=== PATIENT | female | born 1995 | race Caucasian/White ===

== ENCOUNTER 2019-01-24 00:23 | Outpatient (CLI) | payer MEDICAID ==
[~2019-01-24] VITALS: Ht 162.6 cm; Wt 109.5 kg
--- NOTE | 2019-01-24 00:30 | NUR ---
MAHNAZ ARAGON presented to unit via wc from ED, accompanied by adoptive parent, with c/o POSS CONTRACTIONS 37 WKS PREG. MAHNAZ ARAGON weighed, gowned, voided, and to bed. EFHM and TOCO applied, VS taken. MAHNAZ ARAGON oriented to bed controls, call light, TV, heat, and A/C controls. assessments to follow per this rn.
--- NOTE | 2019-01-24 00:56 | NUR ---
Physician at nurses station upon pt arrival and currently. Denies wanting u/a.
[2019-01-24 01:00] VITALS: BP 136/86
[2019-01-24] MEDS ORDERED: LACTATED RINGERS 1,000 ML IV ONE (03:00)
[2019-01-24] MEDS: LACTATED RINGERS 1,000 ML IV SCH ×2 (03:00→06:55)
[2019-01-24] MEDS: BUTORPHANOL INJ 2 MG/ML (STADOL) VIAL IV PRN ×2 (03:58→07:41)
[2019-01-24] MEDS ORDERED: LACTATED RINGERS 1,000 ML IV SCH (04:00)
--- NOTE | 2019-01-24 07:00 | NUR ---
Report from Michael ambrose.
--- NOTE | 2019-01-24 07:00 | NUR ---
spesis screen int not completed as no blood work was drawn to evaluate.
[2019-01-24 07:15] VITALS: BP 133/84
--- NOTE | 2019-01-24 07:30 | NUR ---
Initial assessment completed, vss, pt resting in bed with adopted mother at bedside. See interventions for detailed assessments. Plan of care explained, questions answered, pt verbalizes understanding, monitors readjusted. Will monitor closely.
[2019-01-24 08:00] VITALS: BP 132/85
--- NOTE | 2019-01-24 10:10 | NUR ---
DR PAREDES CALLED, UPDATED ABOUT PT, SVE, CONTRACTION PATTERN, NEW ORDERS RECEIVED, PLAN UPDATED WITH PT, PT VERBALIZES UNDERSTANDING.
[2019-01-24] MEDS ORDERED: hydrOXYzine (VISTARIL) 25 MG capsule/tablet PO ONE (10:30)
--- NOTE | 2019-01-24 10:30 | NUR ---
PT RIDING HOME WITH ADOPTING MOTHER, [facility] 25MG GIVEN PO, D/C INSTRUCTIONS EXPLAINED TO PT/ADOPTING MOTHER, INFORMATION SIGNED, QUESTIONS ANSWERED, EXPLAINED LABOR PRECAUTIONS AND WHEN TO RETURN TO WS IF NEEDED. PT VERBALIZES UNDERSTANDING, DENIES C/O OR NEEDS.
--- NOTE | 2019-01-24 10:45 | NUR ---
PT DISCHARGED TO HOME, AMBULATED PER PT REQUEST TO PRIVATE CAR WITH ADOPTING MOTHER OF , NO DISTRESS NOTED, PT TO FOLLOW UP WITH DR PAREDES ON MondayJanuary FOR APPOINTMENT OR RETURN TO IF NEEDED.
--- NOTE | 2019-01-28 12:44 | Physician Query-Final Dx ---
LEXII RON 01/28/19 1244: Clinic Account Progress/Dx Physician Query: Please give diagnosis Please provide diagnosis and weeks of gestation. Date of Service Jan 24, 2019 at 00:23 ANGELA PAREDES MD 02/09/197: Clinic Account Progress/Dx DIAGNOSIS: Diagnosis: (1) Uterine contractions Diagnosis Contractions without cervical change at 37 weeks 2 days. LEXII RON Jan 28, 2019 12:44 ANGELA PAREDES MD Feb 09, 2019 20:27
== END 2019-01-24 10:45 | disposition home or self-care (01) ==
LOC: LDRP 00:23 → WSo 00:23
PROVIDERS: ATTEND Family Medicine
DX: O62.9 Abnormality of forces of labor, unspecified (principal); Z3A.35 35 weeks gestation of pregnancy
CPT/HCPCS: 96361; 96374; 96376; 99213

== ENCOUNTER 2019-01-31 04:50 | Outpatient (CLI) | payer MEDICAID ==
[~2019-01-31] VITALS: Ht 162.6 cm; Wt 111.6 kg
--- NOTE | 2019-01-31 04:57 | NUR ---
MAHNAZ ARAGON presented to unit via ambulation from ED, accompanied by family, with c/o CRAMPING. MAHNAZ ARAGON weighed, gowned, voided, and to bed. EFHM and TOCO applied, VS taken. MAHNAZ ARAGON oriented to bed controls, call light, TV, heat, and A/C controls.
[2019-01-31 05:10] VITALS: BP 124/89
[2019-01-31] MEDS ORDERED: ACYC200C PO (05:18)
[2019-01-31] MEDS ORDERED: HYDR50CA PO (05:19)
[2019-01-31 06:02] LABS: BACTERIA,URINE FEW /HPF; BILIRUBIN,URINE NEGATIVE (NEGATIVE); CLARITY,URINE SLIGHTLY CLOUDY; COLOR,URINE YELLOW; GLUCOSE, URINE (UA) 2+ (NEGATIVE); KETONES,URINE NEGATIVE (NEGATIVE); LEUKOCYTE ESTERASE ,URINE 1+ (NEGATIVE); NITRITE,URINE NEGATIVE (NEGATIVE); PH,URINE 6 (5-9); PROTEIN,URINE NEGATIVE (NEGATIVE); RBC,URINE RARE /HPF; UROBILINOGEN,URINE 1 MG/DL (NORMAL); WBC,URINE RARE /HPF
--- NOTE | 2019-01-31 06:25 | NUR ---
This RN called Dr Mzea to notify of patient arrival and c/o cramping since last night. Notified of contraction pattern and uterine irritability as well as FHR variability. Notified Dr Meza of vs, all sves, and UA results. New orders for tylenol, benadryl and discharge home received.
[2019-01-31] MEDS ORDERED: ACETAMINOPHEN 500 MG TAB (TYLENOL) ONE (06:34)
[2019-01-31] MEDS ORDERED: diphenhydrAMINE 25 MG TAB (BENADRYL) PO ONE ×2 (06:35→06:45)
--- NOTE | 2019-01-31 06:40 | NUR ---
Discharge instructions given to and reviewed with patient. Encouraged patient to call with any questions or concerns at anytime. Patient verbalized understanding.
[2019-01-31] MEDS ORDERED: ACETAMINOPHEN 500 MG TAB (TYLENOL) PO ONE (06:45)
--- NOTE | 2019-01-31 06:45 | NUR ---
Patient and friend ambulating off of unit to private vehicle at this time.
--- NOTE | 2019-01-31 21:26 | Short Stay Summary-Hospitalist ---
Short Stay Diagnosis D/C Date 01/31/19 Third Trimester 38 week gestation Pelvic pressure Contractions AMOR INFANTE MD Jan 31, 2019 21:26
== END 2019-01-31 06:45 | disposition home or self-care (01) ==
LOC: WSo 04:50 → LDRP 04:51 → WSo 06:45
PROVIDERS: ATTEND Family Medicine
DX: O62.9 Abnormality of forces of labor, unspecified (principal); Z3A.38 38 weeks gestation of pregnancy
CPT/HCPCS: 81000; 99213

== ENCOUNTER 2019-02-06 06:40 | Inpatient (IN) | payer MEDICAID ==
[2019-02-06] VITALS (67 sets, daily range): BP systolic 86–165; BP diastolic 39–103
[~2019-02-06] VITALS: Ht 162.6 cm; Wt 111.6 kg
[~2019-02-06 06:40] MED LIST: ACYC200C PO; HYDR50CA PO
--- NOTE | 2019-02-06 06:45 | NUR ---
MAHNAZ ARAGON presented to unit via ambulatory from ED, accompanied by mother, with c/o INDUCTION. MAHNAZ ARAGON weighed, gowned, voided, and to bed. EFHM and TOCO applied, VS taken. MAHNAZ ARAGON oriented to bed controls, call light, TV, heat, and A/C controls.
--- OUTSIDE RECORDS SUMMARY | 2019-02-06 06:48 | XMS REPORT ---
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 Name Role Phone ANGELA PAREDES Unavailable PROBLEMS Type Condition ICD9-CM Code [id number] Code Onset Dates Condition Status SNOMED Code Problem Lumbago with sciatica, unspecified side M54.40 Active 852528905 Problem Other chronic pain G89.29 Active [id number] ALLERGIES No Known Allergies ENCOUNTERS Encounter Location Date Diagnosis [address] [address] Feb, [facility] [address] [facility] [id number] [address] Jan, [address] [address] Jan, Supervision of other high risk pregnancies, third trimester O09.893 ; Morbid obesity E66.01 and 37 weeks gestation of Z3A.[address] [address] Jan, Supervision of other high risk pregnancies, third trimester O09.893 ; Morbid obesity E66.01 and 36 weeks gestation of Z3A.[address] [address] Jan, Supervision of other high risk pregnancies, third trimester O09.893 ; HSV (herpes simplex virus) infection B00.9 and Morbid obesity E66.[address] [address] Jan, Large for dates P08.1 and Supervision of other high risk pregnancies , third trimester O09.[address] [address] Dec, [address] [address] Dec, Supervision of other high risk pregnancies, third trimester O09.893 and Large for dates P08.[address] [address] Dec, [address] [address] Dec, Supervision of other high risk pregnancies, third trimester O09.893 ; 32 weeks gestation of Z3A.32 ; Other chronic pain G89.29 and Lumbago with sciatica, unspecified side M54.[address] [address] Nov, [facility] [address] [address] [place] [address] Nov, Mouth pain K13.79 and Vomiting R11.10 IMMUNIZATIONS No Known Immunizations SOCIAL HISTORY Never Assessed REASON FOR VISIT OB PLAN OF CARE Activity Details Follow Up 1 Week Reason: VITAL SIGNS Height 64 in 2019-01-14 Weight 234 lbs 2019-01-14 BMI 40.166 kg/m2 2019-01-14 Blood pressure systolic 121 mmHg 2019-01-14 Blood pressure diastolic 70 mmHg 2019-01-14 MEDICATIONS Medication Instructions Dosage Frequency Start Date End Date Duration Status Amoxicillin 500 MG Orally every 8 hrs 1 tablet 8h 14 Nov, 2018 10 day(s ) Unknown Tylenol 325 MG Orally every 4 hrs 1 tablet as needed 4h Unknown Cyclobenzaprine HCl 10 MG Orally Three times a day 1 tablet as needed 8h 11 Dec, 2018 30 days Active 28-0.8 MG Orally Once a day 1 tablet 24h 30 day(s) Active Acyclovir 400 MG Orally Twice a day 1 tablet 12h Jan, 30 days Active HydrOXYzine HCl 25 MG Orally every 8 hrs 1 tablet as needed 8h 22 Dec, 2018 30 days Active Zofran Unknown RESULTS No Results PROCEDURES Procedure Date Ordered Result Body Site LAB NOT BILLED BY [facility] January 14, 2019 INSTRUCTIONS MEDICATIONS ADMINISTERED No Known Medications
[2019-02-06] MEDS ORDERED: OXYTOCIN/NORMAL SALINE 500 ML IV SCH (07:48)
[2019-02-06] MEDS ORDERED: AMPICILLIN FOR IV USE 2,000 MG in WATER (STERILE) FOR INJECTION 14.8 ML IV SCH (07:48)
[2019-02-06] MEDS ORDERED: MINERAL OIL CONCENTRATE 99.9% 15 ML UDC TOP PRN (08:00)
[2019-02-06] MEDS: D5 LR IV SOLUTION 1,000 ML IV SCH ×2 (08:25→16:45)
[2019-02-06 08:41] LABS: BASOPHILS % (AUTO) 0 % (0-10); EOSINOPHILS # (AUTO) 0.2 10^3/uL (0.0-0.3); EOSINOPHILS % (AUTO) 2 % (0-10); HEMATOCRIT 34 % (35-52); LYMPHOCYTES # (AUTO) 1.9 X 10^3 (1.0-4.0); LYMPHOCYTES % (AUTO) 17 % (12-44); MEAN CORPUSCULAR HEMOGLOBIN 27 PG (25-34); MEAN CORPUSCULAR HGB CONC 33 G/DL (32-36); MEAN CORPUSCULAR VOLUME 84 FL (80-99); MEAN PLATELET VOLUME 9.9 FL (7.4-10.4); MONOCYTES # (AUTO) 0.7 X 10^3 (0.0-1.0); MONOCYTES % (AUTO) 6 % (0-12); NEUTROPHILS # (AUTO) 8.6 X 10^3 (1.8-7.8); NEUTROPHILS % (AUTO) 75 % (42-75); PLATELET COUNT 239 10^3/uL (130-400); RED CELL DISTRIBUTION WIDTH 13.5 % (10.0-14.5); WHITE BLOOD COUNT 11.5 10^3/uL (4.3-11.0)
[2019-02-06] MEDS ORDERED: FLU QUADRIvalent (5+ YOA) 2018-2019 (AFLURIA) 0.5 ML IM ONE (09:45)
[2019-02-06] MEDS ORDERED: LACTATED RINGERS 1,000 ML IV ONE (10:15)
[2019-02-06] MEDS ORDERED: SUFENTA 0.6MCG/ML BUPIVA 0.125 100 ML ONE (10:15)
--- NOTE | 2019-02-06 10:47 | NUR ---
[address] AND Jose ROYAL CRNA here for epidural placement. Procedure explained, consent reviewed and signed by anesthesia. Questions answered to patient's satisfaction. Time out taken to verify correct patient/procedure. 1056 Patient up to side of bed, assisted into sitting position. 1101 Betadine prep done x3 and sterile drape applied. 1105 Local done, see anesthesia record. 1111 Test dose given, see anesthesia record for drug and dosage. Epidural catheter secured in place. Epidural placement complete. 1118 Assisted back into bed, monitors adjusted. Epidural dosed, see anesthesia record. Epidural of Sufenta/Bupvicaine @12cc/hr stated per pump. Patient tolerated procedure well.
[2019-02-06] MEDS ORDERED: LIDOCAINE PF 2% 5 ML (XYLOCAINE) VIAL ONE (10:53)
[2019-02-06] MEDS ORDERED: BUPIVACAINE 0.25% 30 ML (SENSORCAINE) VIAL ONE (10:53)
[2019-02-06] MEDS ORDERED: fentaNYL INJECTION 100 MCG/2 ML AMP ONE (10:53)
[2019-02-06] MEDS: EPIDURAL (SUFENTA 0.6MCG/ML BUPIVA 0.125%) 100 ML BAG EPI PRN ×2 (11:20→18:31)
[2019-02-06] MEDS ORDERED: LACTATED RINGERS 1,000 ML IV SCH (11:37)
[2019-02-06] MEDS ORDERED: NALOXONE 0.4 MG/ML 1 ML (NARCAN) VIAL IV PRN ×2 (11:45)
[2019-02-06] MEDS ORDERED: diphenhydrAMINE 50 MG/ML INJ (BENADRYL) IV PRN (11:45)
[2019-02-06] MEDS ORDERED: METOCLOPRAMIDE INJ 10 MG/2 ML (REGLAN) IV PRN (11:45)
[2019-02-06] MEDS: ONDANSETRON 4 MG/2 ML (SDV) Z0FRAN IV PRN ×2 (11:55→20:31)
[2019-02-06] MEDS: AMPICILLIN FOR IV USE 1,000 MG in WATER (STERILE) FOR INJECTION 7.4 ML IV SCH ×3 (13:25→21:45)
[2019-02-06] MEDS ORDERED: CATHETER FLUSH 10 ML SYR IV SCH (14:00)
--- NOTE | 2019-02-06 17:49 | NUR ---
ACCORDING TO RECORDS, FLU VACCINE WAS GIVEN ON 12/22/2018.
[2019-02-06] MEDS ORDERED: LIDOCAINE/EPI 2% 1:200,00 (XYLOCAINE) 10 ML VIAL ONE (20:43)
[2019-02-07] VITALS (19 sets, daily range): BP systolic 99–153; BP diastolic 54–87
--- NOTE | 2019-02-07 04:30 | NUR ---
Epidural cath removed, cath tip in tact, site wnl and left o/a. Pt assisted stand by to bathroom, pericare pads changed as pt voids for the first time . Pt to w/c and tx to pp room 309. Oriented to call system and surroundings. No ss distress noted, understanding voiced, needs denied.
[2019-02-07] MEDS ORDERED: OXYTOCIN/NORMAL SALINE 500 ML IV SCH (04:46)
[2019-02-07] MEDS ORDERED: WITCH HAZEL(TUCKS) 40 EA JAR TOP PRN (05:00)
[2019-02-07] MEDS ORDERED: ACETAMINOPHEN 500 MG TAB (TYLENOL) PO PRN (05:00)
[2019-02-07] MEDS ORDERED: TETANUS,DIPTH,PERTUSS P/F (BOOSTRIX) 0.5 ML VIAL IM ONE (05:00)
[2019-02-07] MEDS ORDERED: BENZOCAINE/MENTHOL (DERMOPLAST) 56 ML CAN TP PRN (05:00)
[2019-02-07] MEDS ORDERED: MEASLES,MUMPS,RUBELLA 1 EA INJ SQ ONE (05:00)
--- NOTE | 2019-02-07 05:15 | NUR ---
Pt up and showers independently. will cont to monitor.
[2019-02-07] MEDS ORDERED: CATHETER FLUSH 10 ML SYR IV SCH (06:00)
--- NOTE | 2019-02-07 08:01 | History & Physical-OB ---
OB - Chief Complaint & HPI Date/Time Date of Admission: Date of Admission: Feb 06, 2019 at 06:40 Date seen by a Provider: Feb 06, 2019 Time Seen by a Provider: 20:00 Chief Complaint/History OB-Reason for Admission/Chief: Induction of Labor Hx : 2 Hx Para: 1 Expected Date of Delivery: Feb 13, 2019 Gestational Age in Weeks: 39 Gestational Age in Days: 1 Indication for induction: maternal discomfort Admission Nurse Assessment Rev: Yes Allergies and Home Medications Allergies Coded Allergies: No Known Drug Allergies (Unverified , 02/06/19) Home Medications Acyclovir Unknown Strength Capsule, Unknown Dose PO BID, (Reported) Patient Home Medication List Home Medication List Reviewed: Yes OB - History Hx of Present Care: Yes Ultrasounds: Normal mid trimester US Obstetrical Complications: None Medical Complications: None Delivery History Adverse Rxn to Tranfusion: No Patient Past Medical History normal Social History/Family History Alcohol Use: Denies Use Recreational Drug Use: No Immunizations Hepatitis B: Yes Date of Influenza Vaccine: Aug 16, 2018 OB - Admission Exam Physical Exam Vitals: Vital Signs 02/07/19 02/07/19 02/07/19 01:10 02:30 04:05 Temp 99.1 Pulse 116 Resp 18 B/P (MAP) 102/61 (75) Pulse Ox 100 O2 Delivery Room Air HEENT: NCAT Heart: Rhythm Normal Lungs: Clear Abdomen: Gravid Extremities: Normal Reflexes: Normal Cervical Dilatation: 5cm Effacement: 75% Station: -1 Membranes: Ruptured Amniotic Fluid: Clear Heart Rate: 130's Accelerations: Accelerations Present Decelerations: No Decelerations Short Term Variability: Present Senior Care Variability: Average (6-25) Contractions on Admission: None Intensity: Mild Labs Laboratory Tests Test 02/06/19 08:30 Range/Units White Blood Count 11.5 H 4.3-11.0 10^3/uL Red Blood Count 4.02 L 4.35-5.85 10^6/uL Hemoglobin 11.0 L 11.5-16.0 G/DL Hematocrit 34 L 35-52 % Mean Corpuscular Volume 84 80-99 FL Mean Corpuscular Hemoglobin 27 25-34 PG Mean Corpuscular Hemoglobin Concent 33 32-36 G/DL Red Cell Distribution Width 13.5 10.0-14.5 % Platelet Count 239 130-400 10^3/uL Mean Platelet Volume 9.9 7.4-10.4 FL Neutrophils (%) (Auto) 75 42-75 % Lymphocytes (%) (Auto) 17 12-44 % Monocytes (%) (Auto) 6 0-12 % Eosinophils (%) (Auto) 2 0-10 % Basophils (%) (Auto) 0 0-10 % Neutrophils # (Auto) 8.6 H 1.8-7.8 X 10^3 Lymphocytes # (Auto) 1.9 1.0-4.0 X 10^3 Monocytes # (Auto) 0.7 0.0-1.0 X 10^3 Eosinophils # (Auto) 0.2 0.0-0.3 10^3/uL Basophils # (Auto) 0.0 0.0-0.1 10^3/uL OB - Assessment/Plan/Diagnosis Assessment Assessment: induction of labor Admission Dx Induction of labor. Admission Status: Inpatient Order (span 2 midnights) Reason for Inpatient Admission: Induction of labor- Labor distocia Plan Plan: Induction Induction Method: per Pitocin Protocol Other Plan Will add IUPC to monitor contraction strength and increase pitocin to 30. Copy Copies To 1: ANGELA PAREDES MD, KATRINA M MD Feb 07, 2019 08:01
--- NOTE | 2019-02-07 08:03 | OB Labor & Delivery Record ---
Vag Delivery Note Vag Delivery Note Date of Delivery: 02/07/19 Preoperative Diagnosis: Fiorella Beal is a (23 /Para 2 / 1,Gestational Age (wks)39with [1 day] Postoperative Diagnosis: Same Surgeon: ANGELA PAREDES Hims Coder: [none] Anesthesia: [epidural] Delivery Type: [] Findings: [] Viable [female] infant, apgars [7/8 at 1 and 5 minutes], weight [7 pounds 15 ounces] Lacerations: Intact placenta with 3 vessel cord. No nuchal cord, body cord or shoulder dystocia Estimated Blood Loss: [200] ml Complications: None Condition: Stable Description of Procedure: The patient is a 23 year old female who presented [for induction of labor]. She was admitted and informed consent was obtained. Her labor course was remarkable for [distocia of labor] She progressed to complete dilatation and began to push. She was then set up for delivery. The infant's head was delivered atraumatically in the [OA] position. The shoulders and remainder of the ' s body were then delivered without difficulty. Upon delivery, the head was held below the level of the perineum and the mouth and nares were bulb suctioned. The cord was doubly clamped after 60 seconds and placed on maternal abdomen. An intact placenta with 3-vessel cord delivered via Marlyn and there was found to be minimal bleeding.~ Vigorous fundal massage was performed and the fundus was found to be firm. IV oxytocin was given. Examination of the vagina and perineum revealed no lacerations. Following the repair, sponge, instrument and needle counts were correct. Mom and baby were both in stable condition in the labor suite. Vitals - Labs Vital Signs - I&O Vital Signs Date Time Temp Pulse Resp B/P (MAP) Pulse Ox O2 Delivery O2 Flow Rate FiO2 02/07/19 04:05 116 18 102/61 (75) Room Air 02/07/19 03:50 106 18 99/56 (70) Room Air 02/07/19 03:35 101 18 106/54 (71) Room Air 02/07/19 03:20 114 18 116/55 (75) Room Air 02/07/19 03:00 120 18 115/56 (75) Room Air 02/07/19 02:30 99.1 18 Room Air 02/07/19 02:15 98.9 101 18 127/74 (91) Room Air 02/07/19 02:00 98.5 110 18 122/70 (87) Room Air 02/07/19 01:45 98.3 113 18 135/80 (98) Room Air 02/07/19 01:30 98.1 18 153/76 (101) Room Air 02/07/19 01:10 105 18 117/68 (84) 100 Non Rebreather 02/07/19 01:00 108 18 122/69 (86) 100 Non Rebreather 02/07/19 00:45 97.7 133 18 125/69 (87) 100 Non Rebreather 02/07/19 00:30 103 18 114/61 (78) 98 Non Rebreather 02/07/19 00:15 106 18 109/59 (76) 100 Non Rebreather 02/07/19 00:00 111 18 111/56 (74) 100 Non Rebreather 02/06/19 23:45 111 18 111/56 (74) 100 Non Rebreather 02/06/19 23:30 103 18 111/56 (74) 100 Non Rebreather 02/06/19 23:15 121 18 113/65 (81) 100 Non Rebreather 02/06/19 23:00 113 18 135/55 (81) 98 Non Rebreather 02/06/19 22:45 104 18 113/58 (76) 100 Non Rebreather 02/06/19 22:30 102 18 114/55 (74) 100 Non Rebreather 02/06/19 22:15 117 18 112/62 (79) 100 Non Rebreather 02/06/19 22:00 103 18 115/63 (80) 100 Non Rebreather 02/06/19 21:45 104 18 100 Non Rebreather 02/06/19 21:30 118 18 117/55 (75) 100 Non Rebreather 02/06/19 21:15 92 18 91/52 (65) 100 Non Rebreather 02/06/19 21:00 98 18 92/54 (67) 100 Non Rebreather 02/06/19 20:45 101 18 92/54 (67) 100 Non Rebreather 02/06/19 20:30 98.7 120 18 112/78 (89) Non Rebreather 02/06/19 20:15 98.7 114 18 131/76 (94) Non Rebreather 02/06/19 20:00 118 18 128/72 (90) 98 Non Rebreather 02/06/19 19:45 116 18 120/58 (78) 98 Non Rebreather 02/06/19 19:30 123 18 98 Room Air 02/06/19 19:15 125 18 130/70 (90) 98 Room Air 02/06/19 19:00 120 18 115/59 (77) 99 Room Air 02/06/19 18:45 122 18 98 Room Air 02/06/19 18:30 115 18 117/68 (84) 98 Room Air 02/06/19 18:15 113 18 123/72 (89) 98 Room Air 02/06/19 18:00 111 18 116/67 (83) 97 Room Air 02/06/19 17:45 105 18 120/68 (85) 97 Room Air 02/06/19 17:30 97.0 108 18 119/69 (86) 97 Room Air 02/06/19 17:15 112 18 111/71 (84) 98 Room Air 02/06/19 17:00 97.3 118 18 109/55 (73) 98 Room Air 02/06/19 16:45 125 18 121/81 (94) Room Air 02/06/19 16:30 112 18 119/67 (84) Room Air 02/06/19 16:15 Room Air 02/06/19 16:00 111 18 116/55 (75) Room Air 02/06/19 15:45 117 18 142/77 (98) Room Air 02/06/19 15:30 97.7 129 18 98 Room Air 02/06/19 15:15 118 18 101/65 (77) 99 Room Air 02/06/19 15:00 115 18 105/52 (69) 99 Room Air 02/06/19 14:45 129 18 98/53 (68) 98 Room Air 02/06/19 14:30 120 18 96/50 (65) 98 Room Air 02/06/19 14:15 117 18 110/66 (81) 97 Room Air 02/06/19 14:00 111 18 108/57 (74) 97 Room Air 02/06/19 13:45 112 18 110/59 (76) 98 Room Air 02/06/19 13:30 107 18 108/56 (73) 97 Room Air 02/06/19 13:15 96.9 121 18 120/68 (85) 97 Room Air 02/06/19 13:00 127 18 86/39 (55) 98 Room Air 02/06/19 12:58 106 20 89/44 (59) Room Air 02/06/19 12:55 111 20 93/52 (66) 97 Room Air 02/06/19 12:51 118 20 97/46 (63) Room Air 02/06/19 12:45 104 18 121/71 (88) 99 Room Air 02/06/19 12:30 104 18 121/63 (82) 98 Room Air 02/06/19 12:15 121 20 118/66 (83) 98 Room Air 02/06/19 12:00 121 20 99 Room Air 02/06/19 11:56 121 20 126/83 (97) Room Air 02/06/19 11:51 131 20 122/69 (86) Room Air 02/06/19 11:47 97.1 124 20 128/71 (90) 99 Room Air 02/06/19 11:45 132 20 99 Room Air 02/06/19 11:41 128 20 141/96 (111) 96 Room Air 02/06/19 11:38 124 20 126/72 (90) 99 Room Air 02/06/19 11:33 114 20 121/67 (85) 98 Room Air 02/06/19 11:30 117 20 99 Room Air 02/06/19 11:25 116 20 126/66 (86) Room Air 02/06/19 11:22 118 20 134/63 (86) 99 Room Air 02/06/19 11:18 114 20 145/73 (97) 98 Room Air 02/06/19 11:16 125 20 145/98 (114) 98 Room Air 02/06/19 11:15 113 20 147/96 (113) 97 Room Air 02/06/19 11:11 111 20 155/98 (117) 98 Room Air 02/06/19 11:08 114 20 165/99 (121) 98 Room Air 02/06/19 11:05 132 20 161/90 (113) 99 Room Air 02/06/19 11:02 114 20 138/88 (105) Room Air 02/06/19 11:00 97.3 124 18 146/103 (117) 99 Room Air 02/06/19 10:45 106 18 141/89 (106) Room Air 02/06/19 10:30 107 18 131/80 (97) Room Air 02/06/19 10:15 104 18 142/83 (102) Room Air 02/06/19 10:00 111 18 134/89 (104) Room Air 02/06/19 09:45 126 18 106/71 (83) Room Air 02/06/19 09:30 97.2 I & O 02/07/19 07:00 Intake Total 4000 ml Balance 4000 ml Labs Laboratory Tests 02/06/19 08:30: White Blood Count 11.5H, Red Blood Count 4.02L, Hemoglobin 11.0L, Hematocrit 34L , Mean Corpuscular Volume 84, Mean Corpuscular Hemoglobin 27, Mean Corpuscular Hemoglobin Concent 33, Red Cell Distribution Width 13.5, Platelet Count 239, Mean Platelet Volume 9.9, Neutrophils (%) (Auto) 75, Lymphocytes (%) (Auto) 17, Monocytes (%) (Auto) 6, Eosinophils (%) (Auto) 2, Basophils (%) (Auto) 0, Neutrophils # (Auto) 8.6H, Lymphocytes # (Auto) 1.9, Monocytes # (Auto) 0.7, Eosinophils # (Auto) 0.2, Basophils # (Auto) 0.0 ANGELA PAREDES MD Feb 07, 2019 08:03
--- NOTE | 2019-02-07 09:00 | NUR ---
A.M. ASSESSMENT COMPLETED. VSS. PLANNING TO ADOPT OUT. ADOPTIVE MOTHER AND FAMILY AND PT'S FAMILY IN ROOM.
--- NOTE | 2019-02-07 09:15 | NUR ---
PT STATES SHE ALREADY SHOWERED. [facility] SUPPLIES TO ROOM.
[2019-02-07] MEDS: IBUPROFEN 600 MG (MOTRIN) TAB PO SCH ×2 (09:29→15:47)
--- NOTE | 2019-02-07 09:29 | NUR ---
C/O CRAMPING. ROUTINE MOTRIN 600 MG P.O.GIVEN. OFFERED WARM BLANKET BUT DECLINES AT THIS TIME.
--- NOTE | 2019-02-07 12:00 | NUR ---
CONTINUES TO HOLD INFANT OFF AND ON WITH ADOPTIVE FAMILY IN AND OUT OF ROOM WELL PT'S FAMILY.
--- NOTE | 2019-02-07 13:30 | NUR ---
PT TEARFUL HOLDING INFANT. HOUSING OFFICER HERE. JUAN MURPHY ON UNIT.
--- NOTE | 2019-02-07 14:20 | Anesthesia-Regional Post-Op ---
Regional Patient Condition Mental Status: Alert, Oriented x3 Circulation: Same as Pre-Op Headache: Absent Sensation: Full Recovery Motor Block: Absent Post Op Complications Complications None Follow Up Care/Instructions Patient Instructions None needed. Anesthesia/Patient Condition Patient is doing well, no complaints, stable vital signs, no apparent adverse anesthesia problems. No complications reported per nursing. GINA ROYAL CRNA Feb 07, 2019 14:20
--- NOTE | 2019-02-07 15:15 | NUR ---
PT'S MOM TO DESK STATING PT WANTING TO LEAVE AFTER PAPERS ARE SIGNED.
--- NOTE | 2019-02-07 15:37 | NUR ---
DR. SANTAMARIA NOTIFIED OF PT WANTING TO LEAVE THIS EVENING. WILL COME SEE PT. SOON.
--- NOTE | 2019-02-07 16:00 | NUR ---
PT'S MOM TO DESK STATING PT GOING TO GO AMA. STATES NEEDS TO GO GET SON AT [facility].
--- NOTE | 2019-02-07 16:06 | NUR ---
DR. SANTAMARIA NOTIFIED OF PT STATING SHE WILL GO AMA BECAUSE SHE DOESN'T WANT TO WAIT TO LEAVE. STATES SHE WILL BE HERE IN 30 MINUTES. PT AND MOM INFORMED.
--- NOTE | 2019-02-07 16:45 | NUR ---
DR. SANTAMARIA HERE TO SEE PT. TALKING WITH PT ABOUT DISCHARGE INSTRUCTIONS.
[2019-02-07] MEDS ORDERED: IBUP-844 PO (16:57)
--- NOTE | 2019-02-07 16:59 | Discharge Instructions ---
Discharge Inst-Women's Serv Depart Medications New, Converted or Re-Newed RX: Transmitted to Pharmacy ([facility]) New Medications: Ibuprofen (Ibu) 600 Mg Tablet 600 MG PO Q6H PRN for CRAMPS, #90 TAB 0 Refills Follow Up/Instructions Goal/Follow Up: Follow-up with Dr. Potter in 6wk Activity Activity: Activity as Tolerated Driving Instructions: You May Drive Nothing Inside Vagina: No Douching, No [place], No Tampons Diet Discharge Diet: No Restrictions Symptoms to Report to : Pain Increased, Fever Over 101 Degrees F, Vaginal Bleeding Increase, Vaginal Discharge Foul, Questions/Concerns, Shortness of Breath For Any Problems or Questions: Contact Your Physician ANNA SANTAMARIA DO Feb 07, 2019 16:59
--- NOTE | 2019-02-07 17:03 | Discharge Summary ---
Diagnosis/Chief Complaint Date of Admission Feb 06, 2019 at 06:40 Date of Discharge Feb 07, 2019 Admission Diagnosis Admission Diagnosis IOL at 39w1d Adoption GBS positive Discharge Diagnosis IOL at 39w1d s/p Adoption GBS positive Discharge Summary-OBS Procedures None. Discharge Physical Examination Allergies: Coded Allergies: No Known Drug Allergies (Unverified , 02/06/19) Vitals & I&Os Intake and Output 02/07/19 00:00 Intake Total 1000 ml Balance 1000 ml Vital Sign - Last 12Hours Date Time Temp Pulse Resp B/P (MAP) Pulse Ox O2 Delivery O2 Flow Rate FiO2 02/07/19 16:10 97.8 107 18 124/87 (99) 98 Room Air General Appearance: Alert, Oriented X3, Cooperative Psych/Mental Status: Mood NL Hospital Course routine course early release due to adoption Discharge Instructions to patient/family Please see electronic discharge instructions given to patient. Discharge Medications Reviewed and agree with Discharge Medication list on patient's Discharge Instruction sheet Clinical Quality Measures DVT/VTE Risk/Contraindication: Risk Factor Score Per Nursin RFS Level Per Nursing on Admit: 2=Moderate ANNA SANTAMARIA DO Feb 07, 2019 17:03
--- NOTE | 2019-02-07 17:10 | NUR ---
CM/SS. Patient had an open adoption pre-arrangement through a law firm in [place] and she voluntarily carried through with her plan after . Patient's support was her mother: Francy Collier, [address], [place] [address], PH [phone] Adoptive parents selected by patient were here: Odell and Karissa Prado of [place] All spent collective time together and bonding with infant, including Karissa's mother. Neurology Hospitalist had requested the involved parliamentary counsel be present for presentation of documents. Beauty Sales Advisor Mustapha Valladares presented Consent to Adoption of a Minor Child to patient, bid writer coordinated notary. Provider Relations Rep had not completed Power of Beauty Sales Advisor for and bid writer requested this before patient could leave hospital. Mustapha returned to his office to complete and provided later same day. Patient signed freely, original to Odell and Karissa, copies of both documents to 's chart. Patient did show strong emotions after signing Consent to Adopt, bid writer asked for confidential conversation with her and patient permitted her mother to stay also. Patient regained control and later showed some controlled tearing when holding . Discussed post relinquishment supports and counseling, patient stated she did not want counseling. Mother was present and indicated she may encourage patient to pursue. Patient has custody of her son age 3 who is temporarily staying with patient's dad and step mom. She was adamant to leave hospital as soon as possible to spend time with her son in [place]. Then she and her mother Francy are to return to [facility] and travel to [place] tomorrow. Patient plans to stay there with her mother 2 weeks for recuperation, then return home in [place].
--- NOTE | 2019-02-07 17:30 | NUR ---
DISCHARGE INSTRUCTIONS REVIEWED WITH COPY TO PT. STATES UNDERSTANDING OF ALL INSTRUCTIONS AND NEED TO F/U SCHEDULED AND NEEDED. DISMISSED FROM WS AMB TO FAMILY CAR IN STABLE CONDITION ACC BY PT'S MOM AND AUSTYN BORDEN. PT AND MOM TEARFUL.
== END 2019-02-07 17:30 | disposition home or self-care (01) | DRG 807 ==
LOC: LDRP 06:40
PROVIDERS: ADMIT Family Medicine; ATTEND Family Medicine
PROC: 3E033VJ Introduction of Other Hormone into Peripheral Vein, Percutaneous Approach (ICD-10-PCS; 2019-02-06)
PROC: 10E0XZZ Delivery of Products of Conception, External Approach (ICD-10-PCS; principal; 2019-02-07)
DX: O66.9 Obstructed labor, unspecified (principal); O99.820 Streptococcus B carrier state complicating pregnancy; Z3A.39 39 weeks gestation of pregnancy; Z37.0 Single live birth
CPT/HCPCS: 36415; 85025; 86850; 86900; 86901

== ENCOUNTER 2019-03-08 21:38 | Emergency (ER) | payer MEDICAID ==
[~2019-03-08] VITALS: Ht 165.1 cm; Wt 98.9 kg
[~2019-03-08 21:38] MED LIST changes: +IBUP-844 PO
--- NOTE | 2019-03-08 22:18 | ED Lower Extremity ---
General Chief Complaint: Lower Extremity Stated Complaint: RT ANKLE INJ Source: patient History of Present Illness Date Seen by Provider: Mar 08, 2019 Time Seen by Provider: 22:18 Initial Comments 23-year-old female presenting with complaints of right ankle pain. She states that she has injured ankle multiple times in the past. She was walking across the yard and axilla stepped in a hole. In the process she felt and heard several pops and cracks in the ankle. She had immediate pain and swelling. She also feels a lot of heat and the ankle and foot. She was concerned that she has a fracture due to the amount of pain and not being able to walk on it. She also admits to having a low tolerance for any pain. She has not taken anything for pain prior to coming in. She states that she immediately came to the emergency department from having the injury. She has not been elevating the ankle or foot since this happened. She has also not had any ice on it. She denies any other injuries from the fall Allergies and Home Medications Allergies Coded Allergies: No Known Drug Allergies (Unverified , 03/08/19) Home Medications Ibuprofen 600 Mg Tablet, 600 MG PO Q6H PRN for CRAMPS Prescribed by: ANNA SANTAMARIA on 02/07/19 1657 Ibuprofen 800 Mg Tablet, 800 MG PO Q8H PRN for PAIN Prescribed by: OLIVERIO VICENTE on 03/08/19 2310 Patient Home Medication List Home Medication List Reviewed: Yes Review of Systems Constitutional: see HPI EENTM: no symptoms reported Respiratory: no symptoms reported Cardiovascular: no symptoms reported Gastrointestinal: no symptoms reported Genitourinary: no symptoms reported Musculoskeletal: see HPI Skin: see HPI Past Gwcddhz-Ugjsnx-Lvhwrc Hx Past Med/Social Hx: Reviewed Nursing Past Med/Soc Hx Patient Social History Recent Foreign Travel: No Contact w/Someone Who Travel: No Recent Hopitalizations: No Immunizations Up To Date PED Vaccines UTD: Yes Date of Influenza Vaccine: Aug 16, 2018 Seasonal Allergies Seasonal Allergies: No Past Medical History Surgeries: No Respiratory: No Cardiac: No Neurological: No Genitourinary: No Gastrointestinal: No Musculoskeletal: No Endocrine: No HEENT: No Cancer: No Psychosocial: No Integumentary: Yes Herpes Blood Disorders: No Adverse Reaction/Blood Tranf: No Family Medical History Congenital heart disease 19 MOTHER Physical Exam Vital Signs Vital Signs - First Documented 03/08/19 22:19 Temp 98.8 Pulse 100 Resp 16 B/P (MAP) 137/102 (114) Pulse Ox 100 O2 Delivery Room Air Capillary Refill : Height, Weight, BMI Height: 5'4.00" Weight: 246lbs. 0.0oz. 111.751572qg; 42.2 BMI Method: General Appearance: WD/WN, mild distress HEENT: PERRL/EOMI Neck: non-tender, full range of motion Cardiovascular: normal peripheral pulses Ankles: right ankle limited range of motion (due to pain and swelling), right ankle pain (right ankle primarily on the lateral malleolus where she has soft tissue swelling), right ankle soft tissue tenderness, right ankle swelling ( primarily to the lateral ankle) Neurologic/Tendon: normal sensation, normal motor functions Neurologic/Psychiatric: alert, normal mood/affect, oriented x 3 Skin: normal color, warm/dry; No ecchymosis Progress/Results/Core Measures Results/Orders My Orders Orders - OLIVERIO VICENTE MD Ankle 3 View Right (03/08/19 22:01) Orthopedic Equiment (03/08/19 23:08) Crutches (03/08/19 23:08) Ibuprofen Tablet (Motrin Tablet) (03/08/19 23:15) Rx-Hydrocodone/Apap 5-325 Mg (Rx-Vicodin (03/08/19 23:15) Ice: Apply To Affected Area (03/08/19 23:17) Medications Given in ED Current Medications Medications Dose Ordered Sig/Mary Route Start Time Stop Time Status Last Admin Dose Admin Ibuprofen 800 mg ONCE ONCE PO 03/08/19 23:15 03/08/19 23:16 DC 03/08/19 23:28 800 MG Vital Signs/I&O 03/08/19 03/08/19 22:19 23:30 Temp 98.8 Pulse 100 100 Resp 16 12 B/P (MAP) 137/102 (114) 127/97 (107) Pulse Ox 100 99 O2 Delivery Room Air Room Air Progress Progress Note : Progress Note On my review of the 3 views of her right ankle there is no definite acute fracture or dislocation. She does have soft tissue swelling that showing up. Reviewed the x-rays with the patient and counseled on symptomatic care. Will place in a walking boot and crutches for weightbearing as tolerated. Rest, ice, elevation and NSAIDs. Will send with a 4 pack of hydrocodone to use for severe pain to help her rest at night. Check with clinic if not improving or having continued severe pain. Diagnostic Imaging Diagonstic Imaging: Xray Plain Films/CT/US/NM/MRI: ankle Comments On my review of her 3 view ankle on the right she has no definite acute fracture or dislocation. She does have soft tissue swelling present primarily on the right lateral malleolus area. Reviewed: Reviewed by Me Departure Impression Primary Impression: Right ankle sprain Qualified Codes: S93.401A - Sprain of unspecified ligament of right ankle, initial encounter Additional Impression: Pain and swelling of right ankle Disposition: HOME, SELF-CARE Condition: Stable Departure-Patient Inst. Decision time for Depature: 23:11 Referrals: NO,LOCAL PHYSICIAN (PCP/Family) Primary Care Physician Patient Instructions: Ankle Sprain (DC), How to Use Crutches, Walking Boot Add. Discharge Instructions: Use Ibuprofen 800 mg every 8 hours to help with pain and inflammation. Hydrocodone at bedtime if needed for severe pain to help you rest Use the walking boot and crutches to help with pain and weight bearing as tolerated. Check with clinic if not improving within the next week or if worsening. May use ice 20 to 30 minutes every few hours as needed for pain and swelling Try to elevate your ankle and rest it as much as possible to help with swelling and pain All discharge instructions reviewed with patient and/or family. Voiced understanding. Scripts Ibuprofen (Ibuprofen) 800 Mg Tablet 800 MG PO Q8H PRN for PAIN for 10 Days, #30 TAB 0 Refills Prov: OLIVERIO VICENTE MD 03/08/19 Work/School Note: Work Release Form Date Seen in the Emergency Department: Mar 08, 2019 Return to Work: Mar 12, 2019 Other Restrictions Listed Below: Wear walking boot and use crutches for weight bearing as tolerated x 1 week OLIVERIO VICENTE MD Mar 08, 2019 22:18
[2019-03-08] MEDS ORDERED: RX-HYDROCODONE/APAP 5/325 MG #4 TAB PK PO PRN (23:15)
[2019-03-08] MEDS ORDERED: IBUPROFEN 800 MG (MOTRIN) TAB PO ONE (23:15)
[2019-03-08] MEDS ORDERED: IBUP-1780 PO (23:15)
[2019-03-08 23:30] VITALS: BP 127/97
--- NOTE | 2019-03-09 07:43 | Diagnostic Imaging Report ---
EXAM: ANKLE 3 VIEW RIGHT INDICATION: Fall. Ankle pain. COMPARISON: None. FINDINGS: No fracture or malalignment. No suspicious osteoblastic or lytic lesions. Soft tissue shadows demonstrate no radiopaque foreign bodies. IMPRESSION: No acute radiographic findings in the right ankle. Dictated by: Dictated on workstation # [id number]
== END 2019-03-08 23:30 | disposition home or self-care (01) ==
LOC: EDUNIT# 21:38 → ER FS 21:39
DX: S93.401A Sprain of unspecified ligament of right ankle, initial encounter (principal); Z86.19 Personal history of other infectious and parasitic diseases; Z82.49 Family history of ischemic heart disease and other diseases of the circulatory system; X50.1XXA Overexertion from prolonged static or awkward postures, initial encounter
CPT/HCPCS: 73610

== ENCOUNTER 2019-05-29 01:04 | Emergency (ER) | payer MEDICAID ==
[~2019-05-29] VITALS: Ht 165.1 cm; Wt 100.7 kg
[~2019-05-29 01:04] MED LIST changes: +IBUP-1780 PO
--- OUTSIDE RECORDS SUMMARY | 2019-05-29 01:09 | XMS REPORT | Continuity of Care Document ---
Author Organization Unknown Address Unknown Allergies Active Description Code Type Severity Reaction Onset Reported/Identified Relationship to Patient Clinical Status Yes No Known Drug Allergies [id number] Drug Allergy Unknown N/A 03/08/2019 Medications There is no data. Problems Date Dx Coded Attending Type Code Diagnosis Diagnosed By 01/31/2019 AMOR INFANTE MD, Ot O62.9 ABNORMALITY OF FORCES OF LABOR, UNSPECIF 01/31/2019 AMOR INFANTE MD, Ot Z3A.38 38 WEEKS GESTATION OF 02/01/2019 AMOR INFANTE MD, Ot O62.9 ABNORMALITY OF FORCES OF LABOR, UNSPECIF 02/01/2019 AMOR INFANTE MD, Ot Z3A.38 38 WEEKS GESTATION OF 02/07/2019 ANGELA PAREDES MD, Ot O66.9 OBSTRUCTED LABOR, UNSPECIFIED 02/07/2019 ANGELA PAREDES MD, Ot O99.820 STREPTOCOCCUS B CARRIER STATE COMPLICATI 02/07/2019 ANGELA PAREDES MD Ot Z37.0 SINGLE LIVE 02/07/2019 ANGELA PAREDES MD, Ot Z3A.39 39 WEEKS GESTATION OF 02/13/2019 ANGELA PAREDES MD, Ot O62.9 ABNORMALITY OF FORCES OF LABOR, UNSPECIF 02/13/2019 ANGELA PAREDES MD, Ot Z3A.35 35 WEEKS GESTATION OF 03/08/2019 OLIVERIO VICENTE MD, Ot M25.571 PAIN IN RIGHT ANKLE AND JOINTS OF RIGHT 03/08/2019 OLIVERIO VICENTE MD, Ot S93.401A SPRAIN OF UNSPECIFIED LIGAMENT OF RIGHT 03/08/2019 OLIVERIO VICENTE MD, Ot X50.1XXA OVEREXERTION FROM PROLONGED STATIC OR AW 03/08/2019 OLIVERIO VICENTE MD, Ot Z82.49 FAMILY HX OF ISCHEM HEART DIS AND OTH DI 03/08/2019 OLIVERIO VICENTE MD, Ot Z86.19 PERSONAL HISTORY OF OTHER INFECTIOUS AND 03/11/2019 OLIVERIO VICENTE MD, Ot M25.571 PAIN IN RIGHT ANKLE AND JOINTS OF RIGHT 03/11/2019 OLIVERIO VICENTE MD, Ot S93.401A SPRAIN OF UNSPECIFIED LIGAMENT OF RIGHT 03/11/2019 OLIVERIO VICENTE MD, Ot X50.1XXA OVEREXERTION FROM PROLONGED STATIC OR AW 03/11/2019 OLIVERIO VICENTE MD, Ot Z82.49 FAMILY HX OF ISCHEM HEART DIS AND OTH DI 03/11/2019 OLIVERIO VICENTE MD, Ot Z86.19 PERSONAL HISTORY OF OTHER INFECTIOUS AND 03/14/2019 OLIVERIO VICENTE MD, Ot M25.571 PAIN IN RIGHT ANKLE AND JOINTS OF RIGHT 03/14/2019 OLIVERIO VICENTE MD, Ot S93.401A SPRAIN OF UNSPECIFIED LIGAMENT OF RIGHT 03/14/2019 OLIVERIO VICENTE MD, Ot X50.1XXA OVEREXERTION FROM PROLONGED STATIC OR AW 03/14/2019 OLIVERIO VICENTE MD, Ot Z82.49 FAMILY HX OF ISCHEM HEART DIS AND OTH DI 03/14/2019 OLIVERIO VICENTE MD, Ot Z86.19 PERSONAL HISTORY OF OTHER INFECTIOUS AND Procedures Code Description Performed By Performed On [id number] INTRODUCTION OF OTH HORMONE INTO PERIPH 02/06/2019 [id number] DELIVERY OF PRODUCTS OF CONCEPTION, EXTE 02/07/2019 Results Test Result Range CULTURE, GROUP B STREP WITH SUSCEPTIBILITY - 01/14/19 16:34 CULTURE, GROUP B STREP WITH SUSCEPTIBILITY SEE NOTE NRG Complete urinalysis with reflex to culture - 01/31/19 05:40 Urine color determination YELLOW NRG Urine clarity determination SLIGHTLY CLOUDY NRG Urine pH measurement by test strip 6 5-9 Specific gravity of urine by test strip 1.025 1.016-1.022 Urine protein assay by test strip, semi-quantitative NEGATIVE NEGATIVE Urine glucose detection by automated test strip 2+ NEGATIVE Erythrocytes detection in urine sediment by light microscopy NEGATIVE NEGATIVE Urine ketones detection by automated test strip NEGATIVE NEGATIVE Urine nitrite detection by test strip NEGATIVE NEGATIVE Urine total bilirubin detection by test strip NEGATIVE NEGATIVE Urine urobilinogen measurement by automated test strip (mass/volume) 1 mg/dL NORMAL Urine leukocyte esterase detection by dipstick 1+ NEGATIVE Automated urine sediment erythrocyte count by microscopy (number/high power field) RARE NRG Automated urine sediment leukocyte count by microscopy (number/high power field) RARE NRG Bacteria detection in urine sediment by light microscopy FEW NRG Squamous epithelial cells detection in urine sediment by light microscopy 2-5 NRG Crystals detection in urine sediment by light microscopy NONE NRG Casts detection in urine sediment by light microscopy NONE NRG Mucus detection in urine sediment by light microscopy NEGATIVE NRG Complete urinalysis with reflex to culture NO NRG Complete blood count (CBC) with automated white blood cell (WBC) differential - 02/06/19 08:30 Blood leukocytes automated count (number/volume) 11.5 10*3/uL 4.3-11.0 Blood erythrocytes automated count (number/volume) 4.02 10*6/uL 4.35-5.85 Venous blood hemoglobin measurement (mass/volume) 11.0 g/dL 11.5-16.0 Blood hematocrit (volume fraction) 34 % 35-52 Automated erythrocyte mean corpuscular volume 84 [foz_us] 80-99 Automated erythrocyte mean corpuscular hemoglobin (mass per erythrocyte) 27 pg 25-34 Automated erythrocyte mean corpuscular hemoglobin concentration measurement (mass/volume) 33 g/dL 32-36 Automated erythrocyte distribution width ratio 13.5 % 10.0- 14.5 Automated blood platelet count (count/volume) 239 10*3/uL 130-400 Automated blood platelet mean volume measurement 9.9 [foz_us] 7.4-10.4 Automated blood neutrophils/100 leukocytes 75 % 42-75 Automated blood lymphocytes/100 leukocytes 17 % 12-44 Blood monocytes/100 leukocytes 6 % 0-12 Automated blood eosinophils/100 leukocytes 2 % 0-10 Automated blood basophils/100 leukocytes 0 % 0-10 Blood neutrophils automated count (number/volume) 8.6 10*3 1.8-7.8 Blood lymphocytes automated count (number/volume) 1.9 10*3 1.0-4.0 Blood monocytes automated count (number/volume) 0.7 10*3 0.0- 1.0 Automated eosinophil count 0.2 10*3/uL 0.0-0.3 Automated blood basophil count (count/volume) 0.0 10*3/uL 0.0-0.1 Blood type T Indirect antibody screen panel - 02/06/19 08:30 ABO+Rh group OP NRG Transfusion band number [id number] NRG Blood group antibody screen NEGATIVE NRG Encounters ACCT No. Visit Date/Time Discharge Status Pt. Type Provider Facility Loc./Unit Complaint [id number] 04/26/2019 13:45:00 04/26/2019 23:59:59 C[facility] [id number] 01/14/2019 16:00:00 Document Registration [id number] 03/08/2019 21:39:00 03/08/2019 23:30:00 DIS Emergency OLIVERIO VICENTE MD [facility] ER FS RT ANKLE INJ [id number] 02/06/2019 06:40:00 02/07/2019 17:30:00 DIS Inpatient ANGELA PAREDES MD [facility] LDRP INDUCTION [id number] 01/31/2019 04:50:00 01/31/2019 06:45:00 DIS Outpatient [facility] [id number] 01/24/2019 00:23:00 01/24/2019 10:45:00 DIS Outpatient [facility] POSS CONTRACTIONS 37 WKS PREG
[2019-05-29] MEDS ORDERED: NS IV 1000 ML 1,000 ML IV SCH (01:17)
--- NOTE | 2019-05-29 01:25 | ED General ---
General Stated Complaint: VOMITING WITH BLOOD Source of Information: Patient, EMS History of Present Illness Date Seen by Provider: May 29, 2019 Time Seen by Provider: 01:04 Initial Comments 23-year-old female presents to the emergency room by EMS. She reports drinking alcohol tonight and feel like she drank too much. She was dizzy and lightheaded. She started vomiting and reportedly had blood or dark red appearance to her vomit. She is very anxious and hyperventilating at times. She denies any pain. She states that she has been drinking a lot of red bowls recently. She reports drinking multiple things tonight. Sometimes she states that she drank a few beers than some shots of whiskey, Ciroc and some wine. Other times she states she was drinking 5 beers, several shots, mixed drinks, 5 shots of Ciroc and Wine. She reports that she started drinking around 9:30 and quit about 15 min utes before the paramedics got there. Allergies and Home Medications Allergies Coded Allergies: No Known Drug Allergies (Unverified , 05/29/19) Home Medications Ibuprofen 600 Mg Tablet, 600 MG PO Q6H PRN for CRAMPS Prescribed by: ANNA SANTAMARIA on 02/07/19 1657 Ibuprofen 800 Mg Tablet, 800 MG PO Q8H PRN for PAIN Prescribed by: OLIVERIO VICENTE on 03/08/19 2315 Patient Home Medication List Home Medication List Reviewed: Yes Review of Systems Review of Systems Constitutional: No chills, No fever EENTM: no symptoms reported Respiratory: No cough, No short of breath; other (hyperventilating at times) Cardiovascular: No chest pain; palpitations Gastrointestinal: nausea, vomiting (vomiting tonight and per EMS had red color to it) Genitourinary: No dysuria, No hematuria Musculoskeletal: No back pain Skin: no symptoms reported Psychiatric/Neurological: Anxiety Hematologic/Lymphatic: No Symptoms Reported Past Anbvpjn-Vmayyr-Efhggo Hx Past Med/Social Hx: Reviewed Nursing Past Med/Soc Hx Patient Social History Type Used: Cigarettes 2nd Hand Smoke Exposure: No Recent Hopitalizations: No Immunizations Up To Date PED Vaccines UTD: Yes Date of Influenza Vaccine: Aug 16, 2018 Seasonal Allergies Seasonal Allergies: No Past Medical History Surgeries: No Respiratory: No Cardiac: No Neurological: No Genitourinary: No Gastrointestinal: No Musculoskeletal: No Endocrine: No HEENT: No Cancer: No Psychosocial: No Integumentary: No Herpes Blood Disorders: No Adverse Reaction/Blood Tranf: No Family Medical History Congenital heart disease 19 MOTHER Physical Exam Vital Signs Vital Signs - First Documented 05/29/19 05/29/19 01:07 02:31 Temp 98.9 Pulse 124 Resp 30 B/P (MAP) 126/66 (86) Pulse Ox 100 O2 Delivery Room Air Capillary Refill : Height, Weight, BMI Height: 5'5.00" Weight: 218lbs. 0.0oz. 98.692213jr; 42.2 BMI Method:Stated General Appearance: Anxious, Moderate Distress (hyperventilating at times), Obese Eyes: Bilateral Eye PERRL, Bilateral Eye EOMI HEENT: Pharynx Normal Neck: Full Range of Motion, Normal Inspection, Non Tender, Supple Respiratory: Chest Non Tender, Lungs Clear Cardiovascular: Regular Rate, Rhythm, Normal Peripheral Pulses Gastrointestinal: Normal Bowel Sounds, No Pulsatile Mass, Non Tender, Soft Extremity: Normal Range of Motion, Non Tender, No Calf Tenderness Neurologic/Psychiatric: Alert, Oriented x3 Skin: Normal Color, Warm/Dry Progress/Results/Core Measures Suspected Sepsis SIRS Temperature: Pulse: Respiratory Rate: Laboratory Tests 05/29/19 01:35: White Blood Count 10.0 Blood Pressure / Mean: Laboratory Tests 05/29/19 01:35: Creatinine 0.69, Platelet Count 329, Total Bilirubin 0.2 Results/Orders Lab Results Laboratory Tests Test 05/29/19 01:35 Range/Units White Blood Count 10.0 4.3-11.0 10^3/uL Red Blood Count 4.89 4.35-5.85 10^6/uL Hemoglobin 13.3 11.5-16.0 G/DL Hematocrit 40 35-52 % Mean Corpuscular Volume 83 80-99 FL Mean Corpuscular Hemoglobin 27 25-34 PG Mean Corpuscular Hemoglobin Concent 33 32-36 G/DL Red Cell Distribution Width 14.6 H 10.0-14.5 % Platelet Count 329 130-400 10^3/uL Mean Platelet Volume 10.5 H 7.4-10.4 FL Neutrophils (%) (Auto) 72 42-75 % Lymphocytes (%) (Auto) 20 12-44 % Monocytes (%) (Auto) 5 0-12 % Eosinophils (%) (Auto) 2 0-10 % Basophils (%) (Auto) 1 0-10 % Neutrophils # (Auto) 7.2 1.8-7.8 X 10^3 Lymphocytes # (Auto) 2.0 1.0-4.0 X 10^3 Monocytes # (Auto) 0.5 0.0-1.0 X 10^3 Eosinophils # (Auto) 0.2 0.0-0.3 10^3/uL Basophils # (Auto) 0.1 0.0-0.1 10^3/uL Sodium Level 142 135-145 MMOL/L Potassium Level 3.2 L 3.6-5.0 MMOL/L Chloride Level 100 98-107 MMOL/L Carbon Dioxide Level 16 L 21-32 MMOL/L Anion Gap 26 H 5-14 MMOL/L Blood Urea Nitrogen 11 7-18 MG/DL Creatinine 0.69 0.60-1.30 MG/DL Estimat Glomerular Filtration Rate > 60 BUN/Creatinine Ratio 16 Glucose Level 107 H 70-105 MG/DL Calcium Level 9.8 8.5-10.1 MG/DL Corrected Calcium 8.5-10.1 MG/DL Total Bilirubin 0.2 0.1-1.0 MG/DL Aspartate Amino Transf (AST/SGOT) 60 H 5-34 U/L Alanine Aminotransferase (ALT/SGPT) 116 H 0-55 U/L Alkaline Phosphatase 83 40-136 U/L Total Protein 7.7 6.4-8.2 GM/DL Albumin 4.7 H 3.2-4.5 GM/DL Serum Test, Qualitative NEGATIVE NEGATIVE Salicylates Level < 0.3 L 5.0-20.0 MG/DL Acetaminophen Level < 10 L 10-30 UG/ML Serum Alcohol 76 H <10 MG/DL My Orders Orders - OLIVERIO VICENTE MD Ua Culture If Indicated (05/29/19 01:17) Cbc With Automated Diff (05/29/19:17) Comprehensive Metabolic Panel (05/29/19 01:17) Alcohol (05/29/19 01:17) Drug Screen Stat (Urine) (05/29/19:17) Acetaminophen (05/29/19 01:17) Salicylate (05/29/19 01:17) Ekg Tracing (05/29/19:17) Ed Iv/Invasive Line Start (05/29/19 01:17) Monitor-Rhythm Ecg Trace Only (05/29/19 01:17) Ns Iv 1000 Ml (Sodium Chloride 0.9%) (05/29/19 01:17) Hcg,Qualitative Serum (05/29/19 01:17) Vital Signs/I&O 05/29/19 05/29/19 01:07 02:31 Temp 98.9 98.7 Pulse 124 114 Resp 30 20 B/P (MAP) 126/66 (86) 120/70 (87) Pulse Ox 100 O2 Delivery Room Air Room Air Capillary Refill : Progress Note #1: Time: 01:15 Progress Note Check labs and urinalysis as well as urine drug screen and alcohol level. Obtain electrocardiogram since she is tachycardic. Give IV fluids for hydration Progress Note #2: Progress Note After IV fluids patient had told the nurses that she was feeling better. She had family and a friend here with her and stated that she needed to the leave because she had to be to work at 3:30 AM. She pulled her own IV out and left AGAINST MEDICAL ADVICE prior to speaking with me as her provider. I did not get a chance to go over any risks or benefits of staying for further evaluation and treatment vs leaving AGAINST MEDICAL ADVICE. Her labs showed her alcohol level was only 76. She had not given us a urine specimen to be able to check for other drugs in her system. CBC and Chemistry otherwise were not showing acute abnormalities to account for her symptoms. ECG Initial ECG Impression Date: May 29, 2019 Initial ECG Impression Time: 01:46 Initial ECG Rate: 114 Initial ECG Rhythm: S.Tach Initial ECG Comparisson: No Previous ECG Available Comment Sinus tachycardia with heart rate 114 bpm. HI interval 159 ms. Low voltage precordial leads. QT interval of 346 ms and a QT corrected interval of 477 ms. There is no prior tracing for comparison. No acute ST elevation. Departure Impression Primary Impression: Left against medical advice Additional Impression: Alcohol intoxication Qualified Codes: F10.920 - Alcohol use, unspecified with intoxication, uncomplicated Disposition: 07 AGAINST MEDICAL ADVICE Condition: Against Medical Advice Departure-Patient Inst. Referrals: NO,LOCAL PHYSICIAN (PCP/Family) Primary Care Physician OLIVERIO VICENTE MD May 29, 2019 01:25
[2019-05-29 01:48] LABS: HEMATOCRIT 40 % (35-52); HEMOGLOBIN 13.3 G/DL (11.5-16.0); MEAN CORPUSCULAR HEMOGLOBIN 27 PG (25-34); MEAN CORPUSCULAR HGB CONC 33 G/DL (32-36); MEAN CORPUSCULAR VOLUME 83 FL (80-99)
[2019-05-29 01:49] LABS: BASOPHILS # (AUTO) 0.1 10^3/uL (0.0-0.1); BASOPHILS % (AUTO) 1 % (0-10); EOSINOPHILS # (AUTO) 0.2 10^3/uL (0.0-0.3); EOSINOPHILS % (AUTO) 2 % (0-10); LYMPHOCYTES % (AUTO) 20 % (12-44); MEAN PLATELET VOLUME 10.5 FL (7.4-10.4); MONOCYTES # (AUTO) 0.5 X 10^3 (0.0-1.0); MONOCYTES % (AUTO) 5 % (0-12); NEUTROPHILS # (AUTO) 7.2 X 10^3 (1.8-7.8); NEUTROPHILS % (AUTO) 72 % (42-75); PLATELET COUNT 329 10^3/uL (130-400); RED CELL DISTRIBUTION WIDTH 14.6 % (10.0-14.5)
[2019-05-29 02:08] LABS: BILIRUBIN,TOTAL 0.2 MG/DL (0.1-1.0); BUN/CREATININE RATIO 16; CALCIUM 9.8 MG/DL (8.5-10.1); CARBON DIOXIDE 16 MMOL/L (21-32); CHLORIDE 100 MMOL/L (98-107); CREATININE SERUM 0.69 MG/DL (0.60-1.30); GFR ESTIMATED > 60; GLUCOSE 107 MG/DL (70-105); POTASSIUM 3.2 MMOL/L (3.6-5.0); SODIUM 142 MMOL/L (135-145)
[2019-05-29 02:09] LABS: ACETAMINOPHEN < 10 UG/ML (10-30); ALANINE AMINOTRANSFERASE 116 U/L (0-55); ALBUMIN 4.7 GM/DL (3.2-4.5); ALKALINE PHOSPHATASE 83 U/L (40-136); SALICYLATE < 0.3 MG/DL (5.0-20.0); TOTAL PROTEIN 7.7 GM/DL (6.4-8.2)
--- NOTE | 2019-05-29 02:11 | NUR ---
PT. ATTEMPTED TO VOID BUT WAS UNSUCCESSFUL AT THIS TIME.
--- NOTE | 2019-05-29 02:15 | NUR ---
PT. REPORTED THAT SHE HAS BEEN DRINKING RED BULLS THE LAST 3 DAYS.
--- NOTE | 2019-05-29 02:30 | NUR ---
PT. DECIDED TO GO AMA. SHE SIGNED THE PAPER AND WALKED OUT OF THE ER STATING SHE WAS FINE.
[2019-05-29 02:31] VITALS: BP 120/70
== END 2019-05-29 02:36 | disposition left against medical advice (07) ==
LOC: EDUNIT# 01:04 → ER FS 01:05
DX: F10.129 Alcohol abuse with intoxication, unspecified (principal); Z82.49 Family history of ischemic heart disease and other diseases of the circulatory system; Y90.3 Blood alcohol level of 60-79 mg/100 ml
CPT/HCPCS: 36415; 80053; 80320; 80329; 84703; 85025; 93005; 93041

== ENCOUNTER 2019-08-24 20:06 | Emergency (ER) | payer MEDICAID ==
[~2019-08-24] VITALS: Ht 164 cm; Wt 104.8 kg
[2019-08-24] MEDS ORDERED: predniSONE 20 MG TAB PO ONE (20:30)
[2019-08-24] MEDS ORDERED: IBUPROFEN 800 MG (MOTRIN) TAB PO ONE (20:30)
[2019-08-24] MEDS ORDERED: PSEUDOEPHEDRINE HCL 30 MG (SUDAFED) TAB PO ONE (20:30)
[2019-08-24] MEDS ORDERED: ACETAMINOPHEN 325 MG TABLET PO ONE (20:30)
--- NOTE | 2019-08-24 20:39 | ED Cough/URI ---
General Chief Complaint: Cough/Cold/Flu Symptoms Stated Complaint: COUGH Nursing Triage Note: Patient states that she has been coughing for 2 weeks with what she believes in a cold. Patient states that it got worse yesterday after getting Nexplanon in her left arm. Today patient began to have body aches and is concerned she has the flu. No fever is noted. Sepsis Screen: No Definite Risk History of Present Illness Date Seen by Provider: Aug 24, 2019 Time Seen by Provider: 20:10 Initial Comments The patient is a 23-year-old female with a history of mild intermittent asthma who presents with concern for 2 weeks of mild dry cough. More recently, over the last 1 day, the patient has developed upper respiratory symptoms including rhinorrhea, nasal congestion and mild malaise. No fevers, nausea or vomiting, abdominal pain, flank pain, dysuria or hematuria, changes in bowel habits. Patient is well-appearing and vital signs including oxygenation are generally reassuring upon initial evaluation the emergency department. No therapy for symptoms prior to arrival. Allergies and Home Medications Allergies Coded Allergies: No Known Drug Allergies (Unverified , 05/29/19) Home Medications Ibuprofen 600 Mg Tablet, 600 MG PO Q6H PRN for CRAMPS Prescribed by: ANNA SANTAMARIA on 02/07/19 1657 Ibuprofen 800 Mg Tablet, 800 MG PO Q8H PRN for PAIN Prescribed by: OLIVERIO VICENTE on 03/08/19 2315 Patient Home Medication List Home Medication List Reviewed: Yes Review of Systems Review of Systems Constitutional: see HPI All Other Systems Reviewed Negative Unless Noted: Yes (Negative excepted noted.) Past Yvfadzq-Foptle-Nhttnv Hx Past Med/Social Hx: Reviewed Nursing Past Med/Soc Hx Patient Social History Alcohol Use: Denies Use Recreational Drug Use: No Smoking Status: Never a Smoker Type Used: Cigarettes 2nd Hand Smoke Exposure: No Recent Foreign Travel: No Contact w/Someone Who Travel: No Recent Infectious Disease Expo: No Recent Hopitalizations: No Physical Abuse: No Sexual Abuse: No Mistreated: No Fear: No Immunizations Up To Date PED Vaccines UTD: Yes Date of Influenza Vaccine: Aug 16, 2018 Seasonal Allergies Seasonal Allergies: No Past Medical History Surgeries: No Respiratory: No Cardiac: No Neurological: No Genitourinary: No Gastrointestinal: No Musculoskeletal: No Endocrine: No HEENT: No Cancer: No Psychosocial: No Integumentary: No Herpes Blood Disorders: No Adverse Reaction/Blood Tranf: No Family Medical History Reviewed Nursing Family Hx Congenital heart disease 19 MOTHER Physical Exam Vital Signs - First Documented 08/24/19 20:10 Temp 36.6 Pulse 119 Resp 20 B/P (MAP) 126/90 (102) Pulse Ox 100 O2 Delivery Room Air Capillary Refill : Less Than 3 Seconds Height: 5'5.00" Weight: 222lbs. 1.0oz. 100.435757ux; 38.00 BMI Method:Actual General Appearance: no apparent distress This is a younger female appearing nontoxic and in no acute distress. Head is normocephalic and atraumatic. Neck is supple and nontender. Oropharynx is moist. There is mild erythema to bilateral turbinates and mild nasal mucus noted to bilateral nares. Lungs with wheezes noted in all abbott with very good air movement bilaterally and no tachypnea. Patient is not recruiting accessory musculature of respiration and is speaking comfortably in full sentences with no distress. There is a normal S1 and S2 without rubs or gallops and capillary refill is appropriate, less than 2 seconds globally. There is a non-tachycardic, regular rhythm. Abdomen is soft, nontender and nondistended. Skin is warm and dry without cyanosis, clubbing or edema. Psychiatrically, the patient demonstrates appropriate mood and affect and is alert. Progress/Results/Core Measures Suspected Sepsis Recent Fever Within 48 Hours: No Infection Criteria Present: Suspected New Infection New/Unexplained Altered Menta: No Sepsis Screen: No Definite Risk SIRS Temperature: Pulse: 119 Respiratory Rate: 20 Blood Pressure 126 /90 Mean: 102 Results/Orders My Orders Orders - ELENA MELO MD Prednisone Tablet (Deltasone Tablet) (08/24/19 20:30) Ibuprofen Tablet (Motrin Tablet) (08/24/19 20:30) Acetaminophen Tablet/Caplet (Tylenol T (08/24/19 20:30) Pseudoephedrine Tablet (Sudafed Tablet) (08/24/19 20:30) Vital Signs/I&O 08/24/19 20:10 Temp 36.6 Pulse 119 Resp 20 B/P (MAP) 126/90 (102) Pulse Ox 100 O2 Delivery Room Air Capillary Refill : Less Than 3 Seconds Blood Pressure Mean: 102 Progress Note : Time: 20:37 Progress Note Clinical examination reassuring. Well-appearing young woman with history of mild intermittent asthma who presents with mild dry cough 2 weeks in association with wheezing. Moving air well and oxygen saturation is appropriate. Also with mild viral upper respiratory symptoms over the last 1 day. We will treat the patient's asthma exacerbation with a steroid burst and an inhaler and will treat upper respiratory symptoms with ibuprofen, Tylenol and Sudafed. Patient is encouraged to follow up with primary care and we will refer her to [facility] for follow-up in the next 1-2 days. She understands that if she feels worse is that of better or develops other new symptoms of concern that she will need to return immediately for reevaluation. All questions are answered. Departure Impression Primary Impression: Mild intermittent asthma with acute exacerbation in adult Additional Impression: Viral upper respiratory infection Disposition: HOME, SELF-CARE Condition: Improved Departure-Patient Inst. Referrals: LINA SHRESTHA MD Patient Instructions: Cough, Adult (DC), Asthma in Adults, Viral Upper Respiratory Infection, Adult (DC) Add. Discharge Instructions: Please follow up with a [facility] primary care physician in the next 1-2 days in the clinic as discussed. Return immediately if symptoms worsen or if other new symptoms of concern develop. Use the medications as prescribed for your symptoms. Scripts Prednisone (Prednisone) 20 Mg Tab 40 MG PO DAILY for 5 Days, #10 TAB 0 Refills Prov: ELENA MELO MD 08/24/19 Albuterol Sulfate (VENTOLIN HFA) 1 Puff Puff 2 PUFF INH Q4H for cough/SOA, #1 EA 1 PUFF = 90 MCG Prov: ELENA MELO MD 08/24/19 [pseudoephedrine 15mg] No Conflict Check 30 MG PO Q6H for Congestion, #24 TAB Prov: ELENA MELO MD 08/24/19 Acetaminophen (Tylenol) 325 Mg Capsule 975 MG PO Q8H for Pain, #50 CAP Prov: ELENA MELO MD 08/24/19 Ibuprofen (Ibuprofen) 800 Mg Tablet 800 MG PO Q8H PRN for PAIN, #30 TAB 0 Refills Prov: ELENA MELO MD 08/24/19 ELENA MELO MD Aug 24, 2019 20:39
[2019-08-24] MEDS ORDERED: IBUP-1780 PO (20:44)
[2019-08-24] MEDS ORDERED: ACET325C5 PO (20:44)
[2019-08-24] MEDS ORDERED: PRD20T PO (20:44)
[2019-08-24] MEDS ORDERED: RT-ALBUINH INH (20:44)
[2019-08-24] MEDS ORDERED: PSEUDOEPHEDRINE PO (20:44)
[2019-08-24] MEDS ORDERED: RX-ALBUTEROL INHALER (PROAIR) 8.5 GM IH ONE (20:45)
[2019-08-24 20:50] VITALS: BP 126/90
== END 2019-08-24 20:50 | disposition home or self-care (01) ==
LOC: EDUNIT# 20:06 → ER FS 20:08
DX: J45.21 Mild intermittent asthma with (acute) exacerbation (principal); J06.9 Acute upper respiratory infection, unspecified; Z82.49 Family history of ischemic heart disease and other diseases of the circulatory system
CPT/HCPCS: 87804

== ENCOUNTER 2019-09-14 19:05 | Emergency (ER) | payer MEDICAID ==
[~2019-09-14] VITALS: Ht 164.6 cm; Wt 106.1 kg
[~2019-09-14 19:05] MED LIST changes: +ACET325C5 PO; +PRD20T PO; +PSEUDOEPHEDRINE PO; +RT-ALBUINH INH
[2019-09-14] MEDS ORDERED: AMOX500C2 PO (19:20)
--- NOTE | 2019-09-14 19:21 | ED EENT ---
History of Present Illness General Stated Complaint: DENTAL PAIN Source: patient Exam Limitations: no limitations History of Present Illness Date Seen by Provider: Sep 14, 2019 Time Seen by Provider: 19:06 Initial Comments Patient presents to ER by private conveyance with chief complaint of left lower molar pain and dental caries. She's had to have a root canal on her right side lower molars in the past and she suspect this is the same thing again. She has not been on antibiotics nor seen a dentist. She would like her tooth pulled today. She has not used any Tylenol she has been using ibuprofen. No fevers chills or discharge. Allergies and Home Medications Allergies Coded Allergies: No Known Drug Allergies (Unverified , 05/29/19) Home Medications Acetaminophen 325 Mg Capsule, 975 MG PO Q8H Prescribed by: ELENA MELO on 08/24/192043 Albuterol Sulfate 1 Puff Puff, 2 PUFF INH Q4H 1 PUFF = 90 MCG Prescribed by: ELENA MELO on 08/24/192043 Ibuprofen 600 Mg Tablet, 600 MG PO Q6H PRN for CRAMPS Prescribed by: ANNA SANTAMARIA on 02/07/19 1657 Ibuprofen 800 Mg Tablet, 800 MG PO Q8H PRN for PAIN Prescribed by: OLIVERIO VICENTE on 03/08/19 2315 Ibuprofen 800 Mg Tablet, 800 MG PO Q8H PRN for PAIN Prescribed by: ELENA MELO on 08/24/192043 Prednisone 20 Mg Tab, 40 MG PO DAILY Prescribed by: ELENA MELO on 08/24/192043 [pseudoephedrine 15mg] , 30 MG PO Q6H Prescribed by: ELENA MELO on 08/24/192043 Patient Home Medication List Home Medication List Reviewed: Yes Review of Systems Review of Systems Constitutional: No chills, No fever Eyes: Denies Blindness, Denies Blurred Vision Ears: Denies Pain, Denies Tinnitus Nose: denies clots, denies congestion Past Tqtcpdb-Wiyfwd-Cmojyl Hx Patient Social History Alcohol Use: Denies Use Recreational Drug Use: No Smoking Status: Current Everyday Smoker Type Used: Cigarettes 2nd Hand Smoke Exposure: No Recent Foreign Travel: No Recent Hopitalizations: No Immunizations Up To Date PED Vaccines UTD: Yes Date of Influenza Vaccine: Aug 16, 2018 Seasonal Allergies Seasonal Allergies: No Past Medical History Surgeries: No Respiratory: No Cardiac: No Neurological: No Genitourinary: No Gastrointestinal: No Musculoskeletal: No Endocrine: No HEENT: No Cancer: No Psychosocial: No Integumentary: No Herpes Blood Disorders: No Adverse Reaction/Blood Tranf: No Family Medical History Congenital heart disease 19 MOTHER Physical Exam Height, Weight, BMI Height: 5'5.00" Weight: 222lbs. 1.0oz. 100.850162vi; 38.00 BMI Method:Actual General Appearance: WD/WN, mild distress Eyes: bilateral eye normal inspection, bilateral eye PERRL, bilateral eye EOMI Ears: bilateral ear auricle normal, bilateral ear canal normal Nose: normal inspection; No active bleeding, No discharge Mouth/Throat: other (dental caries with left lower molars with extensive dental caries and tender to palpation but no fluctuance swelling or abscess visible) Departure Impression Primary Impression: Dental abscess Disposition: HOME, SELF-CARE Condition: Stable Departure-Patient Inst. Decision time for Depature: 19:18 Referrals: ANGELA PAREDES MD (PCP/Family) Primary Care Physician Patient Instructions: Tooth Abscess (DC) Add. Discharge Instructions: Please make plans to follow-up with a dentist for definitive care of your tooth. In the meantime start the amoxicillin one capsule 3 times a day with food for the next week. Expect some relief of pain and swelling in the next 3-4 days. You can use viscous lidocaine jelly 3-5 ML's applied to some gauze directly over the tooth every 6 hours as needed for pain. Tylenol 1000 mg every 8 hours as needed for pain. Ibuprofen 800 mg every 8 hours as needed for pain. Warm compresses applied outside the jaw. Scripts Amoxicillin (Amoxicillin) 500 Mg Capsule 500 MG PO TID, #21 CAP 0 Refills Prov: BETSY LIU 09/14/19 Work/School Note: Work Release Form Date Seen in the Emergency Department: Sep 14, 2019 Return to Work: Sep 15, 2019 Restrictions: No Restrictions BETSY LIU Sep 14, 2019 19:21 POS
[2019-09-14] MEDS ORDERED: LIDOCAINE 2% VISCOUS 15 ML UDC PO ONE (19:30)
--- NOTE | 2019-09-14 19:40 | NUR ---
PT REFUSED MEDICATION AFTER MED WAS OPENED AND PREPARED. PT STATES SHE DOES NOT LIKE THE NUMBING FEELING AND DID NOT WANT IT.
[2019-09-14 19:45] VITALS: BP 132/81
== END 2019-09-14 19:40 | disposition home or self-care (01) ==
LOC: EDUNIT# 19:05 → ER FS 19:06
DX: K04.7 Periapical abscess without sinus (principal); F17.210 Nicotine dependence, cigarettes, uncomplicated; Z82.49 Family history of ischemic heart disease and other diseases of the circulatory system
CPT/HCPCS: 99282

== ENCOUNTER 2020-02-12 08:25 | Emergency (ER) | payer MEDICAID ==
[~2020-02-12] VITALS: Ht 167.7 cm; Wt 106.0 kg
[~2020-02-12 08:25] MED LIST changes: -ACET325C5 PO; +ACET325C7 PO; +AMOX500C2 PO
--- NOTE | 2020-02-12 08:25 | NUR ---
Patient arrived to ED via [facility] reporting severe nausea and has "called [facility]. hotline before 0500 as needed advice and was encouraged to be seen by a provider." Pt states, "She explained I can not find anyone that can drive me so told go to ER." Pt dialed 911 stating the [facility] hotline told her to come to ER. EMS advised to where appropriate [employer] attire. Pt arrived with mask on that she continues to pull down and up. Pt sobbing with hysteria, flailing on cart, and yelling she wants her mother. Pt noted to have respirations at 28/min and starting c/o tingling and feeling "funny". Pt has rapid short sentences rambling.
--- NOTE | 2020-02-12 08:30 | NUR ---
This RN and Dr Hernandez entered room in [facility] appropriate attire w/N95 mask choice. Very difficult to assess as patient gets instructed to slow her breathing as she speeds it up with giving hx. Pt told she appears to be symptomatic of hyperventilation. Dr hartmann pt. Pt reports awoke 0300 with nausea/vomiting. No fever, no cough, no SOA, no contacts with [facility] known patients, traveled to [facility] in [place] yesterday to [employer] friends kid.
--- OUTSIDE RECORDS SUMMARY | 2020-02-12 08:31 | XMS REPORT | Continuity of Care Document ---
Author Organization Unknown Address Unknown Phone Unavailable Allergies Active Description Code Type Severity Reaction Onset Reported/Identified Relationship to Patient Clinical Status Yes No Known Drug Allergies [id number] Drug Allergy Unknown N/A 05/29/2019 Medications There is no data. Problems Date Dx Coded Attending Type Code Diagnosis Diagnosed By 01/24/2019 ANGELA PAREDES MD, Ot O62 .9 ABNORMALITY OF FORCES OF LABOR, UNSPECIF 01/24/2019 ANGELA PAREDES MD, Ot Z3A.35 35 WEEKS GESTATION OF 01/31/2019 AMOR INFANTE MD Ot O62.9 ABNORMALITY OF FORCES OF LABOR, UNSPECIF 01/31/2019 AMOR INFANTE MD Ot Z3A.3 8 38 WEEKS GESTATION OF 02/01/2019 AMOR INFANTE MD Ot O62.9 ABNORMALITY OF FORCES OF LABOR, UNSPECIF 02/01/2019 AMOR INFANTE MD Ot Z3A.3 8 38 WEEKS GESTATION OF 02/07/2019 ANGELA PAREDES MD, Ot O66 .9 OBSTRUCTED LABOR, UNSPECIFIED 02/07/2019 ANGELA PAREDES MD, Ot O99.820 STREPTOCOCCUS B CARRIER STATE COMPLICATI 02/07/2019 ANGELA PAREDES MD Ot Z37 .0 SINGLE LIVE 02/07/2019 ANGELA PAREDES MD, Ot Z3A.39 39 WEEKS GESTATION OF 02/13/2019 ANGELA PAREDES MD, Ot O62 .9 ABNORMALITY OF FORCES OF LABOR, UNSPECIF 02/13/2019 ANGELA PAREDES MD, Ot Z3A.35 35 WEEKS GESTATION OF 03/08/2019 OLIVERIO VICENTE MD, Ot M25.5 71 PAIN IN RIGHT ANKLE AND JOINTS OF RIGHT 03/08/2019 OLIVERIO VICENTE MD, Ot S93.401A SPRAIN OF UNSPECIFIED LIGAMENT OF RIGHT 03/08/2019 OLIVERIO VICENTE MD, Ot X50.1XXA OVEREXERTION FROM PROLONGED STATIC OR AW 03/08/2019 OLIVERIO VICENTE MD Ot Z82.4 9 FAMILY HX OF ISCHEM HEART DIS AND OTH DI 03/08/2019 OLIVERIO VICENTE MD Ot Z86.1 9 PERSONAL HISTORY OF OTHER INFECTIOUS AND 03/11/2019 OLIVERIO VICENTE MD Ot M25.5 71 PAIN IN RIGHT ANKLE AND JOINTS OF RIGHT 03/11/2019 OLIVERIO VICENTE MD Ot S93.401A SPRAIN OF UNSPECIFIED LIGAMENT OF RIGHT 03/11/2019 OLIVERIO VICENTE MD Ot X50.1XXA OVEREXERTION FROM PROLONGED STATIC OR AW 03/11/2019 OLIVERIO VICENTE MD Ot Z82.4 9 FAMILY HX OF ISCHEM HEART DIS AND OTH DI 03/11/2019 OLIVERIO VICENTE MD Ot Z86.1 9 PERSONAL HISTORY OF OTHER INFECTIOUS AND 03/14/2019 OLIVERIO VICENTE MD Ot M25.5 71 PAIN IN RIGHT ANKLE AND JOINTS OF RIGHT 03/14/2019 OLIVERIO VICENTE MD Ot S93.401A SPRAIN OF UNSPECIFIED LIGAMENT OF RIGHT 03/14/2019 OLIVERIO VICENTE MD Ot X50.1XXA OVEREXERTION FROM PROLONGED STATIC OR AW 03/14/2019 OLIVERIO VICENTE MD Ot Z82.4 9 FAMILY HX OF ISCHEM HEART DIS AND OTH DI 03/14/2019 OLIVERIO VICENTE MD Ot Z86.1 9 PERSONAL HISTORY OF OTHER INFECTIOUS AND 05/29/2019 OLIVERIO VICENTE MD Ot F10.1 29 ALCOHOL ABUSE WITH INTOXICATION, UNSPECI 05/29/2019 OLIVERIO VICENTE MD Ot R42 DIZZINESS AND GIDDINESS 05/29/2019 OLIVERIO VICENTE MD Ot Y90.3 BLOOD ALCOHOL LEVEL OF 60-79 MG/100 ML 05/29/2019 OLIVERIO VICENTE MD Ot Z82.4 9 FAMILY HX OF ISCHEM HEART DIS AND OTH DI 06/04/2019 OLIVERIO VICENTE MD Ot F10.1 29 ALCOHOL ABUSE WITH INTOXICATION, UNSPECI 06/04/2019 OLIVERIO VICENTE MD Ot R42 DIZZINESS AND GIDDINESS 06/04/2019 OLIVERIO VICENTE MD Ot Y90.3 BLOOD ALCOHOL LEVEL OF 60-79 MG/100 ML 06/04/2019 OLIVERIO VICENTE MD Ot Z82.4 9 FAMILY HX OF ISCHEM HEART DIS AND OTH DI 08/28/2019 ELENA MELO MD, Ot J06. 9 ACUTE UPPER RESPIRATORY INFECTION, UNSPE 08/28/2019 ELENA MELO MD, Ot J45. 21 MILD INTERMITTENT ASTHMA WITH (ACUTE) EX 08/28/2019 ELENA MELO MD Ot R05 COUGH 08/28/2019 ELENA MELO MD, Ot Z82. 49 FAMILY HX OF ISCHEM HEART DIS AND OTH DI 09/19/2019 BETSY LIU MD Ot F17.210 NICOTINE DEPENDENCE, CIGARETTES, UNCOMPL 09/19/2019 BETSY LIU MD Ot K04. 7 PERIAPICAL ABSCESS WITHOUT SINUS 09/19/2019 BETSY LIU MD, Ot K08. 89 OTHER SPECIFIED DISORDERS OF TEETH AND S 09/19/2019 BETSY LIU MD, Ot Z82. 49 FAMILY HX OF ISCHEM HEART DIS AND OTH DI Procedures Code Description Performed By Per formed On [id number] IN TRODUCTION OF OTH HORMONE INTO PERIPH 02/06/2019 [id number] DE LIVERY OF PRODUCTS OF CONCEPTION, EXTE 02/07/2019 Results Test Result Range CULTURE, GROUP B STREP WITH SUSCEPTIBILI TY - 01/14/19 16:34 CULTURE, GROUP B STREP WITH SUSCEPTIBILITY SEE NOT E NRG Complete urinalysis with reflex to cultu re - 01/31/19 05:40 Urine color determination YELLOW NRG Urine clarity determination SLIGHTLY CLOUDY NRG Urine pH measurement by test strip 6 5-9 Specific gravity of urine by test strip 1.025 1.016-1.022 Urine protein assay by test strip, semi-quantitative NEGATIVE NEGATIVE Urine glucose detection by automated test strip 2+ NEGATIVE Erythrocytes detection in urine sediment by light micr oscopy NEGATIVE NEGATIVE Urine ketones detection by automated test strip NE GATIVE NEGATIVE Urine nitrite detection by test strip NEGATIVE NEGATIVE Urine total bilirubin detection by test strip NEGA TIVE NEGATIVE Urine urobilinogen measurement by automated test strip (mass/volume) 1 mg/dL NORMAL Urine leukocyte esterase detection by dipstick 1+ NEGATIVE Automated urine sediment erythrocyte cou nt by microscopy (number/high power field) RARE NRG Automated urine sediment leukocyte count by microscopy (number/high power field) RARE NRG Bacteria detection in urine sediment by light microsco py FEW NRG Squamous epithelial cells detection in u rine sediment by light microscopy 2-5 NRG Crystals detection in urine sediment by light microsco py NONE NRG Casts detection in urine sediment by light microscopy NONE NRG Mucus detection in urine sediment by light microscopy NEGATIVE NRG Complete urinalysis with reflex to culture NO NRG Complete blood count (CBC) with automate d white blood cell (WBC) differential - 02/06/19 08:30 Blood leukocytes automated count (number/volume) 11.5 10*3/uL 4.3-11.0 Blood erythrocytes automated count (number/volume) 4.02 10*6/uL 4.35-5.85 Venous blood hemoglobin measurement (mass/volume) 11.0 g/dL 11.5-16.0 Blood hematocrit (volume fraction) 34 % 35-52 Automated erythrocyte mean corpuscular volume 84 [ foz_us] 80-99 Automated erythrocyte mean corpuscular h emoglobin (mass per erythrocyte) 27 pg 25-34 Automated erythrocyte mean corpuscular h emoglobin concentration measurement (mass/volume) 33 g/dL 32-36 Automated erythrocyte distribution width ratio 13. 5 % 10.0- 14.5 Automated blood platelet count [...] 10*3 1.0-4.0 Blood monocytes automated count (number/volume) 0. 7 10*3 0.0-1.0 Automated eosinophil count 0.2 10*3/uL 0 .0-0.3 Automated blood basophil count (count/volume) 0.0 10*3/uL 0.0-0.1 Blood type T Indirect antibody screen pa wale - 02/06/19 08:30 ABO+Rh group OP NRG Transfusion band number [id number] NRG Blood group antibody screen NEGATIVE NR G Complete blood count (CBC) with automate d white blood cell (WBC) differential - 05/29/19 01:35 Blood leukocytes automated count (number/volume) 10.0 10*3/uL 4.3-11.0 Blood erythrocytes automated count (number/volume) 4.89 10*6/uL 4.35-5.85 Venous blood hemoglobin measurement (mass/volume) 13.3 g/dL 11.5-16.0 Blood hematocrit (volume fraction) 40 % 35-52 Automated erythrocyte mean corpuscular volume 83 [ foz_us] 80-99 Automated erythrocyte mean corpuscular h emoglobin (mass per erythrocyte) 27 pg 25-34 Automated erythrocyte mean corpuscular h emoglobin concentration measurement (mass/volume) 33 g/dL 32-36 Automated erythrocyte distribution width ratio 14. 6 % 10.0- 14.5 Automated blood platelet count (count/volume) 329 10*3/uL 130-400 Automated blood platelet mean volume measurement 10.5 [foz_us] 7.4-10.4 Automated blood neutrophils/100 leukocytes 72 % 42-75 Automated blood lymphocytes/100 leukocytes 20 % 12-44 Blood monocytes/100 leukocytes 5 % 0-12 Automated blood eosinophils/100 leukocytes 2 % 0-10 Automated blood basophils/100 leukocytes 1 % 0-10 Blood neutrophils automated count (number/volume) 7.2 10*3 1.8-7.8 Blood lymphocytes automated count (number/volume) 2.0 10*3 1.0-4.0 Blood monocytes automated count (number/volume) 0. 5 10*3 0.0-1.0 Automated eosinophil count 0.2 10*3/uL 0 .0-0.3 Automated blood basophil count (count/volume) 0.1 10*3/uL 0.0-0.1 Serum or plasma choriogonadotropin (preg annika test) detection - 05/29/19 01:35 Serum or plasma choriogonadotropin ( test) de tection NEGATIVE NEGATIVE Comprehensive metabolic panel - 05/29/19 01:35 Serum or plasma sodium measurement (moles/volume) 142 mmol/L 135-145 Serum or plasma potassium measurement (moles/volume) 3.2 mmol/L 3.6-5.0 Serum or plasma chloride measurement (moles/volume) 100 mmol/L 98-107 Carbon dioxide 16 mmol/L 21-32 Serum or plasma anion gap determination (moles/volume) 26 mmol/L 5-14 Serum or plasma urea nitrogen measurement (mass/volume ) 11 mg/dL 7-18 Serum or plasma creatinine measurement (mass/volume) 0.69 mg/dL 0.60-1.30 Serum or plasma urea nitrogen/creatinine mass ratio 16 NRG Serum or plasma creatinine measurement w ith calculation of estimated glomerular filtration rate > NRG Serum or plasma glucose measurement (mass/volume) 107 mg/dL 70-105 Serum or plasma calcium measurement (mass/volume) 9.8 mg/dL 8.5-10.1 Serum or plasma total bilirubin measurement (mass/volu me) 0.2 mg/dL 0.1-1.0 Serum or plasma alkaline phosphatase parish surement (enzymatic activity/volume) 83 U/L 40-136 Serum or plasma aspartate aminotransfera se measurement (enzymatic activity/volume) 60 U/L 5-34 Serum or plasma alanine aminotransferase measurement (enzymatic activity/volume) 116 U/L 0-55 Serum or plasma protein measurement (mass/volume) 7.7 g/dL 6.4-8.2 Serum or plasma albumin measurement (mass/volume) 4.7 g/dL 3.2-4.5 Serum or plasma salicylates measurement (mass/volume) - 05/29/19 01:35 Serum or plasma salicylates measurement (mass/volume) < mg/dL 5.0-20.0 Serum or plasma acetaminophen measuremen t (mass/volume) - 05/29/19 01:35 Serum or plasma acetaminophen measurement (mass/volume ) < ug/mL 10-30 Serum or plasma ethanol measurement (mas s/volume) - 05/29/19 01:35 Serum or plasma ethanol measurement (mass/volume) 76 mg/dL <10 TSH w/ FREE T4 - 08/06/19 15:13 TSH 0.80 mIU/L NRG T4, FREE 1.0 ng/dL 0.8-1.8 Influenza virus A and B antigen detectio n - 08/24/19 20:10 FLU RESULT NEGATIVE FOR INFLUENZA A AND B ANTIGENS BY IA NRG Encounters ACCT No. Visit Date/Time Discharge Status Pt. Type Provider Facility Loc./Unit Complaint [id number] 08/23/2019 12:40:00 08/23/2019 23:59: 59 CLS Outpatient ANGELA PAREDES [facility] [id number] 08/06/2019 14:40:00 Document Registration [id number] 01/14/2019 16:00:00 Document Registration [id number] 09/14/2019 19:06:00 19:40:00 DIS Outpatient ALEXA ROSE, BETSY Phipps [facility] ER FS DENTAL PAIN [id number] 08/24/2019 20:08:00 20:50:00 DIS Outpatient KAMERON ROSE, ELENA Dang [facility] ER FS COUGH [id number] 05/29/2019 01:05:00 02:36:00 DIS Emergency JULES ROSE, OLIVERIO Shanks [facility] ER FS VOMITING WITH BLOOD [id number] 03/08/2019 21:39:00 23:30:00 DIS Emergency OLIVERIO VICENTE MD [facility] ER FS RT ANKLE INJ [id number] 02/06/2019 06:40:00 17:30:00 DIS Inpatient ANGELA PAREDES MD [facility] LDRP INDUCTION [id number] 01/31/2019 04:50:00 06:45:00 DIS Outpatient [facility] [id number] 01/24/2019 00:23:00 10:45:00 DIS Outpatient [facility]GELA [facility]ES [facility] POSS CONTRACTIONS [address] P[address]
[2020-02-12] MEDS ORDERED: LIDOCAINE 2% VISCOUS 15 ML UDC PO ONE (08:45)
[2020-02-12] MEDS ORDERED: LORazepam INJ 2 MG/ML (ATIVAN) VIAL IVP PRN (08:45)
[2020-02-12] MEDS ORDERED: ONDANSETRON 4 MG/2 ML (SDV) Z0FRAN IVP ONE (08:45)
[2020-02-12] MEDS ORDERED: ANTACID SUSP 30 ML UDC (MYLANTA) PO ONE (08:45)
[2020-02-12] MEDS ORDERED: NS IV 1000 ML 1,000 ML IV SCH ×2 (08:45→09:45)
--- NOTE | 2020-02-12 08:52 | ED GI ---
General Stated Complaint: NAUSEA Source of Information: Patient Exam Limitations: No Limitations History of Present Illness Date Seen by Provider: Feb 12, 2020 Time Seen by Provider: 08:35 Initial Comments The patient is a 24-year-old female who presents for evaluation of epigastric abdominal discomfort as well as nausea and vomiting which began at 0300 today. Nausea seems to be her primary complaint. She states that she felt okay when she went to sleep last night. She arrives via EMS. She called the [place] [id number] hotline to discuss her symptoms, apparently because she had a temperature of 99.0F. She denies any shortness of breath, cough, or taste/smell abnormalities She denies sick contacts or travel. She was told by them to go to the emergency department to be evaluated for her symptoms but that her symptoms did not fit the criteria of COVID- and that she likely would not be tested. She is hyperventilating and appears extremely anxious. She denies any history of abdominal surgeries and states that she takes no prescription medications at this time. Her pain is in the upper abdomen and is nonradiating. She denies any alcohol abuse, history of gastritis/peptic ulcer disease. She states that she has felt similar when she has had flulike illnesses in the past. She is alert and oriented 4, very anxious, but appears to be in no distress at this time. She denies cough, sick contacts, fever, back or flank pain, diarrhea, rectal bleeding, hematemesis, chest pain or tightness, headache, neck pain, urinary complaints, pelvic pain/bleeding/discharge, dizziness or syncope. Timing/Duration: 4-6 Hours Severity/Quality: Moderate Location: Epigastric Radiation: No Radiation Activities at Onset: None Modifying Factors: Improves With Breathing (states breathing fast helps with her nausea) Associated Symptoms: No Chest Pain; Fever/Chills, Nausea/Vomiting; No Shortness of Air Allergies and Home Medications Allergies Coded Allergies: No Known Drug Allergies (Unverified , 05/29/19) Home Medications No Active Prescriptions or Reported Meds Patient Home Medication List Home Medication List Reviewed: Yes Review of Systems Review of Systems Constitutional: no symptoms reported EENTM: No Symptoms Reported Respiratory: No Symptoms Reported; Denies Cough, Denies Shortness of Air Cardiovascular: No Symptoms Reported Gastrointestinal: No Symptoms Reported Genitourinary: No Symptoms Reported Musculoskeletal: no symptoms reported Skin: no symptoms reported Psychiatric/Neurological: No Symptoms Reported Endocrine: No Symptoms Reported Hematologic/Lymphatic: No Symptoms Reported All Other Systems Reviewed Negative Unless Noted: Yes Past Spkwlgj-Pewkaf-Ctfcvq Hx Past Med/Social Hx: Reviewed Nursing Past Med/Soc Hx Patient Social History Type Used: Cigarettes 2nd Hand Smoke Exposure: No Recent Foreign Travel: Yes Recent Hopitalizations: No Immunizations Up To Date PED Vaccines UTD: Yes Date of Influenza Vaccine: Aug 16, 2018 Seasonal Allergies Seasonal Allergies: No Past Medical History Surgeries: No Respiratory: No Cardiac: No Neurological: No Genitourinary: No Gastrointestinal: No Musculoskeletal: No Endocrine: No HEENT: No Cancer: No Psychosocial: No Integumentary: No Herpes Blood Disorders: No Adverse Reaction/Blood Tranf: No Family Medical History Congenital heart disease 19 MOTHER Physical Exam Vital Signs Vital Signs - First Documented 02/12/20 08:30 Temp 36.0 Pulse 109 Resp 20 B/P (MAP) 159/91 (113) Pulse Ox 100 O2 Delivery Room Air Capillary Refill : Height/Weight/BMI Height: 5'5.00" Weight: 222lbs. 1.0oz. 100.868759op; 39.00 BMI Method:Actual General Appearance: WD/WN, no apparent distress HEENT: PERRL/EOMI, normal ENT inspection Neck: non-tender, full range of motion, supple Respiratory: chest non-tender, lungs clear, normal breath sounds, other (hyperventilating) Cardiovascular: regular rate, rhythm, no edema, no JVD Gastrointestinal: normal bowel sounds, non tender, soft Extremities: normal range of motion, non-tender, normal inspection, no pedal edema Neurologic/Psychiatric: no motor/sensory deficits, alert, oriented x 3 Skin: normal color, warm/dry Progress/Results/Core Measures Results/Orders Lab Results Laboratory Tests Test 02/12/20 08:50 02/12/20 10:10 02/12/20 11:00 Range/Units White Blood Count 20.9 H 4.3-11.0 10^3/uL Red Blood Count 4.93 4.35-5.85 10^6/uL Hemoglobin 14.1 11.5-16.0 G/DL Hematocrit 42 35-52 % Mean Corpuscular Volume 85 80-99 FL Mean Corpuscular Hemoglobin 29 25-34 PG Mean Corpuscular Hemoglobin Concent 34 32-36 G/DL Red Cell Distribution Width 13.1 10.0-14.5 % Platelet Count 300 130-400 10^3/uL Mean Platelet Volume 10.3 7.4-10.4 FL Neutrophils (%) (Auto) 90 H 42-75 % Lymphocytes (%) (Auto) 4 L 12-44 % Monocytes (%) (Auto) 5 0-12 % Eosinophils (%) (Auto) 0 0-10 % Basophils (%) (Auto) 0 0-10 % Neutrophils # (Auto) 18.9 H 1.8-7.8 X 10^3 Lymphocytes # (Auto) 0.8 L 1.0-4.0 X 10^3 Monocytes # (Auto) 1.0 0.0-1.0 X 10^3 Eosinophils # (Auto) 0.0 0.0-0.3 10^3/uL Basophils # (Auto) 0.1 0.0-0.1 10^3/uL Neutrophils % (Manual) 81 % Lymphocytes % (Manual) 5 % Monocytes % (Manual) 4 % Band Neutrophils 10 % Sodium Level 139 135-145 MMOL/L Potassium Level 3.7 3.6-5.0 MMOL/L Chloride Level 101 98-107 MMOL/L Carbon Dioxide Level 21 21-32 MMOL/L Anion Gap 17 H 5-14 MMOL/L Blood Urea Nitrogen 9 7-18 MG/DL Creatinine 0.69 0.60-1.30 MG/DL Estimat Glomerular Filtration Rate > 60 BUN/Creatinine Ratio 13 Glucose Level 121 H 70-105 MG/DL Calcium Level 10.0 8.5-10.1 MG/DL Corrected Calcium 8.5-10.1 MG/DL Total Bilirubin 0.8 0.1-1.0 MG/DL Aspartate Amino Transf (AST/SGOT) 19 5-34 U/L Alanine Aminotransferase (ALT/SGPT) 29 0-55 U/L Alkaline Phosphatase 75 40-136 U/L Total Protein 8.4 H 6.4-8.2 GM/DL Albumin 5.0 H 3.2-4.5 GM/DL Amylase Level 33 25-125 U/L Lipase 11 8-78 U/L Human Chorionic Gonadotropin, Quant < 5 <5 MIU/ML Urine Color YELLOW Urine Clarity CLEAR Urine pH >9.0 5-9 Urine Specific [place] 1.015 L 1.016-1.022 Urine Protein NEGATIVE NEGATIVE Urine Glucose (UA) NEGATIVE NEGATIVE Urine Ketones NEGATIVE NEGATIVE Urine Nitrite NEGATIVE NEGATIVE Urine Bilirubin NEGATIVE NEGATIVE Urine Urobilinogen 0.2 < = 1.0 MG/DL Urine Leukocyte Esterase NEGATIVE NEGATIVE Urine RBC (Auto) NEGATIVE NEGATIVE Urine RBC RARE /HPF Urine WBC RARE /HPF Urine Squamous Epithelial Cells RARE /HPF Urine Crystals NONE /LPF Urine Bacteria NEGATIVE /HPF Urine Casts NONE /LPF Urine Mucus NONE /LPF Urine Culture Indicated NO Group A Streptococcus Screen NEGATIVE NEGATIVE Micro Results Microbiology 02/12/20 Influenza Types A,B Antigen ([place]) - Final, Complete My Orders Orders - AIDEE LOVELACE DO Ua Culture If Indicated (02/12/20 08:33) Cbc With Automated Diff (02/12/20 08:44) Lipase (02/12/20 08:44) Amylase (02/12/20 08:44) Comprehensive Metabolic Panel (02/12/20 08:44) Ondansetron Injection (Zofran Injectio (02/12/20 08:45) Ns Iv 1000 Ml (Sodium Chloride 0.9%) (02/12/20 08:45) Lidocaine 2% Viscous 15 Ml (Xylocaine Vi (02/12/20 08:45) Antacid Suspension (Mylanta Suspension (02/12/20 08:45) Lorazepam Injection (Ativan Injection) (02/12/20 08:45) Manual Differential (02/12/20 08:50) Ns Iv 1000 Ml (Sodium Chloride 0.9%) (02/12/20 09:45) Hcg,Quantitative (02/12/20 10:00) Iohexol Injection (Omnipaque 350 Mg/Ml 1 (02/12/20 10:15) Sodium Chloride Flush (Catheter Flush Sy (02/12/20 10:15) Ns (Ivpb) (Sodium Chloride 0.9% Ivpb Bag (02/12/20 10:15) Received Contrast (Hold Metformin- Contr (02/12/20 10:15) Urine Bedside (02/12/20 10:20) Ct Abdomen/Pelvis W (02/12/20 ) Chest 1 View Ap/Pa Only (02/12/20 10:36) Influenza A And B Antigens (02/12/20 10:56) Rapid Strep A Screen (02/12/20 10:56) Acetaminophen Tablet (Tylenol Tablet) (02/12/20 11:00) Medications Given in ED Current Medications Medications Dose Ordered Sig/Mary Route Start Time Stop Time Status Last Admin Dose Admin Acetaminophen 1,000 mg ONCE ONCE PO 02/12/20 11:00 02/12/20 11:01 DC 02/12/20 11:03 1,000 MG Al Hydrox/Mg Hydrox/Simethicone 30 ml ONCE ONCE PO 02/12/20 08:45 02/12/20 08:47 DC 02/12/20 09:28 30 ML Iohexol 100 ml ONCE ONCE IV 02/12/20 10:15 02/12/20 10:16 DC 02/12/20 10:09 100 ML Lidocaine HCl 15 ml ONCE ONCE PO 02/12/20 08:45 02/12/20 08:47 DC 02/12/20 09:29 15 ML Lorazepam 0.5 mg ONCE PRN IVP 02/12/20 08:45 02/12/20 09:04 0.5 MG Ondansetron HCl 4 mg ONCE ONCE IVP 02/12/20 08:45 02/12/20 08:47 DC 02/12/20 09:03 4 MG Sodium Chloride 10 ml NEEDED PRN IV 02/12/20 10:15 02/12/20 10:09 10 ML Sodium Chloride 100 ml ONCE ONCE IV 02/12/20 10:15 02/12/20 10:16 DC 02/12/20 10:09 80 ML Vital Signs/I&O 02/12/20 02/12/20 08:30 11:03 Temp 36.0 38.0 Pulse 109 Resp 20 B/P (MAP) 159/91 (113) Pulse Ox 100 O2 Delivery Room Air Progress Progress Note : Progress Note @1150 - patient updated on all lab and imaging results. She is adamantly stating that she has not had any cough or shortness of breath at any time recently. She was noted to have a 100.4 temperature in the emergency department and coronavirus testing was considered even though her symptoms do not fit that infection and she has no risk factors or sick contacts. She does not want to be tested. She does not meet criteria for testing. Advised the patient to continue to self quarantine as she is febrile for the next 14 days and to return to the emergency department for difficult breathing, new or worsening symptoms. The patient expresses verbal understanding and agree with the plan and is stable for discharge. She does state that she feels much better at this time. Diagnostic Imaging Diagonstic Imaging: Xray, CT Comments NAME: MAHNAZ ARAGON [facility] REC#: [id number] PT STATUS: REG ER : 1995 PHYSICIAN: AIDEE LOVELACE DO ADMIT DATE: 02/12/20/ER FS Draft Date of Exam:02/12/20 CT ABDOMEN/PELVIS W PROCEDURE: CT abdomen and pelvis with contrast. TECHNIQUE: Multiple contiguous axial images were obtained through the abdomen and pelvis after administration of intravenous contrast. Auto Exposure Controls were utilized during the CT exam to meet ALARA standards for radiation dose reduction. INDICATION: Upper abdominal pain with nausea and vomiting. No prior studies are available for comparison. The lung bases are clear. The liver demonstrates generalized low density consistent with hepatic steatosis. No discrete liver mass is detected. Gallbladder is unremarkable. No biliary duct dilatation is identified. The pancreas and spleen are unremarkable. No adrenal mass is identified. The kidneys are unremarkable. Aorta is non-aneurysmal. The small and large bowel loops are normal caliber. No obstruction is identified. No free fluid or fluid collection is seen. No free air is identified. Bladder, uterus and ovaries are unremarkable. No abdominal or pelvic lymphadenopathy is seen. Bony structures are unremarkable. IMPRESSION: 1. Hepatic steatosis. 2. No acute feature in the abdomen or pelvis is identified. Dictated on workstation # [id number] Dict: 02/12/20 1029 Trans: 02/12/20 1032 [place] [id number] Interpreted by: CASS MOTLEY MD Electronically signed by: LILLY VIA [place] NAME: MAHNAZ ARAGON [facility] REC#: [id number] PT STATUS: REG ER : 1995 PHYSICIAN: AIDEE LOVELACE DO ADMIT DATE: 02/12/20/ER FS Draft Date of Exam:02/12/20 CHEST 1 VIEW AP/PA ONLY INDICATION: Leukocytosis. Abdominal pain. COMPARISON: None FINDINGS: Single frontal view of the chest demonstrates normal heart size and pulmonary vascularity. The lungs are well aerated and clear. No large pleural effusion or pneumothorax is seen. The visualized osseous structures show no acute abnormalities. IMPRESSION: 1. No acute cardiopulmonary process. Dictated on workstation # [id number] Dict: 02/12/20 1055 Trans: 02/12/20 1056 [id number] Interpreted by: GINA JUAREZ MD Electronically signed by: Departure Impression Primary Impression: Nausea and vomiting Additional Impressions: Leukocytosis Fever Flu-like symptoms Gastritis Disposition: HOME, SELF-CARE Condition: Stable Departure-Patient Inst. Decision time for Depature: 11:49 Referrals: ANGELA PAREDES MD (PCP/Family) Primary Care Physician Patient Instructions: Fever of Unknown Origin (DC), Fever, Adult (DC), Gastritis (DC), Nausea and Vomiting, Adult, VIRAL SYNDROME Add. Discharge Instructions: Take the prescribed medication as directed, as needed. As discussed he should continue to self quarantined the next 14 days. Your symptoms did not fit with the coronavirus see were not tested today but you did have a fever. Follow-up with your PCP in the next 2-3 days by calling her office. Return to the emergency department for difficulty breathing, new or worsening symptoms. Tylenol home for fevers and drink plenty of fluids to stay well hydrated. Scripts Omeprazole (Omeprazole) 40 Mg Capsule.dr 40 MG PO DAILY for 30 Days, #30 CAP Prov: AIDEE LOVELACE DO 02/12/20 Ondansetron (Ondansetron Odt) 4 Mg Tab.rapdis 4 MG PO Q6H PRN for NAUSEA/VOMITING-1ST LINE, #20 TAB Prov: AIDEE LOVELACE DO 02/12/20 AIDEE LOVELACE DO Feb 12, 2020 08:52
[2020-02-12 09:01] LABS: HEMATOCRIT 42 % (35-52); HEMOGLOBIN 14.1 G/DL (11.5-16.0); MEAN CORPUSCULAR HEMOGLOBIN 29 PG (25-34); MEAN CORPUSCULAR HGB CONC 34 G/DL (32-36); MEAN CORPUSCULAR VOLUME 85 FL (80-99); MEAN PLATELET VOLUME 10.3 FL (7.4-10.4); PLATELET COUNT 300 10^3/uL (130-400); RED CELL DISTRIBUTION WIDTH 13.1 % (10.0-14.5); WHITE BLOOD COUNT 20.9 10^3/uL (4.3-11.0)
[2020-02-12 09:02] LABS: BASOPHILS # (AUTO) 0.1 10^3/uL (0.0-0.1); BASOPHILS % (AUTO) 0 % (0-10); EOSINOPHILS % (AUTO) 0 % (0-10); LYMPHOCYTES # (AUTO) 0.8 X 10^3 (1.0-4.0); LYMPHOCYTES % (AUTO) 4 % (12-44); MONOCYTES % (AUTO) 5 % (0-12); NEUTROPHILS # (AUTO) 18.9 X 10^3 (1.8-7.8); NEUTROPHILS % (AUTO) 90 % (42-75)
[2020-02-12 09:19] LABS: BAND NEUTROPHILS 10 %; LYMPHOCYTES % (MANUAL) 5 %; MONOCYTES % (MANUAL) 4 %; NEUTROPHILS % (MANUAL) 81 %
[2020-02-12 09:23] LABS: POTASSIUM 3.7 MMOL/L (3.6-5.0); SODIUM 139 MMOL/L (135-145)
[2020-02-12 09:24] LABS: ALANINE AMINOTRANSFERASE 29 U/L (0-55); ALKALINE PHOSPHATASE 75 U/L (40-136); BILIRUBIN,TOTAL 0.8 MG/DL (0.1-1.0); BUN/CREATININE RATIO 13; CARBON DIOXIDE 21 MMOL/L (21-32); CHLORIDE 101 MMOL/L (98-107); CREATININE SERUM 0.69 MG/DL (0.60-1.30); GFR ESTIMATED > 60; GLUCOSE 121 MG/DL (70-105); TOTAL PROTEIN 8.4 GM/DL (6.4-8.2)
[2020-02-12 09:25] LABS: AMYLASE 33 U/L (25-125); LIPASE 11 U/L (8-78)
--- NOTE | 2020-02-12 09:50 | NUR ---
To CT per cart and patient in a surgical mask.
--- NOTE | 2020-02-12 10:05 | NUR ---
Pt returned to room. Re-connected to monitor. IV fluids aprox 200 ml re-connected. Pt instructed to try to maintain RAC not bent.
--- NOTE | 2020-02-12 10:10 | NUR ---
UA sent. Pt back to room per WC. Pt wanted BSC stating tired and weak.
--- NOTE | 2020-02-12 10:10 | NUR ---
Pt temp taken and oral is 37.7 C. Pt reports feeling cool just prior to going to CT and light blanket had been granted. IV fluids running wide open.
[2020-02-12] MEDS ORDERED: IOHEXOL 350 MG/ML 100 ML (OMNIPAQUE 350) VIAL IV ONE (10:15)
[2020-02-12] MEDS ORDERED: CATHETER FLUSH 10 ML SYR IV PRN (10:15)
[2020-02-12] MEDS ORDERED: NS 100 ML (IVPB) BAG IV ONE (10:15)
[2020-02-12] MEDS ORDERED: HOLD METFORMIN - RECEIVED CONTRAST 20 ML VIAL IV SCH (10:15)
[2020-02-12 10:30] LABS: BILIRUBIN,URINE NEGATIVE (NEGATIVE); CLARITY,URINE CLEAR; COLOR,URINE YELLOW; GLUCOSE, URINE (UA) NEGATIVE (NEGATIVE); KETONES,URINE NEGATIVE (NEGATIVE); LEUKOCYTE ESTERASE ,URINE NEGATIVE (NEGATIVE); NITRITE,URINE NEGATIVE (NEGATIVE); PH,URINE >9.0 (5-9); PROTEIN,URINE NEGATIVE (NEGATIVE)
--- NOTE | 2020-02-12 10:30 | NUR ---
Pt becoming emotional and sobbing now and crying for her mother again. Pt demanding water to drink and is still NPO till CT resulted. Pt is reporting nausea better but holding emesis bag.
[2020-02-12 10:31] LABS: BACTERIA,URINE NEGATIVE /HPF; RBC,URINE RARE /HPF; SQUAMOUS EPITHELIAL CELL,UR RARE /HPF; WBC,URINE RARE /HPF
--- NOTE | 2020-02-12 10:32 | Diagnostic Imaging Report ---
PROCEDURE: CT abdomen and pelvis with contrast. TECHNIQUE: Multiple contiguous axial images were obtained through the abdomen and pelvis after administration of intravenous contrast. Auto Exposure Controls were utilized during the CT exam to meet ALARA standards for radiation dose reduction. INDICATION: Upper abdominal pain with nausea and vomiting. No prior studies are available for comparison. The lung bases are clear. The liver demonstrates generalized low density consistent with hepatic steatosis. No discrete liver mass is detected. Gallbladder is unremarkable. No biliary duct dilatation is identified. The pancreas and spleen are unremarkable. No adrenal mass is identified. The kidneys are unremarkable. Aorta is non-aneurysmal. The small and large bowel loops are normal caliber. No obstruction is identified. No free fluid or fluid collection is seen. No free air is identified. Bladder, uterus and ovaries are unremarkable. No abdominal or pelvic lymphadenopathy is seen. Bony structures are unremarkable. IMPRESSION: 1. Hepatic steatosis. 2. No acute feature in the abdomen or pelvis is identified. Dictated by: Dictated on workstation # [id number]
--- NOTE | 2020-02-12 10:50 | NUR ---
Water provided. Pt encouraged to take small sips and be cautious to stop if nauseated. Pt thrashes on bed and sobbing without tears.
--- NOTE | 2020-02-12 10:57 | Diagnostic Imaging Report ---
INDICATION: Leukocytosis. Abdominal pain. COMPARISON: None FINDINGS: Single frontal view of the chest demonstrates normal heart size and pulmonary vascularity. The lungs are well aerated and clear. No large pleural effusion or pneumothorax is seen. The visualized osseous structures show no acute abnormalities. IMPRESSION: 1. No acute cardiopulmonary process. Dictated by: Dictated on workstation # [id number]
[2020-02-12] MEDS ORDERED: ACETAMINOPHEN 500 MG TAB (TYLENOL) PO ONE (11:00)
--- NOTE | 2020-02-12 11:00 | NUR ---
Pt swabbed for strep and flu. Pt up to BSC to void. Pt temp was taken and is 38.0 and pt reports shivering and now and noted CT had a second blanket on patient. Tried to remove layers of blankets and pt yelling at staff nurse "No your not" and wanting another. Add'l blanket denied. had been updated on the shivering and rising temp and these add'l orders rec'd.
--- NOTE | 2020-02-12 11:02 | NUR ---
Pt is using our cordless phone and speaking to her mom in [place] and is sobbing. Pt is overheard giving info not shared with staff that her son goes to his stepmothers and she goes over also and that woman is positive for strep throat but that is the only illness she'd be exposed to. Does not know of a COVID symptom pt.
--- NOTE | 2020-02-12 11:03 | NUR ---
Tylenol 1 GM given p.o. with water for elevated temp.
--- NOTE | 2020-02-12 11:45 | NUR ---
Dr Hernandez into room to talk to patient and discuss all negative findings except for elevation of WBC and low grade temp. Pt was asked to share right now the entire story again of why she came in, hx that preceded this, any travel, and any known COVID exposure acquaintences. Pt states only the son's stepmother with positive strep. Pt is asked now that she appears calmer and not sobbing/emotional/and asking over and over for mother does she feel at any time she was short of breathe and patient stated while boarding EMS to arrival she didn't feel well and breathing faster "made me feel better." Pt does not have appearance of hyperventilation after call plaaced to mother.
[2020-02-12] MEDS ORDERED: ONDA4TAB11 PO (11:53)
[2020-02-12] MEDS ORDERED: OMEP40CA27 PO (11:53)
[2020-02-12 12:04] VITALS: BP 154/84
--- NOTE | 2020-02-12 12:04 | NUR ---
Pt instructions reviewed with pt verbalizing understanding, IV discontinued. Pt was to exit the ED via [facility] but now reporting she has no idea who is coming, nurse explained a staff member got a call 10 min ago a person saying "Aunt" calling to check on her status and no info released. Told patient the "Aunt" was referred to calling this person herself. Pt now reports her phone is and hospital cordless phone will be required. Call to the number found on memory of ER desk and patient spoke with this person that is her "friend" and she told her to come pick her up. Report of approx [address]. Pt reports feeling like laying down and not sure if she could lay down outside. Maintaining pt in ED 5 quarantined from other staff or any visitors and will release patient if this room is needed or otherwise when friend calls that she has arrived.
--- NOTE | 2020-02-12 12:55 | NUR ---
Patient has departed ED 5 via [facility] to friend's car wearing a mask and requested gloves and granted. Departure without incidence.
== END 2020-02-12 12:04 | disposition home or self-care (01) ==
LOC: EDUNIT# 08:25 → ER FS 08:27
DX: K29.70 Gastritis, unspecified, without bleeding (principal); R50.9 Fever, unspecified; D72.829 Elevated white blood cell count, unspecified
CPT/HCPCS: 36415; 71045; 74177; 80053; 81000; 82150; 83690; 84702; 84703; 85007; 85027; 87430; 87804

== ENCOUNTER 2020-12-16 21:26 | Emergency (ER) | payer MEDICAID ==
[~2020-12-16] VITALS: Ht 182.6 cm; Wt 107.7 kg
[~2020-12-16 21:26] MED LIST changes: +OMEP40CA27 PO; +ONDA4TAB11 PO
--- NOTE | 2020-12-16 21:59 | Diagnostic Imaging Report ---
CLINICAL HISTORY: Trauma. Right ankle pain. COMPARISON: 03/08/2019. TECHNIQUE: 3 views of the right ankle. FINDINGS: There is no acute fracture or dislocation of the right ankle. Alignment is anatomic. The imaged joint spaces are preserved. Mild soft tissue edema is present surrounding the right ankle, greatest overlying the medial malleolus. IMPRESSION: No acute fracture or dislocation in the right ankle. Soft tissue edema is noted in the right ankle, greatest overlying the medial malleolus. Dictated by: Dictated on workstation # [id number]
--- NOTE | 2020-12-16 22:29 | ED General ---
General Chief Complaint: Lower Extremity Stated Complaint: FELL,RT ANKLE PAIN Nursing Triage Note: pt states she twisted her ankle 5 days ago and has continued to swell and hurt Nursing Sepsis Screen: No Definite Risk Exam Limitations: No Limitations History of Present Illness Date Seen by Provider: Dec 16, 2020 Time Seen by Provider: 22:25 Initial Comments Patient is a 25-year-old female who presents with right ankle pain/swelling after twisting her ankle 4 days ago. Patient has continued to walk on it despite the pain swelling and bruising. No other injury or complaint. Patient has not sought medical care prior to today's ER visit Timing/Duration: 4-5 Days Severity: Moderate Modifying Factors: improves with Medication, improves with Other Associated Systoms: Other Allergies and Home Medications Allergies Coded Allergies: No Known Drug Allergies (Unverified , 05/29/19) Home Medications Omeprazole 40 Mg Capsule.dr, 40 MG PO DAILY Prescribed by: AIDEE LOVELACE on 02/12/20 1153 Ondansetron 4 Mg Tab.rapdis, 4 MG PO Q6H PRN for NAUSEA/VOMITING-1ST LINE Prescribed by: AIDEE LOVELACE on 02/12/20 1153 Patient Home Medication List Home Medication List Reviewed: Yes Review of Systems Review of Systems Constitutional: see HPI EENTM: see HPI Respiratory: see HPI Cardiovascular: see HPI Gastrointestinal: see HPI Genitourinary: see HPI Musculoskeletal: no symptoms reported Psychiatric/Neurological: See HPI Hematologic/Lymphatic: See HPI Immunological/Allergic: see HPI All Other Systems Reviewed Negative Unless Noted: Yes Past Gpbmwml-Slfqtl-Yaybna Hx Past Med/Social Hx: Reviewed Nursing Past Med/Soc Hx Patient Social History Alcohol Use: Denies Use Type Used: Cigarettes Former Smoker, Quit: Jan 12, 2020 2nd Hand Smoke Exposure: No Recent Infectious Disease Expo: No Recent Hopitalizations: No Immunizations Up To Date Tetanus Booster (TDap): Unknown PED Vaccines UTD: Yes Date of Influenza Vaccine: Aug 16, 2018 Seasonal Allergies Seasonal Allergies: No Past Medical History Surgeries: No Respiratory: No Cardiac: No Neurological: No Genitourinary: No Gastrointestinal: No Musculoskeletal: No Endocrine: No HEENT: No Cancer: No Psychosocial: No Integumentary: No Herpes Blood Disorders: No Adverse Reaction/Blood Tranf: No Family Medical History Congenital heart disease 19 MOTHER Physical Exam Vital Signs Vital Signs - First Documented 12/16/20 21:40 Temp 36.6 Pulse 113 Resp 16 B/P (MAP) 172/85 (114) Pulse Ox 98 O2 Delivery Room Air Capillary Refill : Less Than 3 Seconds Height, Weight, BMI Height: 5'5.00" Weight: 222lbs. 1.0oz. 100.715577df; 32.00 BMI Method:Actual General Appearance: Mild Distress Eyes: Bilateral Eye Normal Inspection, Bilateral Eye PERRL, Bilateral Eye EOMI HEENT: PERRL/EOMI Extremity: Swelling (Right ankle swelling tenderness bruising, no deformity. Limited range of motion secondary to pain), Other Progress/Results/Core Measures Suspected Sepsis Recent Fever Within 48 Hours: No Infection Criteria Present: None New/Unexplained Altered Menta: No Sepsis Screen: No Definite Risk SIRS Temperature: Pulse: 113 Respiratory Rate: 16 Blood Pressure 172 /85 Mean: 114 Results/Orders My Orders Orders - ROHAN ARANGO DO Ankle 3 View Right (12/16/20 21:40) Vital Signs/I&O 12/16/20 21:40 Temp 36.6 Pulse 113 Resp 16 B/P (MAP) 172/85 (114) Pulse Ox 98 O2 Delivery Room Air Capillary Refill : Less Than 3 Seconds Blood Pressure Mean: 114 Departure Impression Primary Impression: Moderate right ankle sprain Disposition: 01 HOME, SELF-CARE Condition: Stable Departure-Patient Inst. Referrals: ANGELA PAREDES MD (PCP/Family) Primary Care Physician Patient Instructions: Ankle Sprain Add. Discharge Instructions: Patient with ankle sprain without fracture evident on x-ray. Recommend rest, splint elevation, compression and NSAIDs. All discharge instructions reviewed with patient and/or family. Voiced understanding. ROHAN ARANGO DO Dec 16, 2020 22:29
[2020-12-16] MEDS ORDERED: ACETAMINOPHEN 500 MG TAB (TYLENOL) PO ONE (22:45)
[2020-12-16 22:56] VITALS: BP 172/85
== END 2020-12-16 22:56 | disposition home or self-care (01) ==
LOC: EDUNIT# 21:26 → ER FS 21:29
DX: S93.401A Sprain of unspecified ligament of right ankle, initial encounter (principal); Z87.891 Personal history of nicotine dependence; X50.1XXA Overexertion from prolonged static or awkward postures, initial encounter
CPT/HCPCS: 73610; 99283; L4350

== ENCOUNTER 2021-01-03 07:11 | Emergency (ER) | payer MEDICAID ==
--- NOTE | 2021-01-03 09:44 | ED General ---
General Chief Complaint: OB < 20 WEEKS Stated Complaint: VAGINAL BLEEDING DURING PREG Nursing Triage Note: Had positive test yesterday. This morning had some pink/red vaginal bleeding when wiping. Is having some cramping rated at 6/10. Is unsure how far along she is. Thinks her LMP ended 12/02. Nursing Sepsis Screen: No Definite Risk Source of Information: Patient Exam Limitations: No Limitations History of Present Illness Date Seen by Provider: Jan 03, 2021 Time Seen by Provider: 08:00 Initial Comments Patient is a 24-year-old G3, P2, estimated 3-week gestation by date female who presents with light pink vaginal bleeding upon wiping this morning. Patient reports mild pelvic cramping. Denies other symptoms or complaints. Patient had 2+ home test prior to ED arrival. Patient's last menstrual period was approximately 30 days ago Timing/Duration: 1-3 Hours Severity: Mild Modifying Factors: improves with Other Associated Systoms: Other Allergies and Home Medications Allergies Coded Allergies: No Known Drug Allergies (Unverified , 05/29/19) Home Medications Omeprazole 40 Mg Capsule.dr, 40 MG PO DAILY Prescribed by: AIDEE LOVELACE on 02/12/20 1153 Ondansetron 4 Mg Tab.rapdis, 4 MG PO Q6H PRN for NAUSEA/VOMITING-1ST LINE Prescribed by: AIDEE LOVELACE on 02/12/20 1153 Patient Home Medication List Home Medication List Reviewed: Yes Review of Systems Review of Systems Constitutional: see HPI EENTM: see HPI Respiratory: see HPI Cardiovascular: see HPI Gastrointestinal: see HPI Genitourinary: see HPI Musculoskeletal: see HPI Skin: see HPI Psychiatric/Neurological: See HPI Hematologic/Lymphatic: See HPI Immunological/Allergic: see HPI All Other Systems Reviewed Negative Unless Noted: Yes Past Nfsrugn-Afmwci-Pdeiwh Hx Past Med/Social Hx: Reviewed Nursing Past Med/Soc Hx Patient Social History Alcohol Use: Denies Use Smoking Status: Former Smoker Type Used: Cigarettes Former Smoker, Quit: Jan 12, 2020 2nd Hand Smoke Exposure: No Recent Infectious Disease Expo: No Recent Hopitalizations: No Immunizations Up To Date Tetanus Booster (TDap): Unknown PED Vaccines UTD: Yes Date of Influenza Vaccine: Aug 16, 2018 Seasonal Allergies Seasonal Allergies: No Past Medical History Surgeries: No Respiratory: No Cardiac: No Neurological: No Genitourinary: No Gastrointestinal: No Musculoskeletal: No Endocrine: No HEENT: No Cancer: No Psychosocial: No Integumentary: No Herpes Blood Disorders: No Adverse Reaction/Blood Tranf: No Family Medical History Congenital heart disease 19 MOTHER Physical Exam Vital Signs Vital Signs - First Documented 01/03/21 07:15 Temp 37.2 Pulse 108 Resp 16 B/P (MAP) 140/99 (113) Pulse Ox 99 Capillary Refill : Less Than 3 Seconds Height, Weight, BMI Height: 5'5.00" Weight: 222lbs. 1.0oz. [id number]; 32.00 BMI Method:Actual General Appearance: Other Eyes: Bilateral Eye Normal Inspection, Bilateral Eye PERRL, Bilateral Eye EOMI HEENT: PERRL/EOMI, Pharynx Normal Neck: Non Tender, Supple Respiratory: Lungs Clear Cardiovascular: Regular Rate, Rhythm Genital/Rectal: Normal Genital Exam, Normal Vaginal Exam, Other (No vaginal discharge or bleeding. No tenderness on exam.) Neurologic/Psychiatric: Alert, Oriented x3 Focused Exam Sepsis Stage: Ruled Out Progress/Results/Core Measures Suspected Sepsis Recent Fever Within 48 Hours: No Infection Criteria Present: None New/Unexplained Altered Menta: No Sepsis Screen: No Definite Risk SIRS Temperature: Pulse: 108 Respiratory Rate: 16 Blood Pressure 140 /99 Mean: 113 Results/Orders Lab Results Laboratory Tests Test 01/03/21 08:24 01/03/21 08:31 Range/Units Human Chorionic Gonadotropin, Quant 1226 H <5 MIU/ML Micro Results Microbiology 01/03/21 Wet Prep - Final, Complete My Orders Orders - ROHAN ARANGO DO Urine Bedside (01/03/21 07:37) Chlam Dna Probe (01/03/21 07:50) Neisseria Gonorrhea Swab (01/03/21 07:50) Wet Prep (01/03/21 07:50) Hcg,Quantitative (01/03/21 08:09) Abo Rh Type (01/03/21 09:31) Vital Signs/I&O 01/03/21 07:15 Temp 37.2 Pulse 108 Resp 16 B/P (MAP) 140/99 (113) Pulse Ox 99 Capillary Refill : Less Than 3 Seconds Blood Pressure Mean: 113 Departure Communication (Admissions) Patient anxious but no active bleeding on exam or tenderness on my evaluation. hCG quant is below 2400. Ultrasound is not available at this facility based upon predetermined ultrasound call criteria. She is instructed to follow-up with her [employer] in 2 days for repeat quant testing. Patient believes she is Rh+. Rh type is pending. Return precautions reviewed. Patient verbalizes understanding agreement discharge instructions prior to departure. Impression Primary Impression: Vaginal bleeding affecting early Disposition: HOME, SELF-CARE Condition: Stable Departure-Patient Inst. Decision time for Depature: 09:54 Referrals: ANGELA PAREDES MD (PCP/Family) Primary Care Physician Patient Instructions: Bleeding In Early Add. Discharge Instructions: You were evaluated in the emergency department for vaginal bleeding in early . Bleeding could be related to a normal healthy , miscarriage or possible ectopic . Ectopic is outside of the uterus and is a potentially life-threatening condition. It is important that you have repeat hormone testing performed in 2 days and follow-up with your [employer] for results. In the meantime if you develop new or worsening symptoms, return to the emergency department immediately. All discharge instructions reviewed with patient and/or family. Voiced understanding. ROHAN ARANGO DO Jan 03, 2021 09:43
[2021-01-03 10:00] VITALS: BP 125/84
== END 2021-01-03 10:00 | disposition home or self-care (01) ==
LOC: EDUNIT# 07:11 → ER FS 07:13
DX: O20.9 Hemorrhage in early pregnancy, unspecified (principal); Z3A.01 Less than 8 weeks gestation of pregnancy; Z87.891 Personal history of nicotine dependence; Z82.49 Family history of ischemic heart disease and other diseases of the circulatory system
CPT/HCPCS: 36415; 84702; 84703; 86900; 86901; 87210; 87491; 87591; 99284

== ENCOUNTER 2021-04-09 15:35 | Emergency (ER) | payer MEDICAID ==
[~2021-04-09] VITALS: Ht 162 cm; Wt 105.0 kg
[~2021-04-09 15:35] MED LIST changes: +ACYC-108 PO; -ACYC200C PO
[2021-04-09 15:47] VITALS: BP 141/87
--- NOTE | 2021-04-09 15:51 | ED GU-Female ---
General Chief Complaint: OB < 20 WEEKS Stated Complaint: ABD/LEG CRAMPING History of Present Illness Date Seen by Provider: April 09, 2021 Time Seen by Provider: 15:43 Initial Comments 25-year-old G3, P2 at 19 weeks presents with abdominal cramping and concerned that her baby has stopped moving. Denies any vaginal bleeding, loss of fluid or recent illness. Denies pain with urination or blood in her urine. Last saw her OB 3 weeks ago and is scheduled to see her OB in a little over a week. Allergies and Home Medications Allergies Coded Allergies: No Known Drug Allergies (Unverified , 05/29/19) Home Medications Omeprazole 40 Mg Capsule.dr, 40 MG PO DAILY Prescribed by: AIDEE LOVELACE on 02/12/20 1153 Ondansetron 4 Mg Tab.rapdis, 4 MG PO Q6H PRN for NAUSEA/VOMITING-1ST LINE Prescribed by: AIDEE LOVELACE on 02/12/20 1153 Patient Home Medication List Home Medication List Reviewed: Yes Review of Systems Review of Systems Constitutional: see HPI; No fever, No malaise, No weakness EENTM: no symptoms reported Respiratory: no symptoms reported Cardiovascular: no symptoms reported Gastrointestinal: abdominal pain (intermittent cramping. not now); No constipation, No diarrhea, No nausea, No vomiting Genitourinary: no symptoms reported; denies dysuria, denies frequency, denies flank pain, denies hematuria Musculoskeletal: No back pain, No joint pain Past Dbqamji-Ibyqzi-Epxiwd Hx Past Med/Social Hx: Reviewed Nursing Past Med/Soc Hx Patient Social History Type Used: Cigarettes Former Smoker, Quit: Jan 12, 2020 2nd Hand Smoke Exposure: No Recent Hopitalizations: No Immunizations Up To Date Tetanus Booster (TDap): Unknown PED Vaccines UTD: Yes Date of Influenza Vaccine: Aug 16, 2018 Seasonal Allergies Seasonal Allergies: No Past Medical History Surgeries: No Respiratory: No Cardiac: No Neurological: No Genitourinary: No Gastrointestinal: No Musculoskeletal: No Endocrine: No HEENT: No Cancer: No Psychosocial: No Integumentary: No Herpes Blood Disorders: No Adverse Reaction/Blood Tranf: No Family Medical History Congenital heart disease 19 MOTHER Physical Exam Vital Signs Capillary Refill : Height, Weight, BMI Height: 5'5.00" Weight: 222lbs. 1.0oz. 100.548017ev; 32.00 BMI Method:Actual General Appearance: WD/WN, no apparent distress Cardiovascular: regular rate, rhythm, no edema Respiratory: chest non-tender, lungs clear Gastrointestinal: normal bowel sounds, non tender, soft Back: normal inspection, no CVA tenderness Neurologic/Psychiatric: alert, normal mood/affect, oriented x 3 Skin: normal color, warm/dry Progress/Results/Core Measures Suspected Sepsis SIRS Temperature: Pulse: Respiratory Rate: Blood Pressure / Mean: Results/Orders Vital Signs/I&O Capillary Refill : Progress Note : Progress Note Well-appearing, normal vitals. Reassuring heart tones 120s. Departure Impression Primary Impression: Abdominal pain affecting Disposition: HOME, SELF-CARE Condition: Stable Departure-Patient Inst. Decision time for Depature: 15:51 Referrals: AMOR MEZA MD (PCP/Family) Primary Care Physician Add. Discharge Instructions: Call Dr Meza or go to a Hospital with labor and delivery services available for any further questions or problems related to your All discharge instructions reviewed with patient and/or family. Voiced understanding. ANNA CASTILLO DO April 09, 2021 15:51
[2021-04-09 15:53] LABS: BACTERIA,URINE FEW /HPF; BILIRUBIN,URINE NEGATIVE (NEGATIVE); CLARITY,URINE CLOUDY; COLOR,URINE YELLOW; GLUCOSE, URINE (UA) NEGATIVE (NEGATIVE); KETONES,URINE NEGATIVE (NEGATIVE); LEUKOCYTE ESTERASE ,URINE NEGATIVE (NEGATIVE); NITRITE,URINE NEGATIVE (NEGATIVE); PROTEIN,URINE NEGATIVE (NEGATIVE); SQUAMOUS EPITHELIAL CELL,UR >50 /HPF
== END 2021-04-09 16:03 | disposition home or self-care (01) ==
LOC: EDUNIT# 15:35 → ER FS 15:36
DX: O26.892 Other specified pregnancy related conditions, second trimester (principal); R10.9 Unspecified abdominal pain; Z87.891 Personal history of nicotine dependence; Z3A.19 19 weeks gestation of pregnancy
CPT/HCPCS: 81000

== ENCOUNTER 2021-05-09 09:33 | Emergency (ER) | payer MEDICAID ==
[~2021-05-09] VITALS: Ht 165.1 cm; Wt 99.8 kg
[~2021-05-09 09:33] MED LIST changes: -OMEP40CA27 PO; +OMEP40CA6 PO
--- NOTE | 2021-05-09 09:54 | ED GU-Female ---
General Chief Complaint: Abdominal/GI Problems Stated Complaint: NAUSEA | VOMITING History of Present Illness Date Seen by Provider: May 09, 2021 Time Seen by Provider: 09:49 Initial Comments 25-year-old female presents with a panic attack as well as nausea. She happens to be in her second trimester of , followed by Dr. Meza. This morning called 911 due to excessive nausea and states that the Zofran is not helping. Seen her OB as well for panic attacks which been worse since being . She was advised to take Benadryl, but states is not helping and it causes her to have "cramps". Denies recent illness, fever chills, chest pain or shortness of air.Denies abdominal pain, vaginal bleeding or dysuria Allergies and Home Medications Allergies Coded Allergies: No Known Drug Allergies (Unverified , 05/29/19) Home Medications Omeprazole 40 Mg Capsule.dr, 40 MG PO DAILY Prescribed by: AIDEE LOVELACE on 02/12/20 1153 Ondansetron 4 Mg Tab.rapdis, 4 MG PO Q6H PRN for NAUSEA/VOMITING-1ST LINE Prescribed by: AIDEE LOVELACE on 02/12/20 1153 Promethazine HCl 12.5 Mg Supp.rect, 12.5 MG RC DAILY PRN PRN for NAUSEA/VOMITING Prescribed by: ANNA CASTILLO on 05/09/21 1105 Patient Home Medication List Home Medication List Reviewed: Yes Review of Systems Review of Systems Constitutional: see HPI; No dizziness, No fever; malaise; No weakness EENTM: no symptoms reported Respiratory: no symptoms reported Cardiovascular: no symptoms reported Gastrointestinal: No abdominal pain; nausea, vomiting Musculoskeletal: No back pain, No joint pain Skin: No change in color, No rash Psychiatric/Neurological: Anxiety, Emotional Problems; Denies Numbness, Denies Paresthesia, Denies Seizure Past Kelqxjp-Qytzdm-Tisewo Hx Past Med/Social Hx: Reviewed Nursing Past Med/Soc Hx Patient Social History Type Used: Cigarettes Former Smoker, Quit: Jan 12, 2020 2nd Hand Smoke Exposure: No Recent Hopitalizations: No Immunizations Up To Date Tetanus Booster (TDap): Unknown PED Vaccines UTD: Yes Date of Influenza Vaccine: Aug 16, 2018 Seasonal Allergies Seasonal Allergies: No Past Medical History Surgeries: No Respiratory: No Cardiac: No Neurological: No Genitourinary: No Gastrointestinal: No Musculoskeletal: No Endocrine: No HEENT: No Cancer: No Psychosocial: No Integumentary: No Herpes Blood Disorders: No Adverse Reaction/Blood Tranf: No Family Medical History Congenital heart disease 19 MOTHER Physical Exam Vital Signs Vital Signs - First Documented 05/09/21 10:11 Temp 36.4 Pulse 118 Resp 20 B/P (MAP) 118/79 (92) Pulse Ox 95 O2 Delivery Room Air Capillary Refill : Height, Weight, BMI Height: 5'5.00" Weight: 222lbs. 1.0oz. 100.285410ex; 40.00 BMI Method:Actual General Appearance: WD/WN, no apparent distress Cardiovascular: regular rate, rhythm, no edema, no JVD Respiratory: chest non-tender, lungs clear, normal breath sounds Gastrointestinal: normal bowel sounds, non tender, soft Back: normal inspection, no CVA tenderness Extremities: normal range of motion, non-tender, no pedal edema Neurologic/Psychiatric: no motor/sensory deficits, alert, oriented x 3 (BUT very anxious) Progress/Results/Core Measures Suspected Sepsis SIRS Temperature: Pulse: Respiratory Rate: Laboratory Tests 05/09/21 10:00: White Blood Count 10.2 Blood Pressure / Mean: Laboratory Tests 05/09/21 10:00: Creatinine 0.46L, Platelet Count 280, Total Bilirubin 0.2 Results/Orders Lab Results Laboratory Tests Test 05/09/21 10:00 05/09/21 10:30 Range/Units White Blood Count 10.2 4.3-11.0 10^3/uL Red Blood Count 4.11 L 4.35-5.85 10^6/uL Hemoglobin 12.2 11.5-16.0 G/DL Hematocrit 36 35-52 % Mean Corpuscular Volume 87 80-99 FL Mean Corpuscular Hemoglobin 30 25-34 PG Mean Corpuscular Hemoglobin Concent 34 32-36 G/DL Red Cell Distribution Width 13.0 10.0-14.5 % Platelet Count 280 130-400 10^3/uL Mean Platelet Volume 10.2 7.4-10.4 FL Immature Granulocyte % (Auto) 1 % Neutrophils (%) (Auto) 81 H 42-75 % Lymphocytes (%) (Auto) 13 12-44 % Monocytes (%) (Auto) 4 0-12 % Eosinophils (%) (Auto) 1 0-10 % Basophils (%) (Auto) 0 0-10 % Neutrophils # (Auto) 8.2 H 1.8-7.8 X 10^3 Lymphocytes # (Auto) 1.4 1.0-4.0 X 10^3 Monocytes # (Auto) 0.4 0.0-1.0 X 10^3 Eosinophils # (Auto) 0.1 0.0-0.3 10^3/uL Basophils # (Auto) 0.0 0.0-0.1 10^3/uL Immature Granulocyte # (Auto) 0.1 0.0-0.1 10^3/uL Sodium Level 139 135-145 MMOL/L Potassium Level 3.4 L 3.6-5.0 MMOL/L Chloride Level 105 98-107 MMOL/L Carbon Dioxide Level 22 21-32 MMOL/L Anion Gap 12 5-14 MMOL/L Blood Urea Nitrogen 5 L 7-18 MG/DL Creatinine 0.46 L 0.60-1.30 MG/DL Estimat Glomerular Filtration Rate > 60 BUN/Creatinine Ratio 11 Glucose Level 101 70-105 MG/DL Calcium Level 9.6 8.5-10.1 MG/DL Corrected Calcium 9.6 8.5-10.1 MG/DL Total Bilirubin 0.2 0.1-1.0 MG/DL Aspartate Amino Transf (AST/SGOT) 10 5-34 U/L Alanine Aminotransferase (ALT/SGPT) 10 0-55 U/L Alkaline Phosphatase 69 40-136 U/L Total Protein 7.1 6.4-8.2 GM/DL Albumin 4.0 3.2-4.5 GM/DL Urine Color DARK YELLOW Urine Clarity CLOUDY Urine pH 7.0 5-9 Urine Specific [place] 1.025 H 1.016-1.022 Urine Protein TRACE H NEGATIVE Urine Glucose (UA) NEGATIVE NEGATIVE Urine Ketones NEGATIVE NEGATIVE Urine Nitrite NEGATIVE NEGATIVE Urine Bilirubin 1+ H NEGATIVE Urine Urobilinogen 2.0 < = 1.0 MG/DL Urine Leukocyte Esterase TRACE H NEGATIVE Urine RBC (Auto) NEGATIVE NEGATIVE Urine RBC 2-5 H /HPF Urine WBC 5-10 H /HPF Urine Squamous Epithelial Cells 10-25 H /HPF Urine Crystals NONE /LPF Urine Leucine Crystals /LPF Urine Bacteria MODERATE H /HPF Urine Casts NONE /LPF Urine Mucus LARGE H /LPF Urine Culture Indicated YES My Orders Orders - ROVENSTINE,ANNA L DO Ed Iv/Invasive Line Start (05/09/21 09:49) Cbc With Automated Diff (05/09/21 09:49) Comprehensive Metabolic Panel (05/09/21 09:49) Urinalysis (05/09/21 09:49) Ns Iv 1000 Ml (Sodium Chloride 0.9%) (05/09/21 10:00) Promethazine Injection (Phenergan Injec (05/09/21 10:00) Urine Culture (05/09/21 10:30) Vital Signs/I&O 05/09/21 10:11 Temp 36.4 Pulse 118 Resp 20 B/P (MAP) 118/79 (92) Pulse Ox 95 O2 Delivery Room Air Capillary Refill : Progress Note : Progress Note Patient improved without any medication. Given IVF's only. Calmed herself down. NO vomiting in ER. Asked for a different Rx, given Rx for phenergan supp ository (12.5mg). Departure Impression Primary Impression: Nausea and vomiting Qualified Codes: R11.2 - Nausea with vomiting, unspecified Additional Impressions: Anxiety Second trimester Disposition: HOME, SELF-CARE Condition: Improved Departure-Patient Inst. Decision time for Depature: 11:00 Referrals: AMOR MEZA MD (PCP/Family) Primary Care Physician Patient Instructions: Nausea and Vomiting of (DC) Add. Discharge Instructions: Follow up with Dr Meza this week regarding your Panic attacks and continued nausea. All discharge instructions reviewed with patient and/or family. Voiced understanding. Scripts Promethazine HCl (Promethazine Suppository) 12.5 Mg Supp.rect 12.5 MG RC DAILY PRN PRN for NAUSEA/VOMITING, #10 SUPP.RECT Prov: ANNA CASTILLO DO 05/09/21 ANNA CASTILLO DO May 09, 2021 09:54
[2021-05-09] MEDS ORDERED: NS IV 1000 ML 1,000 ML IV SCH (10:00)
[2021-05-09] MEDS ORDERED: PROMETHAZINE INJ 25 MG/ML (PHENERGAN) AMP IM/IV ONE (10:00)
[2021-05-09 10:07] LABS: BASOPHILS % (AUTO) 0 % (0-10); EOSINOPHILS # (AUTO) 0.1 10^3/uL (0.0-0.3); EOSINOPHILS % (AUTO) 1 % (0-10); HEMATOCRIT 36 % (35-52); HEMOGLOBIN 12.2 G/DL (11.5-16.0); LYMPHOCYTES # (AUTO) 1.4 X 10^3 (1.0-4.0); LYMPHOCYTES % (AUTO) 13 % (12-44); MEAN CORPUSCULAR HEMOGLOBIN 30 PG (25-34); MEAN CORPUSCULAR HGB CONC 34 G/DL (32-36); MEAN CORPUSCULAR VOLUME 87 FL (80-99); MEAN PLATELET VOLUME 10.2 FL (7.4-10.4); MONOCYTES # (AUTO) 0.4 X 10^3 (0.0-1.0); MONOCYTES % (AUTO) 4 % (0-12); NEUTROPHILS # (AUTO) 8.2 X 10^3 (1.8-7.8); NEUTROPHILS % (AUTO) 81 % (42-75); PLATELET COUNT 280 10^3/uL (130-400); WHITE BLOOD COUNT 10.2 10^3/uL (4.3-11.0)
[2021-05-09 10:30] LABS: CARBON DIOXIDE 22 MMOL/L (21-32)
[2021-05-09 10:31] LABS: ALANINE AMINOTRANSFERASE 10 U/L (0-55); ALKALINE PHOSPHATASE 69 U/L (40-136); BILIRUBIN,TOTAL 0.2 MG/DL (0.1-1.0); BUN/CREATININE RATIO 11; CALCIUM 9.6 MG/DL (8.5-10.1); CREATININE SERUM 0.46 MG/DL (0.60-1.30); GFR ESTIMATED > 60; GLUCOSE 101 MG/DL (70-105); TOTAL PROTEIN 7.1 GM/DL (6.4-8.2)
[2021-05-09 10:40] LABS: BILIRUBIN,URINE 1+ (NEGATIVE); CLARITY,URINE CLOUDY; COLOR,URINE DARK YELLOW; GLUCOSE, URINE (UA) NEGATIVE (NEGATIVE); KETONES,URINE NEGATIVE (NEGATIVE); LEUKOCYTE ESTERASE ,URINE TRACE (NEGATIVE); NITRITE,URINE NEGATIVE (NEGATIVE); PROTEIN,URINE TRACE (NEGATIVE)
[2021-05-09 10:41] LABS: BACTERIA,URINE MODERATE /HPF
[2021-05-09 10:58] LABS: CHLORIDE 105 MMOL/L (98-107); POTASSIUM 3.4 MMOL/L (3.6-5.0); SODIUM 139 MMOL/L (135-145)
[2021-05-09] MEDS ORDERED: PROM12.566 RC (11:05)
[2021-05-09 11:15] VITALS: BP 105/65
== END 2021-05-09 11:33 | disposition home or self-care (01) ==
LOC: EDUNIT# 09:33 → ER FS 09:43
DX: O21.0 Mild hyperemesis gravidarum (principal); F41.9 Anxiety disorder, unspecified; Z3A.00 Weeks of gestation of pregnancy not specified; Z87.891 Personal history of nicotine dependence
CPT/HCPCS: 36415; 80053; 81000; 85025; 87077; 87088

== ENCOUNTER 2021-09-01 15:15 | Inpatient (IN) | payer MEDICAID ==
[~2021-09-01] VITALS: Ht 165.1 cm; Wt 106.7 kg
[~2021-09-01 15:15] MED LIST changes: +PROM12.566 RC
[2021-09-01] MEDS ORDERED: MINERAL OIL CONCENTRATE 99.9% 15 ML UDC TOP PRN (19:45)
[2021-09-01] MEDS ORDERED: ZOLPIDEM 5 MG (AMBIEN) TAB PO ONE (19:45)
[2021-09-01] MEDS ORDERED: LACTATED RINGERS 1,000 ML IV SCH (19:45)
[2021-09-01 20:15] VITALS: BP 123/85
[2021-09-01 20:36] LABS: BASOPHILS % (AUTO) 0 % (0-10); EOSINOPHILS # (AUTO) 0.2 10^3/uL (0.0-0.3); EOSINOPHILS % (AUTO) 2 % (0-10); HEMATOCRIT 35 % (35-52); HEMOGLOBIN 11.3 g/dL (11.5-16.0); LYMPHOCYTES # (AUTO) 2.1 10^3/uL (1.0-4.0); LYMPHOCYTES % (AUTO) 20 % (12-44); MEAN CORPUSCULAR HEMOGLOBIN 27 pg (25-34); MEAN CORPUSCULAR HGB CONC 32 g/dL (32-36); MEAN CORPUSCULAR VOLUME 85 fL (80-99); MEAN PLATELET VOLUME 10.3 fL (9.0-12.2); MONOCYTES # (AUTO) 0.8 10^3/uL (0.0-1.0); MONOCYTES % (AUTO) 8 % (0-12); NEUTROPHILS % (AUTO) 68 % (42-75); PLATELET COUNT 268 10^3/uL (130-400); WHITE BLOOD COUNT 10.2 10^3/uL (4.3-11.0)
[2021-09-01] MEDS ORDERED: MULT-228 PO (20:38)
[2021-09-01] MEDS: D5 LR IV SOLUTION 1,000 ML IV SCH (20:51)
[2021-09-01] MEDS ORDERED: ZOLPIDEM 5 MG (AMBIEN) TAB ONE (20:56)
[2021-09-01 21:00] VITALS: BP 123/85
[2021-09-01 22:00] VITALS: BP 125/77
[2021-09-01] MEDS ORDERED: CATHETER FLUSH 10 ML SYR IV SCH (22:00)
[2021-09-01 23:00] VITALS: BP 136/95
[2021-09-01] MEDS ORDERED: BUTORPHANOL INJ 2 MG/ML (STADOL) VIAL ONE (23:40)
[2021-09-01] MEDS ORDERED: BUTORPHANOL INJ 2 MG/ML (STADOL) VIAL IV ONE (23:45)
[2021-09-02] VITALS (62 sets, daily range): BP systolic 96–164; BP diastolic 54–107
[2021-09-02 00:10] LABS: BILIRUBIN,URINE NEGATIVE (NEGATIVE); GLUCOSE, URINE (UA) 1+ (NEGATIVE); KETONES,URINE NEGATIVE (NEGATIVE); LEUKOCYTE ESTERASE ,URINE NEGATIVE (NEGATIVE); NITRITE,URINE NEGATIVE (NEGATIVE); PROTEIN,URINE NEGATIVE (NEGATIVE)
[2021-09-02 00:11] LABS: BACTERIA,URINE MODERATE /HPF; CALCIUM OXALATE CRYSTALS,UR FEW /LPF; CLARITY,URINE SL CLOUDY; COLOR,URINE YELLOW
[2021-09-02] MEDS ORDERED: BUTORPHANOL INJ 2 MG/ML (STADOL) VIAL ONE (02:41)
[2021-09-02] MEDS ORDERED: BUTORPHANOL INJ 2 MG/ML (STADOL) VIAL IV ONE (02:45)
[2021-09-02] MEDS: D5 LR IV SOLUTION 1,000 ML IV SCH ×2 (04:50→12:43)
[2021-09-02] MEDS ORDERED: fentaNYL 2 mcg/ml BUPIVA 0.125 100 ML ONE ×2 (05:05→11:41)
[2021-09-02] MEDS ORDERED: diphenhydrAMINE 50 MG/ML INJ (BENADRYL) IV PRN (06:00)
[2021-09-02] MEDS ORDERED: NALOXONE 0.4 MG/ML 1 ML (NARCAN) VIAL IV PRN ×2 (06:00)
[2021-09-02] MEDS ORDERED: LACTATED RINGERS 1,000 ML IV SCH (06:00)
[2021-09-02] MEDS ORDERED: METOCLOPRAMIDE INJ 10 MG/2 ML (REGLAN) IV PRN (06:00)
[2021-09-02] MEDS: EPIDURAL (fentaNYL 2 MCG/ML BUPIVA 0.125%)100 ML BAG EPI SCH ×2 (06:48→11:42)
[2021-09-02] MEDS: ONDANSETRON 4 MG/2 ML (SDV) Z0FRAN IV PRN ×2 (07:01→13:49)
[2021-09-02] MEDS: OXYTOCIN PRE-MIX DRIP 500 ML IV SCH ×2 (08:00→15:19)
--- NOTE | 2021-09-02 15:13 | History & Physical-OB ---
OB - Chief Complaint & HPI Date/Time Date of Admission: Date of Admission: Sep 01, 2021 at 19:10 Date seen by a Provider: Sep 02, 2021 Time Seen by a Provider: 14:20 Chief Complaint/History OB-Reason for Admission/Chief: Induction of Labor Hx : 3 Hx Para: 2 Expected Date of Delivery: Sep 03, 2021 Gestational Age in Weeks: 39 Gestational Age in Days: 5 Allergies and Home Medications Allergies Coded Allergies: No Known Drug Allergies (Unverified , 05/29/19) Patient Home Medication List Home Medication List Reviewed: Yes Multivitamin (Flintstones) 1 Each Tab.chew, 1 EACH PO DAILY, (Reported) Entered as Reported by: LEISA DUNN on 09/01/212037 Last Action: New Order Discontinued Medications Omeprazole (Omeprazole) 40 Mg Capsule.dr, 40 MG PO DAILY Discontinued Reason: No Longer Taking Prescribed by: AIDEE LOVELACE on 02/12/20 1153 Last Action: Discontinued Ondansetron (Ondansetron Odt) 4 Mg Tab.rapdis, 4 MG PO Q6H PRN for NAUSEA/VOMITING-1ST LINE Discontinued Reason: No Longer Taking Prescribed by: AIDEE LOVELACE on 02/12/20 1153 Last Action: Discontinued Promethazine HCl (Promethazine Suppository) 12.5 Mg Supp.rect, 12.5 MG RC DAILY PRN PRN for NAUSEA/VOMITING Discontinued Reason: No Longer Taking Prescribed by: ANNA CASTILLO on 05/09/21 1105 Last Action: Discontinued OB - History Hx of Present Care: Yes Ultrasounds: Normal mid trimester US Obstetrical Complications: None Medical Complications: None Information Induced Hypertension: No Maternal Gestational Diabetes: No Hemorrhage: No Obstetrical History Hx : 3 Hx Para: 2 Number of Living Children: 2 Delivery History Adverse Rxn to Tranfusion: No Patient Past Medical History N/A Social History/Family History Alcohol Use: Denies Use 2nd Hand Smoke Exposure: No Immunizations Hepatitis B: Yes Tetanus Booster (TDap): Unknown Date of Influenza Vaccine: Aug 18, 2021 Rubella: immune RPR/VDRL: Negative GBS Status: Negative HBsAG: Negative OB - Admission Exam Physical Exam Vitals: Vital Signs 09/02/21 09/02/21 12:45 14:15 Temp 35.8 Pulse 91 Resp 18 B/P (MAP) 114/64 (81) Pulse Ox 100 O2 Delivery Room Air HEENT: NCAT Heart: Rhythm Normal Lungs: Clear Abdomen: Gravid Cervical Dilatation: 3cm Effacement: 75% Station: -1 Membranes: Ruptured Amniotic Fluid: Clear Heart Rate: 140's Accelerations: Accelerations Present Decelerations: No Decelerations Short Term Variability: Present Contractions on Admission: 6-10 Minutes Apart Intensity: Moderate Brownlee Scoring Tool (Modified) Dilation (cm): 1-2cm (1) Effacement (%): 51-79% (2) Descent/Station: -1,0 (2) Cervix Consistency: Medium(1) Cervix Position: Middle/Mid-Position (1) Add 1 point for: Each previous vaginal delivery (1) Brownlee Score: 9 Labs Laboratory Tests Test 09/01/21 19:20 09/01/21 20:00 Range/Units Urine Color YELLOW Urine Clarity SL CLOUDY Urine pH 6.0 5-9 Urine Specific [place] 1.025 H 1.016-1.022 Urine Protein NEGATIVE NEGATIVE Urine Glucose (UA) 1+ H NEGATIVE Urine Ketones NEGATIVE NEGATIVE Urine Nitrite NEGATIVE NEGATIVE Urine Bilirubin NEGATIVE NEGATIVE Urine Urobilinogen 1.0 < = 1.0 MG/DL Urine Leukocyte Esterase NEGATIVE NEGATIVE Urine RBC (Auto) NEGATIVE NEGATIVE Urine RBC NONE /HPF Urine WBC 2-5 /HPF Urine Squamous Epithelial Cells 10-25 H /HPF Urine Crystals PRESENT H /LPF Urine Calcium Oxalate Crystals FEW H /LPF Urine Bacteria MODERATE H /HPF Urine Casts NONE /LPF Urine Mucus SMALL H /LPF Urine Culture Indicated YES White Blood Count 10.2 4.3-11.0 10^3/uL Red Blood Count 4.16 3.80-5.11 10^6/uL Hemoglobin 11.3 L 11.5-16.0 g/dL Hematocrit 35 35-52 % Mean Corpuscular Volume 85 80-99 fL Mean Corpuscular Hemoglobin 27 25-34 pg Mean Corpuscular Hemoglobin Concent 32 32-36 g/dL Red Cell Distribution Width 14.6 H 10.0-14.5 % Platelet Count 268 130-400 10^3/uL Mean Platelet Volume 10.3 9.0-12.2 fL Immature Granulocyte % (Auto) 1 % Neutrophils (%) (Auto) 68 42-75 % Lymphocytes (%) (Auto) 20 12-44 % Monocytes (%) (Auto) 8 0-12 % Eosinophils (%) (Auto) 2 0-10 % Basophils (%) (Auto) 0 0-10 % Neutrophils # (Auto) 7.0 1.8-7.8 10^3/uL Lymphocytes # (Auto) 2.1 1.0-4.0 10^3/uL Monocytes # (Auto) 0.8 0.0-1.0 10^3/uL Eosinophils # (Auto) 0.2 0.0-0.3 10^3/uL Basophils # (Auto) 0.0 0.0-0.1 10^3/uL Immature Granulocyte # (Auto) 0.1 0.0-0.1 10^3/uL OB - Assessment/Plan/Diagnosis Assessment Assessment: induction of labor Admission Dx Third Trimester 39 week gestation Admission Status: Inpatient Order (span 2 midnights) Reason for Inpatient Admission: Labor Plan Other Plan 25 yo @ 39 wga here for elective IOL Plan - Cytotec/Pitocin Protocol - GBS neg AMOR INFANTE MD Sep 02, 2021 15:13
--- NOTE | 2021-09-02 15:15 | OB Labor & Delivery Record ---
Vag Delivery Note Vag Delivery Note Date of Delivery: 09/02/21 Preoperative Diagnosis: Fiorella Beal is a (25 /Para / ,Gestational Age (wks)39 here for elective IOL Postoperative Diagnosis: Same Surgeon: AMOR INFANTE Operations Assistant: None Anesthesia: Epidural Delivery Type: @1454 Findings: Viable male , apgars 8/9, weight 7#1, 3210 grams Lacerations: None Intact placenta with 3 vessel cord. No nuchal cord, body cord or shoulder dystocia Estimated Blood Loss: 125 ml Complications: None Condition: Stable Description of Procedure: The patient is a 25 year old female who presented for IOL. She was admitted and informed consent was obtained. Her labor course was unremarkable. She progressed to complete dilatation and began to push. She was then set up for delivery. The infant's head was delivered atraumatically in the RYLAND position. The shoulders and remainder of the infant's body were then delivered without difficulty. Upon delivery, the head was held below the level of the perineum and the mouth and nares were bulb suctioned. The cord was doubly clamped and cut by FOB after 2 min delay and the was attended to by the pediatric staff on maternal abdomen. An intact placenta with 3-vessel cord delivered via Marlyn and there was found to be minimal bleeding.~ Vigorous fundal massage was performed and the fundus was found to be firm. IV oxytocin was given. Examination of the vagina and perineum revealed no lacerations that require repair. Following the repair, sponge, instrument and needle counts were correct. Mom and baby were both in stable condition in the labor suite. Vitals - Labs Vital Signs - I&O Vital Signs Date Time Temp Pulse Resp B/P (MAP) Pulse Ox O2 Delivery O2 Flow Rate FiO2 09/02/21 14:15 91 18 114/64 (81) 100 Room Air 09/02/21 14:00 69 18 119/67 (84) 100 Room Air 09/02/21 13:45 96 18 103/58 (73) 99 Room Air 09/02/21 13:30 90 18 113/73 (86) 99 Room Air 09/02/21 13:15 95 18 113/73 (86) 100 Room Air 09/02/21 13:00 91 18 96/60 (72) 99 Room Air 09/02/21 12:45 35.8 74 18 123/76 (92) 99 Room Air 09/02/21 12:30 71 18 119/60 (79) 97 Room Air 09/02/21 12:15 71 18 113/56 (75) 97 Room Air 09/02/21 12:00 77 18 114/56 (75) 97 Room Air 09/02/21 11:45 77 18 113/57 (75) 97 Room Air 09/02/21 11:30 75 18 112/58 (76) 98 Room Air 09/02/21 11:15 75 18 108/58 (75) 98 Room Air 09/02/21 11:00 72 18 112/60 (77) 96 Room Air 09/02/21 10:45 91 18 120/59 (79) 98 Room Air 09/02/21 10:30 92 18 124/68 (86) 99 Room Air 09/02/21 10:15 90 18 124/84 (97) 99 Room Air 09/02/21 10:00 92 18 117/81 (93) 100 Room Air 09/02/21 09:45 84 18 128/79 (95) 100 Room Air 09/02/21 09:30 80 18 133/81 (98) Room Air 09/02/21 09:15 85 18 138/73 (94) Room Air 09/02/21 09:00 77 18 134/80 (98) Room Air 09/02/21 08:45 90 18 134/80 (98) Room Air 09/02/21 08:30 100 18 121/74 (90) Room Air 09/02/21 08:15 102 18 125/78 (94) Room Air 09/02/21 08:00 89 18 130/84 (99) Room Air 09/02/21 07:45 99 18 133/81 (98) Room Air 09/02/21 07:30 101 18 111/54 (73) Room Air 09/02/21 07:15 99 18 118/56 (76) Room Air 09/02/21 06:48 120 18 116/78 (91) Room Air 09/02/21 06:45 113 18 127/82 (97) Room Air 09/02/21 06:39 117 18 143/104 (117) Room Air 09/02/21 06:35 96 18 140/96 (111) Room Air 09/02/21 06:18 101 18 139/70 (93) Room Air 09/02/21 06:12 110 18 139/80 (99) Room Air 09/02/21 06:07 114 18 141/87 (105) 100 Room Air 09/02/21 06:05 106 18 144/92 (109) 100 Room Air 09/02/21 06:02 102 18 141/93 (109) 100 Room Air 09/02/21 06:00 106 18 156/86 (109) 100 Room Air 09/02/21 05:58 114 18 164/99 (120) 100 Room Air 09/02/21 05:55 102 18 140/71 (94) 100 Room Air 09/02/21 05:52 90 18 148/107 (121) 100 Room Air 09/02/21 05:50 112 18 145/94 (111) 100 Room Air 09/02/21 05:48 93 18 139/91 (107) 100 Room Air 09/02/21 05:45 86 18 142/92 (109) 100 Room Air 09/02/21 05:40 87 18 138/87 (104) 100 Room Air 09/02/21 05:38 98 18 150/94 (112) 98 Room Air 09/02/21 03:00 72 18 130/81 (97) Room Air 09/02/21 01:00 18 Room Air 09/02/21 00:00 94 18 126/84 (98) Room Air 09/01/21 23:00 94 18 136/95 (109) Room Air 09/01/21 22:00 36.3 96 18 125/77 (93) Room Air 09/01/21 21:00 36.1 102 18 123/85 (98) 99 Room Air 09/01/21 20:15 36.1 102 18 99 Room Air Labs Laboratory Tests 09/01/21 19:20: Urine Color YELLOW, Urine Clarity SL CLOUDY, Urine pH 6.0, Urine Specific [place] 1.025H, Urine Protein NEGATIVE, Urine Glucose (UA) 1+H, Urine Ketones NEGATIVE, Urine Nitrite NEGATIVE, Urine Bilirubin NEGATIVE, Urine Urobilinogen 1.0, Urine Leukocyte Esterase NEGATIVE, Urine RBC (Auto) NEGATIVE, Urine RBC NONE, Urine WBC 2-5, Urine Squamous Epithelial Cells 10-25H, Urine Crystals PRESENTH, Urine Calcium Oxalate Crystals FEWH, Urine Bacteria MODERATEH, Urine Casts NONE, Urine Mucus SMALLH, Urine Culture Indicated YES 09/01/21 20:00: White Blood Count 10.2, Red Blood Count 4.16, Hemoglobin 11.3L, Hematocrit 35, Mean Corpuscular Volume 85, Mean Corpuscular Hemoglobin 27, Mean Corpuscular Hemoglobin Concent 32, Red Cell Distribution Width 14.6H, Platelet Count 268, Mean Platelet Volume 10.3, Immature Granulocyte % (Auto) 1, Neutrophils (%) (Auto) 68, Lymphocytes (%) (Auto) 20, Monocytes (%) (Auto) 8, Eosinophils (%) (Auto) 2, Basophils (%) (Auto) 0, Neutrophils # (Auto) 7.0, Lymphocytes # (Auto) 2.1, Monocytes # (Auto) 0.8, Eosinophils # (Auto) 0.2, Basophils # (Auto) 0.0, Immature Granulocyte # (Auto) 0.1 AMOR INFANTE MD Sep 02, 2021 15:15
[2021-09-02] MEDS ORDERED: MEASLES,MUMPS,RUBELLA 1 EA INJ SQ ONE (15:30)
[2021-09-02] MEDS ORDERED: OXYTOCIN PRE-MIX DRIP 500 ML IV SCH (15:30)
[2021-09-02] MEDS ORDERED: WITCH HAZEL(TUCKS) 40 EA JAR TOP PRN (15:30)
[2021-09-02] MEDS ORDERED: TETANUS,DIPTH,PERTUSS P/F (BOOSTRIX) 0.5 ML VIAL IM ONE (15:30)
[2021-09-02] MEDS ORDERED: BENZOCAINE/MENTHOL (DERMOPLAST) 56 ML CAN TP PRN (15:30)
[2021-09-02] MEDS: IBUPROFEN 600 MG (MOTRIN) TAB PO SCH ×2 (17:47→23:49)
[2021-09-02] MEDS: DOCUSATE SODIUM 100 MG (COLACE) CAP PO SCH (21:54)
[2021-09-02] MEDS ORDERED: CATHETER FLUSH 10 ML SYR IV SCH (22:00)
[2021-09-02] MEDS: ACETAMINOPHEN 500 MG TAB (TYLENOL) PO PRN (23:49)
[2021-09-03 02:32] VITALS: BP 104/58
[2021-09-03 05:18] LABS: BASOPHILS % (AUTO) 0 % (0-10); EOSINOPHILS # (AUTO) 0.3 10^3/uL (0.0-0.3); EOSINOPHILS % (AUTO) 2 % (0-10); HEMATOCRIT 30 % (35-52); HEMOGLOBIN 9.6 g/dL (11.5-16.0); LYMPHOCYTES # (AUTO) 2.2 10^3/uL (1.0-4.0); LYMPHOCYTES % (AUTO) 20 % (12-44); MEAN CORPUSCULAR HEMOGLOBIN 28 pg (25-34); MEAN CORPUSCULAR HGB CONC 32 g/dL (32-36); MEAN CORPUSCULAR VOLUME 86 fL (80-99); MEAN PLATELET VOLUME 9.9 fL (9.0-12.2); MONOCYTES # (AUTO) 0.7 10^3/uL (0.0-1.0); MONOCYTES % (AUTO) 6 % (0-12); NEUTROPHILS # (AUTO) 8.1 10^3/uL (1.8-7.8); NEUTROPHILS % (AUTO) 71 % (42-75); PLATELET COUNT 200 10^3/uL (130-400); WHITE BLOOD COUNT 11.4 10^3/uL (4.3-11.0)
[2021-09-03 05:53] VITALS: BP 136/88
[2021-09-03] MEDS: IBUPROFEN 600 MG (MOTRIN) TAB PO SCH ×2 (05:56→13:46)
[2021-09-03] MEDS ORDERED: IBUP-844 PO (09:08)
--- NOTE | 2021-09-03 09:08 | Short Stay Summary ---
Discharge Summary Hospital Course Hospital Course Date of Admission: Sep 01, 2021 at 19:10 Admission Diagnosis : Family Physician/Provider: Alix Meza MD Date of Discharge: 09/03/21 Discharge Diagnosis: [ ] Hospital Course: [ ] Labs and Pending Lab Test: Laboratory Tests 09/03/21 05:12: White Blood Count 11.4H, Red Blood Count 3.47L, Hemoglobin 9.6L, Hematocrit 30L, Mean Corpuscular Volume 86, Mean Corpuscular Hemoglobin 28, Mean Corpuscular Hemoglobin Concent 32, Red Cell Distribution Width 14.5, Platelet Count 200, Mean Platelet Volume 9.9, Immature Granulocyte % (Auto) 1, Neutrophils (%) (Auto) 71, Lymphocytes (%) (Auto) 20, Monocytes (%) (Auto) 6, Eosinophils (%) (Auto) 2, Basophils (%) (Auto) 0, Neutrophils # (Auto) 8.1H, Lymphocytes # (Auto) 2.2, Monocytes # (Auto) 0.7, Eosinophils # (Auto) 0.3, Basophils # (Auto) 0.0, Immature Granulocyte # (Auto) 0.1 Home Meds Active Ibu (Ibuprofen) 600 Mg Tablet 600 Mg PO Q6HR PRN Reported Flintstones (Multivitamin) 1 Each Tab.chew 1 Each PO DAILY Discharge Physical Examination Allergies: Coded Allergies: No Known Drug Allergies (Unverified , 05/29/19) Discharge Summary Date of Admission Sep 01, 2021 at 19:10 Date of Discharge ANNA SANTAMARIA DO Sep 03, 2021 09:08
[2021-09-03] MEDS: DOCUSATE SODIUM 100 MG (COLACE) CAP PO SCH (09:14)
[2021-09-03] MEDS: ACETAMINOPHEN 500 MG TAB (TYLENOL) PO PRN (09:14)
--- NOTE | 2021-09-03 10:19 | Anesthesia-Regional Post-Op ---
Regional Patient Condition Mental Status: Alert, Oriented x3 Circulation: Same as Pre-Op Headache: Absent Sensation: Full Recovery Motor Block: Absent Post Op Complications Complications None Follow Up Care/Instructions Patient Instructions None needed. Anesthesia/Patient Condition Patient is doing well, no complaints, stable vital signs, no apparent adverse anesthesia problems. No complications reported per nursing. WILIAM ANDREWS CRNA Sep 03, 2021 10:19
[2021-09-03 13:46] VITALS: BP 156/90
[2021-09-03 15:00] VITALS: BP 111/58
[2021-09-03 15:30] VITALS: BP 111/58
== END 2021-09-03 18:50 | disposition home or self-care (01) | DRG 807 ==
LOC: LDRP 19:10
PROVIDERS: ADMIT Family Medicine; ATTEND Family Medicine
PROC: 10E0XZZ Delivery of Products of Conception, External Approach (ICD-10-PCS; principal; 2021-09-01)
PROC: 3E033VJ Introduction of Other Hormone into Peripheral Vein, Percutaneous Approach (ICD-10-PCS; 2021-09-01)
DX: O80 Encounter for full-term uncomplicated delivery (principal); Z37.0 Single live birth; Z3A.39 39 weeks gestation of pregnancy
CPT/HCPCS: 36415; 81000; 85025; 86850; 86900; 86901; 87088

== ENCOUNTER 2021-09-20 19:24 | Emergency (ER) | payer MEDICAID ==
[~2021-09-20 19:24] MED LIST changes: +MULT-228 PO
--- NOTE | 2021-09-20 19:33 | ED Hip Pain/Injury ---
General Stated Complaint: L HIP PAIN History of Present Illness Date Seen by Provider: Sep 20, 2021 Time Seen by Provider: 19:28 Initial Comments 25-year-old female presents with left groin pain. Patient reports that she awoke with it is gotten worse throughout the day. The pain gets worse with movement and weightbearing. She does not recall any injury. Patient is 2 weeks . She denies any swelling. The pain tracks along the whole groin area, no bulging . Patient last tried some Tylenol around 2 PM Allergies and Home Medications Allergies Coded Allergies: No Known Drug Allergies (Unverified , 05/29/19) Patient Home Medication List Home Medication List Reviewed: Yes Ibuprofen (Ibu) 600 Mg Tablet, 600 MG PO Q6HR PRN for CRAMPS Prescribed by: ANNA SANTAMARIA on 09/03/21 0908 Multivitamin (Flintstones) 1 Each Tab.chew, 1 EACH PO DAILY, (Reported) Entered as Reported by: LEISA DUNN on 09/01/212037 Review of Systems Constitutional: no symptoms reported EENTM: no symptoms reported Respiratory: no symptoms reported Cardiovascular: no symptoms reported Gastrointestinal: no symptoms reported Genitourinary: no symptoms reported Musculoskeletal: see HPI Skin: no symptoms reported Psychiatric/Neurological: No Symptoms Reported Past Qaszfiz-Hhhihk-Bhrunj Hx Immunizations Up To Date Tetanus Booster (TDap): Unknown PED Vaccines UTD: Yes Second COVID19 Vaccination Jorge A: 08-18-21 Seasonal Allergies Seasonal Allergies: No Past Medical History Surgeries: No Respiratory: No Cardiac: No Neurological: No Genitourinary: No Gastrointestinal: No Musculoskeletal: No Endocrine: No HEENT: No Cancer: No Psychosocial: No Integumentary: No Herpes Blood Disorders: No Adverse Reaction/Blood Tranf: No Family Medical History Congenital heart disease 19 MOTHER Physical Exam Vital Signs Vital Signs - First Documented 09/20/21 19:25 Temp 36.3 Pulse 115 Resp 18 B/P (MAP) 134/84 (101) Pulse Ox 96 O2 Delivery Room Air Capillary Refill : Height, Weight, BMI Height: 5'5.00" Weight: 222lbs. 1.0oz. 100.931883fo; 39.14 BMI Method:Actual General Appearance: Mild Distress Cardiovascular: Regular Rate, Rhythm Respiratory: No Accessory Muscle Use, No Respiratory Distress Gastrointestinal: Non Tender, Soft Extremity: Normal Capillary Refill, Other (Tenderness along the left groin worsen with any type of leg movement but especially external rotation) Neurologic/Psychiatric: Oriented x3, No Motor/Sensory Deficits, Normal Mood/Affect, sports writer II-XII Norm as Tested Skin: Normal Color Progress/Results/Core Measures Results/Orders My Orders Orders - SENA BLANTON DO Ketorolac Injection (Toradol Injection) (09/20/21 19:34) Vital Signs/I&O 09/20/21 09/20/21 19:25 19:45 Temp 36.3 36.3 Pulse 115 115 Resp 18 18 B/P (MAP) 134/84 (101) 134/84 Pulse Ox 96 96 O2 Delivery Room Air Room Air Progress Progress Note : Progress Note Patient with a groin strain. I will give her a shot of Toradol here in the ER, that she should take ibuprofen 600 mg 3 times daily. She could also use topical lidocaine, gentle stretching, ice to the affected area. If symptoms have not improved within 4 to 5 days she should follow-up with her primary care provider Departure Impression Primary Impression: Strain of left groin Disposition: 01 HOME, SELF-CARE Condition: Stable Departure-Patient Inst. Referrals: AMOR INFANTE MD (PCP/Family) Primary Care Physician Patient Instructions: Groin Strain Add. Discharge Instructions: 4% topical lidocaine cream or gel with menthol to the affected area as directed on pack [id number] Voltaren cream or gel as directed on package to affected area 600 mg ibuprofen 3 times daily starting tomorrow morning Gentle stretching Follow-up with your primary care provider if symptoms have not improved in the next 4 to 5 days sooner if they continue to worsen SENA BLANTON DO Sep 20, 2021 19:33
[2021-09-20] MEDS ORDERED: KETOROLAC 30 MG/ML VIAL IM STA (19:34)
[2021-09-20 19:45] VITALS: BP 134/84
== END 2021-09-20 19:49 | disposition home or self-care (01) ==
LOC: EDUNIT# 19:24 → ER FS 19:25
DX: S39.011A Strain of muscle, fascia and tendon of abdomen, initial encounter (principal); X50.0XXA Overexertion from strenuous movement or load, initial encounter
CPT/HCPCS: 99284

== ENCOUNTER 2021-12-10 11:44 | Emergency (ER) | payer MEDICAID ==
[~2021-12-10] VITALS: Ht 170 cm; Wt 100.0 kg
[2021-12-10] MEDS ORDERED: LACTATED RINGERS 1,000 ML IV STA (11:46)
--- NOTE | 2021-12-10 11:46 | ED General ---
General Stated Complaint: AMS History of Present Illness Date Seen by Provider: Dec 10, 2021 Time Seen by Provider: 11:40 Initial Comments 26-year-old female brought in with brief syncope type episodes. EMS was called by the boyfriend who was called by a child at the house. Reports that she "passed out" boyfriend reports that she had an episode of this last week. Patient had a couple of brief episodes when she "passed out" however she is easily aroused with any type of activity of just even touching her arm. Patient does not provide much information. Patient was recently started on a medication for antidepression and she has recently . No reports of alcohol or drugs. No reports of recent fevers chills nausea vomiting or cough or cold. Allergies and Home Medications Allergies Coded Allergies: No Known Drug Allergies (Unverified , 05/29/19) Patient Home Medication List Home Medication List Reviewed: Yes Ibuprofen (Ibu) 600 Mg Tablet, 600 MG PO Q6HR PRN for CRAMPS Prescribed by: ANNA SANTAMARIA on 09/03/21 09 Multivitamin (Flintstones) 1 Each Tab.chew, 1 EACH PO DAILY, (Reported) Entered as Reported by: LEISA DUNN on 09/01/212037 Review of Systems Review of Systems Constitutional: see HPI; No chills, No fever Respiratory: no symptoms reported Cardiovascular: no symptoms reported Gastrointestinal: no symptoms reported Genitourinary: no symptoms reported Musculoskeletal: no symptoms reported Skin: no symptoms reported Psychiatric/Neurological: See HPI Physical Exam Vital Signs Capillary Refill : Height, Weight, BMI Height: '" Weight: lbs. oz. kg; BMI Method: General Appearance: No Apparent Distress, Other (Frequent episodes of her "passing out" in which she is very easily arousable) Respiratory: Lungs Clear, Normal Breath Sounds Cardiovascular: Regular Rate, Rhythm, No Edema Gastrointestinal: Non Tender, Soft Extremity: Normal Capillary Refill, Normal Inspection, Normal Range of Motion Neurologic/Psychiatric: No Oriented x3, No Facial Droop, No Motor Weakness, No Sensory Deficit Skin: Normal Color, Warm/Dry Focused Exam Lactate Level 12/10/21 11:55: Lactic Acid Level 0.91 Lactic Acid Level Laboratory Tests Test 12/10/21 11:55 Lactic Acid Level 0.91 MMOL/L (0.50-2.00) Progress/Results/Core Measures Suspected Sepsis SIRS Temperature: Pulse: Respiratory Rate: Laboratory Tests 12/10/21 11:52: White Blood Count 7.8 Blood Pressure / Mean: 12/10/21 11:55: Lactic Acid Level 0.91 Laboratory Tests 12/10/21 11:52: Creatinine 0.65, Platelet Count 276, Total Bilirubin 0.4 Results/Orders Lab Results Laboratory Tests Test 12/10/21 11:52 12/10/21 11:55 12/10/21 12:45 Range/Units White Blood Count 7.8 4.3-11.0 10^3/uL Red Blood Count 5.07 3.80-5.11 10^6/uL Hemoglobin 13.5 11.5-16.0 g/dL Hematocrit 41 35-52 % Mean Corpuscular Volume 81 80-99 fL Mean Corpuscular Hemoglobin 27 25-34 pg Mean Corpuscular Hemoglobin Concent 33 32-36 g/dL Red Cell Distribution Width 14.5 10.0-14.5 % Platelet Count 276 130-400 10^3/uL Mean Platelet Volume 10.4 9.0-12.2 fL Immature Granulocyte % (Auto) 0 % Neutrophils (%) (Auto) 60 42-75 % Lymphocytes (%) (Auto) 28 12-44 % Monocytes (%) (Auto) 6 0-12 % Eosinophils (%) (Auto) 5 0-10 % Basophils (%) (Auto) 1 0-10 % Neutrophils # (Auto) 4.7 1.8-7.8 10^3/uL Lymphocytes # (Auto) 2.2 1.0-4.0 10^3/uL Monocytes # (Auto) 0.5 0.0-1.0 10^3/uL Eosinophils # (Auto) 0.4 H 0.0-0.3 10^3/uL Basophils # (Auto) 0.0 0.0-0.1 10^3/uL Immature Granulocyte # (Auto) 0.0 0.0-0.1 10^3/uL D-Dimer 0.17 0.00-0.49 UG/ML Sodium Level 136 135-145 MMOL/L Potassium Level 3.8 3.6-5.0 MMOL/L Chloride Level 102 98-107 MMOL/L Carbon Dioxide Level 21 21-32 MMOL/L Anion Gap 13 5-14 MMOL/L Blood Urea Nitrogen 10 7-18 MG/DL Creatinine 0.65 0.60-1.30 MG/DL Estimat Glomerular Filtration Rate 126 BUN/Creatinine Ratio 15 Glucose Level 88 70-105 MG/DL Calcium Level 9.5 8.5-10.1 MG/DL Corrected Calcium 8.5-10.1 MG/DL Magnesium Level 1.9 1.6-2.4 MG/DL Total Bilirubin 0.4 0.1-1.0 MG/DL Aspartate Amino Transf (AST/SGOT) 21 5-34 U/L Alanine Aminotransferase (ALT/SGPT) 41 0-55 U/L Alkaline Phosphatase 70 40-136 U/L Troponin I < 0.30 <0.30 NG/ML Total Protein 7.6 6.4-8.2 GM/DL Albumin 4.6 H 3.2-4.5 GM/DL Serum Alcohol < 10 <10 MG/DL Lactic Acid Level 0.91 0.50-2.00 MMOL/L Urine Color YELLOW Urine Clarity CLOUDY Urine pH 8.5 5-9 Urine Specific [place] 1.020 1.016-1.022 Urine Protein NEGATIVE NEGATIVE Urine Glucose (UA) NEGATIVE NEGATIVE Urine Ketones NEGATIVE NEGATIVE Urine Nitrite NEGATIVE NEGATIVE Urine Bilirubin NEGATIVE NEGATIVE Urine Urobilinogen 0.2 < = 1.0 MG/DL Urine Leukocyte Esterase NEGATIVE NEGATIVE Urine RBC (Auto) NEGATIVE NEGATIVE Urine RBC RARE /HPF Urine WBC RARE /HPF Urine Squamous Epithelial Cells 5-10 /HPF Urine Crystals NONE /LPF Urine Bacteria FEW H /HPF Urine Casts NONE /LPF Urine Mucus MODERATE H /LPF Urine Other CLUE CELLS NOTED /HPF Urine Culture Indicated NO Urine Test NEGATIVE NEGATIVE My Orders Orders - BLANTON,SENA L DO Alcohol (12/10/21 11:46) Cbc With Automated Diff (12/10/21 11:46) Comprehensive Metabolic Panel (12/10/21 11:46) Hcg,Qualitative Urine (12/10/21 11:46) Lactic Acid Analyzer (12/10/21 11:46) Magnesium (12/10/21 11:46) Ua Culture If Indicated (12/10/21 11:46) Troponin I Fs (12/10/21 11:46) Accucheck Stat ONCE (12/10/21 11:46) Ekg Tracing (12/10/21 11:46) Monitor-Rhythm Ecg Trace Only (12/10/21 11:46) Lactated Ringers (Lr 1000 Ml Iv Solution (12/10/21 11:46) Fibrin Degradation Products (12/10/21 11:50) Chest Pa/Lat (2 View) (12/10/21 12:36) Vital Signs/I&O Capillary Refill : Progress Note : Progress Note PatientPatient with a benign exam. Patient with no acute findings on any of her evaluation. Is awake an hour in the ER. Patient with unknown syncope or fainting episode. Patient to be discharged home in stable condition. Recommend that she follow-up with her primary care provider for further outpatient evaluation ECG Initial ECG Impression Date: Dec 10, 2021 Initial ECG Impression Time: 11:50 Initial ECG Rate: 78 Initial ECG Rhythm: Normal Sinus Initial ECG Impression: Normal Diagnostic Imaging Diagonstic Imaging: Xray Comments Date of Exam:12/10/21 CHEST PA/LAT (2 VIEW) INDICATION: Syncope. TIME OF EXAM: 12:49 PM Comparison is made with prior chest 02/12/2020. FINDINGS: The heart size is normal. The pulmonary vascularity is unremarkable. The lungs are clear. No infiltrate, effusion or pneumothorax is detected. IMPRESSION: No acute cardiopulmonary process is detected. Departure Impression Primary Impression: Fainting episodes Qualified Codes: R55 - Syncope and collapse Disposition: 01 HOME, SELF-CARE Condition: Stable Departure-Patient Inst. Patient Instructions: Syncope (Fainting) (DC) Add. Discharge Instructions: Follow-up with your primary care provider for further outpatient evaluation and possible cardiology consult if you continue to suffer fainting episodes. Return to the ER as needed SENA BLANTON DO Dec 10, 2021 11:45
[2021-12-10 11:58] LABS: BASOPHILS % (AUTO) 1 % (0-10); EOSINOPHILS # (AUTO) 0.4 10^3/uL (0.0-0.3); EOSINOPHILS % (AUTO) 5 % (0-10); HEMATOCRIT 41 % (35-52); HEMOGLOBIN 13.5 g/dL (11.5-16.0); LYMPHOCYTES # (AUTO) 2.2 10^3/uL (1.0-4.0); LYMPHOCYTES % (AUTO) 28 % (12-44); MEAN CORPUSCULAR HEMOGLOBIN 27 pg (25-34); MEAN CORPUSCULAR HGB CONC 33 g/dL (32-36); MEAN CORPUSCULAR VOLUME 81 fL (80-99); MEAN PLATELET VOLUME 10.4 fL (9.0-12.2); MONOCYTES # (AUTO) 0.5 10^3/uL (0.0-1.0); MONOCYTES % (AUTO) 6 % (0-12); NEUTROPHILS # (AUTO) 4.7 10^3/uL (1.8-7.8); NEUTROPHILS % (AUTO) 60 % (42-75); PLATELET COUNT 276 10^3/uL (130-400); WHITE BLOOD COUNT 7.8 10^3/uL (4.3-11.0)
[2021-12-10 12:29] LABS: ALKALINE PHOSPHATASE 70 U/L (40-136); BILIRUBIN,TOTAL 0.4 MG/DL (0.1-1.0); BUN/CREATININE RATIO 15; CALCIUM 9.5 MG/DL (8.5-10.1); CARBON DIOXIDE 21 MMOL/L (21-32); CHLORIDE 102 MMOL/L (98-107); CREATININE SERUM 0.65 MG/DL (0.60-1.30); GFR ESTIMATED 126; GLUCOSE 88 MG/DL (70-105); MAGNESIUM 1.9 MG/DL (1.6-2.4); POTASSIUM 3.8 MMOL/L (3.6-5.0); SODIUM 136 MMOL/L (135-145)
[2021-12-10 12:30] LABS: ALANINE AMINOTRANSFERASE 41 U/L (0-55); ALBUMIN 4.6 GM/DL (3.2-4.5); TOTAL PROTEIN 7.6 GM/DL (6.4-8.2)
[2021-12-10 12:51] LABS: BILIRUBIN,URINE NEGATIVE (NEGATIVE); CLARITY,URINE CLOUDY; COLOR,URINE YELLOW; GLUCOSE, URINE (UA) NEGATIVE (NEGATIVE); KETONES,URINE NEGATIVE (NEGATIVE); LEUKOCYTE ESTERASE ,URINE NEGATIVE (NEGATIVE); NITRITE,URINE NEGATIVE (NEGATIVE); PH,URINE 8.5 (5-9); PROTEIN,URINE NEGATIVE (NEGATIVE)
--- NOTE | 2021-12-10 12:54 | Diagnostic Imaging Report ---
INDICATION: Syncope. TIME OF EXAM: 12:49 PM Comparison is made with prior chest 02/12/2020. FINDINGS: The heart size is normal. The pulmonary vascularity is unremarkable. The lungs are clear. No infiltrate, effusion or pneumothorax is detected. IMPRESSION: No acute cardiopulmonary process is detected. Dictated by: Dictated on workstation # [id number]
[2021-12-10 13:01] LABS: BACTERIA,URINE FEW /HPF; RBC,URINE RARE /HPF; WBC,URINE RARE /HPF
[2021-12-10 13:02] LABS: URINE OTHER CLUE CELLS NOTED /HPF
[2021-12-10 13:17] VITALS: BP 123/80
== END 2021-12-10 13:15 | disposition home or self-care (01) ==
LOC: EDUNIT# 11:44 → ER FS 11:45
DX: R55 Syncope and collapse (principal)
CPT/HCPCS: 36415; 71046; 80053; 81000; 83605; 83735; 84484; 84703; 85025; 85379; 93005; 99284; G0480; 80320

== ENCOUNTER 2022-05-30 12:32 | Emergency (ER) | payer MEDICAID ==
[~2022-05-30] VITALS: Ht 165.1 cm; Wt 100.0 kg
--- NOTE | 2022-05-30 13:15 | ED General ---
General Stated Complaint: SUICIDAL IDEATION History of Present Illness Date Seen by Provider: May 30, 2022 Time Seen by Provider: 13:06 Initial Comments 26-year-old female with PMH of post- depression/ depression and suicidal attempts when she was a teenager, is brought in by her boyfriend's mother with c/o suicidal ideation with plans to jump of a jade. Denies fever, recent URI symptoms, homicidal ideation, abdominal pain, headache, dysuria. Pt has 2 kids, age 7 yrs and of 8 months, with the older child that has special needs. Pt feels overwhelmed and her boyfriend ( father of her babies) broke up with her today. Pt has not been on any medications since having her baby, and hasn't followed up with PCP stating that 'nothing will work'. Pt has fast paced speech and and is anxious. Allergies and Home Medications Allergies Coded Allergies: No Known Drug Allergies (Unverified , 05/29/19) Patient Home Medication List Home Medication List Reviewed: Yes Ibuprofen (Ibu) 600 Mg Tablet, 600 MG PO Q6HR PRN for CRAMPS Prescribed by: ANNA SANTAMARIA on 09/03/21 09 Multivitamin (Flintstones) 1 Each Tab.chew, 1 EACH PO DAILY, (Reported) Entered as Reported by: LEISA DUNN on 09/01/212037 Review of Systems Review of Systems Constitutional: no symptoms reported EENTM: no symptoms reported Respiratory: no symptoms reported Cardiovascular: no symptoms reported Gastrointestinal: no symptoms reported Genitourinary: no symptoms reported Musculoskeletal: no symptoms reported Skin: no symptoms reported Psychiatric/Neurological: Anxiety, Depressed, Other (suicidal ideation) Hematologic/Lymphatic: No Symptoms Reported Immunological/Allergic: no symptoms reported Past Ngdgjho-Jzfdrk-Yagdcu Hx Immunizations Up To Date Tetanus Booster (TDap): Unknown PED Vaccines UTD: Yes Second COVID19 Vaccination Jorge A: 08-18-21 Seasonal Allergies Seasonal Allergies: No Past Medical History Surgeries: No Respiratory: No Cardiac: No Neurological: No Genitourinary: No Gastrointestinal: No Musculoskeletal: No Endocrine: No HEENT: No Cancer: No Psychosocial: No Integumentary: No Herpes Blood Disorders: No Adverse Reaction/Blood Tranf: No Family Medical History Congenital heart disease 19 MOTHER Physical Exam Vital Signs Vital Signs - First Documented 05/30/22 13:15 Temp 37.1 Pulse 113 Resp 18 B/P (MAP) 120/97 (105) O2 Delivery Room Air Capillary Refill : Height, Weight, BMI Height: 5'5.00" Weight: 222lbs. 1.0oz. 100.298543sh; 34.00 BMI Method:Actual General Appearance: Anxious, Mild Distress, Obese HEENT: PERRL/EOMI, Normal ENT Inspection Neck: Full Range of Motion, Normal Inspection, Non Tender, Supple Respiratory: Chest Non Tender, Lungs Clear, Normal Breath Sounds, No Accessory Muscle Use, No Respiratory Distress Cardiovascular: Regular Rate, Rhythm, No Edema Gastrointestinal: Normal Bowel Sounds, Non Tender, Soft Back: Normal Inspection, No CVA Tenderness, No Vertebral Tenderness Neurologic/Psychiatric: Alert, Oriented x3, No Motor/Sensory Deficits, Depressed Affect, Other (anxiuos and agitated) Skin: Normal Color, Warm/Dry Lymphatic: No Adenopathy Progress/Results/Core Measures Suspected Sepsis SIRS Temperature: Pulse: Respiratory Rate: Laboratory Tests 05/30/22 14:09: White Blood Count 8.3 Blood Pressure / Mean: Laboratory Tests 05/30/22 14:09: Creatinine 0.56L, Platelet Count 283, Total Bilirubin 0.4 Results/Orders Lab Results Laboratory Tests Test 05/30/22 13:26 05/30/22 14:09 Range/Units Urine Color YELLOW Urine Clarity CLEAR Urine pH 7.0 5-9 Urine Specific [place] 1.025 H 1.016-1.022 Urine Protein NEGATIVE NEGATIVE Urine Glucose (UA) NEGATIVE NEGATIVE Urine Ketones NEGATIVE NEGATIVE Urine Nitrite NEGATIVE NEGATIVE Urine Bilirubin NEGATIVE NEGATIVE Urine Urobilinogen 0.2 < = 1.0 MG/DL Urine Leukocyte Esterase NEGATIVE NEGATIVE Urine RBC (Auto) NEGATIVE NEGATIVE Urine RBC NONE /HPF Urine WBC RARE /HPF Urine Squamous Epithelial Cells 0-2 /HPF Urine Crystals NONE /LPF Urine Bacteria TRACE /HPF Urine Casts NONE /LPF Urine Mucus NEGATIVE /LPF Urine Culture Indicated NO Urine Test NEGATIVE NEGATIVE Urine Opiates Screen NEGATIVE NEGATIVE Urine Oxycodone Screen NEGATIVE NEGATIVE Urine Methadone Screen NEGATIVE NEGATIVE Urine Propoxyphene Screen NEGATIVE NEGATIVE Urine Barbiturates Screen NEGATIVE NEGATIVE Ur Tricyclic Antidepressants Screen NEGATIVE NEGATIVE Urine Phencyclidine Screen NEGATIVE NEGATIVE Urine Amphetamines Screen NEGATIVE NEGATIVE Urine Methamphetamines Screen NEGATIVE NEGATIVE Urine Benzodiazepines Screen NEGATIVE NEGATIVE Urine Cocaine Screen NEGATIVE NEGATIVE Urine Cannabinoids Screen POSITIVE H NEGATIVE White Blood Count 8.3 4.3-11.0 10^3/uL Red Blood Count 5.06 3.80-5.11 10^6/uL Hemoglobin 15.0 11.5-16.0 g/dL Hematocrit 44 35-52 % Mean Corpuscular Volume 86 80-99 fL Mean Corpuscular Hemoglobin 30 25-34 pg Mean Corpuscular Hemoglobin Concent 34 32-36 g/dL Red Cell Distribution Width 12.9 10.0-14.5 % Platelet Count 283 130-400 10^3/uL Mean Platelet Volume 10.4 9.0-12.2 fL Immature Granulocyte % (Auto) 0 % Neutrophils (%) (Auto) 68 42-75 % Lymphocytes (%) (Auto) 25 12-44 % Monocytes (%) (Auto) 4 0-12 % Eosinophils (%) (Auto) 2 0-10 % Basophils (%) (Auto) 1 0-10 % Neutrophils # (Auto) 5.6 1.8-7.8 10^3/uL Lymphocytes # (Auto) 2.1 1.0-4.0 10^3/uL Monocytes # (Auto) 0.4 0.0-1.0 10^3/uL Eosinophils # (Auto) 0.2 0.0-0.3 10^3/uL Basophils # (Auto) 0.1 0.0-0.1 10^3/uL Immature Granulocyte # (Auto) 0.0 0.0-0.1 10^3/uL Sodium Level 138 135-145 MMOL/L Potassium Level 4.1 3.6-5.0 MMOL/L Chloride Level 105 98-107 MMOL/L Carbon Dioxide Level 22 21-32 MMOL/L Anion Gap 11 5-14 MMOL/L Blood Urea Nitrogen 8 7-18 MG/DL Creatinine 0.56 L 0.60-1.30 MG/DL Estimat Glomerular Filtration Rate 131 BUN/Creatinine Ratio 14 Glucose Level 100 70-105 MG/DL Calcium Level 9.6 8.5-10.1 MG/DL Corrected Calcium 8.5-10.1 MG/DL Total Bilirubin 0.4 0.1-1.0 MG/DL Aspartate Amino Transf (AST/SGOT) 15 5-34 U/L Alanine Aminotransferase (ALT/SGPT) 21 0-55 U/L Alkaline Phosphatase 69 40-136 U/L Total Protein 7.9 6.4-8.2 GM/DL Albumin 4.8 H 3.2-4.5 GM/DL Salicylates Level < 0.3 L 5.0-20.0 MG/DL Acetaminophen Level < 10 L 10-30 UG/ML Serum Alcohol < 10 <10 MG/DL My Orders Orders - ROLF BERMEO MD Ua Culture If Indicated (05/30/22 13:22) Cbc With Automated Diff (05/30/22 13:22) Comprehensive Metabolic Panel (05/30/22 13:22) Alcohol (05/30/22 13:22) Drug Screen Stat (Urine) (05/30/22 13:22) Acetaminophen (05/30/22 13:22) Salicylate (05/30/22 13:22) Ekg Tracing (05/30/22 13:22) Hcg,Qualitative Urine (05/30/22 13:22) Ed Iv/Invasive Line Start (05/30/22 13:22) Monitor-Rhythm Ecg Trace Only (05/30/22 13:22) Bh Status Checks/Observation Q15M (05/30/22 13:22) Ed Iv/Invasive Line Start (05/30/22 13:22) Lorazepam Tablet (Ativan Tablet) (05/30/22 16:10) Vital Signs/I&O 05/30/22 13:15 Temp 37.1 Pulse 113 Resp 18 B/P (MAP) 120/97 (105) O2 Delivery Room Air Capillary Refill : Progress Note : Progress Note 1. SUICIDAL IDEATION WITH DEPRESSION & ANXIETY: - LAbs unremarkable - Psych screener: in-patient treatment, and later pt was re-screened a couple of times because she kept changing her mind. Made strict plan for her to follow up tomorrow and will be given a series of appointments, and pt agrees to follow safety plan. Departure Impression Primary Impression: Suicidal ideation Additional Impressions: Depression Qualified Codes: F32.A - Depression, unspecified Anxiety Disposition: 01 HOME, SELF-CARE Condition: Stable Departure-Patient Inst. Referrals: AMOR INFANTE MD (PCP) Primary Care Physician Patient Instructions: Suicide Prevention, Tips on Positive Thinking, Tips for How to Help Your Mood Add. Discharge Instructions: Safety plan - Keep appointment for tomorrow with Psych ROLF BERMEO MD May 30, 2022 13:15
[2022-05-30 13:39] LABS: BILIRUBIN,URINE NEGATIVE (NEGATIVE); CLARITY,URINE CLEAR; COLOR,URINE YELLOW; GLUCOSE, URINE (UA) NEGATIVE (NEGATIVE); KETONES,URINE NEGATIVE (NEGATIVE); LEUKOCYTE ESTERASE ,URINE NEGATIVE (NEGATIVE); NITRITE,URINE NEGATIVE (NEGATIVE); PROTEIN,URINE NEGATIVE (NEGATIVE)
[2022-05-30 13:46] LABS: BACTERIA,URINE TRACE /HPF; SQUAMOUS EPITHELIAL CELL,UR 0-2 /HPF; WBC,URINE RARE /HPF
[2022-05-30 13:49] LABS: HCG,QUALITATIVE URINE NEGATIVE (NEGATIVE)
[2022-05-30 13:59] LABS: AMPHETAMINE SCREEN, URINE NEGATIVE (NEGATIVE); BARBITURATE SCREEN URINE NEGATIVE (NEGATIVE); BENZODIAZEPINES SCREEN URINE NEGATIVE (NEGATIVE); CANNABINOID SCREEN, URINE POSITIVE (NEGATIVE); COCAINE SCREEN URINE NEGATIVE (NEGATIVE); METHADONE STAT NEGATIVE (NEGATIVE); OPIATE SCREEN URINE NEGATIVE (NEGATIVE); OXYCODONE STAT NEGATIVE (NEGATIVE); PROPOXYPHENE STAT NEGATIVE (NEGATIVE); TRICYCLIC ANTIDEPRESSANTS SCRE NEGATIVE (NEGATIVE)
[2022-05-30 14:16] LABS: BASOPHILS # (AUTO) 0.1 10^3/uL (0.0-0.1); BASOPHILS % (AUTO) 1 % (0-10); EOSINOPHILS # (AUTO) 0.2 10^3/uL (0.0-0.3); EOSINOPHILS % (AUTO) 2 % (0-10); HEMATOCRIT 44 % (35-52); LYMPHOCYTES # (AUTO) 2.1 10^3/uL (1.0-4.0); LYMPHOCYTES % (AUTO) 25 % (12-44); MEAN CORPUSCULAR HEMOGLOBIN 30 pg (25-34); MEAN CORPUSCULAR HGB CONC 34 g/dL (32-36); MEAN CORPUSCULAR VOLUME 86 fL (80-99); MEAN PLATELET VOLUME 10.4 fL (9.0-12.2); MONOCYTES # (AUTO) 0.4 10^3/uL (0.0-1.0); MONOCYTES % (AUTO) 4 % (0-12); NEUTROPHILS # (AUTO) 5.6 10^3/uL (1.8-7.8); NEUTROPHILS % (AUTO) 68 % (42-75); PLATELET COUNT 283 10^3/uL (130-400); WHITE BLOOD COUNT 8.3 10^3/uL (4.3-11.0)
[2022-05-30 14:38] LABS: CARBON DIOXIDE 22 MMOL/L (21-32); CHLORIDE 105 MMOL/L (98-107); POTASSIUM 4.1 MMOL/L (3.6-5.0); SODIUM 138 MMOL/L (135-145)
[2022-05-30 14:39] LABS: ACETAMINOPHEN < 10 UG/ML (10-30); ALANINE AMINOTRANSFERASE 21 U/L (0-55); ALBUMIN 4.8 GM/DL (3.2-4.5); ALKALINE PHOSPHATASE 69 U/L (40-136); BILIRUBIN,TOTAL 0.4 MG/DL (0.1-1.0); BUN/CREATININE RATIO 14; CALCIUM 9.6 MG/DL (8.5-10.1); CREATININE SERUM 0.56 MG/DL (0.60-1.30); GFR ESTIMATED 131; GLUCOSE 100 MG/DL (70-105); SALICYLATE < 0.3 MG/DL (5.0-20.0); TOTAL PROTEIN 7.9 GM/DL (6.4-8.2)
[2022-05-30] MEDS ORDERED: LORazepam 0.5 MG (ATIVAN) TABLET PO STA (16:10)
[2022-05-30 22:15] VITALS: BP 120/97
== END 2022-05-30 22:15 | disposition home or self-care (01) ==
LOC: EDUNIT# 12:32 → ER FS 12:33
DX: R45.851 Suicidal ideations (principal); F32.A Depression, unspecified; F41.9 Anxiety disorder, unspecified
CPT/HCPCS: 36415; 80053; 80306; 81000; 84703; 85025; 93005; 99283; G0480 ×3; 80320; 80329

== ENCOUNTER 2022-06-26 07:11 | Emergency (ER) | payer MEDICAID ==
[~2022-06-26] VITALS: Ht 165.1 cm; Wt 104.3 kg
[2022-06-26 07:15] VITALS: BP 133/86
--- NOTE | 2022-06-26 07:35 | ED Hip Pain/Injury ---
General Chief Complaint: Hip/Pelvic Problems Stated Complaint: LRQ PAIN Source: patient Exam Limitations: no limitations History of Present Illness Date Seen by Provider: Jun 26, 2022 Time Seen by Provider: 07:10 Initial Comments Patient is a 26-year-old female who presents with right groin pain starting approximately 2 hours ago. Pain is described as dull and radiates to right thigh, lower pelvis and back. Pain is rated as moderate is worse with palpation and movement. Patient took Tylenol and ibuprofen prior to to arrival with limited improvement. Denies nausea vomiting, hematuria, urinary frequency urgency. No history of kidney stones. No constipation diarrhea, no fever chills or sweats. No other acute symptoms or complaints. Last menstrual period 6 weeks ago's. Timing/Duration: this morning Severity: moderate Method of Injury: other Modifying Factors: Improves With Other Associated Symptoms: other Allergies and Home Medications Allergies Coded Allergies: No Known Drug Allergies (Unverified , 05/29/19) Patient Home Medication List Home Medication List Reviewed: Yes Ibuprofen (Ibu) 600 Mg Tablet, 600 MG PO Q6HR PRN for CRAMPS Prescribed by: ANNA SANTAMARIA on 09/03/21 0908 Multivitamin (Flintstones) 1 Each Tab.chew, 1 EACH PO DAILY, (Reported) Entered as Reported by: LEISA DUNN on 09/01/212037 Review of Systems Constitutional: see HPI EENTM: see HPI Respiratory: see HPI Cardiovascular: see HPI Gastrointestinal: see HPI Genitourinary: see HPI Musculoskeletal: see HPI Skin: see HPI Psychiatric/Neurological: See HPI All Other Systems Reviewed Negative Unless Noted: No Past Pianemh-Fvszmc-Ubefmk Hx Patient Social History Tobacco Use?: No Immunizations Up To Date Tetanus Booster (TDap): Unknown PED Vaccines UTD: Yes First/Initial COVID19 Vaccinat: 08-18-21 Second COVID19 Vaccination Jorge A: 08-18-21 Seasonal Allergies Seasonal Allergies: No Past Medical History Surgery/Hospitalization HX: None Surgeries: No Respiratory: No Cardiac: No Neurological: No Genitourinary: No Gastrointestinal: No Musculoskeletal: No Endocrine: No HEENT: No Cancer: No Psychosocial: No Integumentary: No Herpes Blood Disorders: No Adverse Reaction/Blood Tranf: No Family Medical History Congenital heart disease 19 MOTHER Physical Exam Vital Signs Vital Signs - First Documented 06/26/22 07:15 Temp 35.6 Pulse 85 Resp 19 B/P (MAP) 133/86 (102) O2 Delivery Room Air Capillary Refill : Height, Weight, BMI Height: 5'5.00" Weight: 222lbs. 1.0oz. 100.785323vy; 36.00 BMI Method:Actual General Appearance: WD/WN, Anxious, Mild Distress (Secondary to pain) HEENT: PERRL/EOMI Neck: Normal Inspection, Non Tender Cardiovascular: Regular Rate, Rhythm, No Edema Respiratory: Chest Non Tender, Lungs Clear Gastrointestinal: Soft Back: Normal Inspection, No CVA Tenderness, No Vertebral Tenderness Extremity: Non Tender, No Calf Tenderness, Other (Right inguinal pain/tenderness reproducing pain complaint, no appreciated hernia, subcutaneous mass,) Neurologic/Psychiatric: Alert, Oriented x3 Progress/Results/Core Measures Results/Orders Lab Results Laboratory Tests Test 06/26/22 07:16 06/26/22 07:45 Range/Units Urine Color YELLOW Urine Clarity CLEAR Urine pH 5.5 5-9 Urine Specific [place] >=1.030 1.016-1.022 Urine Protein NEGATIVE NEGATIVE Urine Glucose (UA) NEGATIVE NEGATIVE Urine Ketones NEGATIVE NEGATIVE Urine Nitrite NEGATIVE NEGATIVE Urine Bilirubin NEGATIVE NEGATIVE Urine Urobilinogen 0.2 < = 1.0 MG/DL Urine Leukocyte Esterase NEGATIVE NEGATIVE Urine RBC (Auto) NEGATIVE NEGATIVE Urine RBC 5-10 H /HPF Urine WBC 2-5 /HPF Urine Squamous Epithelial Cells 25-50 H /HPF Urine Crystals NONE /LPF Urine Bacteria MODERATE H /HPF Urine Casts NONE /LPF Urine Mucus LARGE H /LPF Urine Culture Indicated NO Urine Opiates Screen NEGATIVE NEGATIVE Urine Oxycodone Screen NEGATIVE NEGATIVE Urine Methadone Screen NEGATIVE NEGATIVE Urine Propoxyphene Screen NEGATIVE NEGATIVE Urine Barbiturates Screen NEGATIVE NEGATIVE Ur Tricyclic Antidepressants Screen NEGATIVE NEGATIVE Urine Phencyclidine Screen NEGATIVE NEGATIVE Urine Amphetamines Screen NEGATIVE NEGATIVE Urine Methamphetamines Screen NEGATIVE NEGATIVE Urine Benzodiazepines Screen NEGATIVE NEGATIVE Urine Cocaine Screen NEGATIVE NEGATIVE Urine Cannabinoids Screen POSITIVE H NEGATIVE White Blood Count 5.3 4.3-11.0 10^3/uL Red Blood Count 4.45 3.80-5.11 10^6/uL Hemoglobin 13.1 11.5-16.0 g/dL Hematocrit 39 35-52 % Mean Corpuscular Volume 87 80-99 fL Mean Corpuscular Hemoglobin 29 25-34 pg Mean Corpuscular Hemoglobin Concent 34 32-36 g/dL Red Cell Distribution Width 12.5 10.0-14.5 % Platelet Count 223 130-400 10^3/uL Mean Platelet Volume 10.3 9.0-12.2 fL Immature Granulocyte % (Auto) 1 % Neutrophils (%) (Auto) 52 42-75 % Lymphocytes (%) (Auto) 33 12-44 % Monocytes (%) (Auto) 9 0-12 % Eosinophils (%) (Auto) 5 0-10 % Basophils (%) (Auto) 0 0-10 % Neutrophils # (Auto) 2.8 1.8-7.8 10^3/uL Lymphocytes # (Auto) 1.8 1.0-4.0 10^3/uL Monocytes # (Auto) 0.5 0.0-1.0 10^3/uL Eosinophils # (Auto) 0.3 0.0-0.3 10^3/uL Basophils # (Auto) 0.0 0.0-0.1 10^3/uL Immature Granulocyte # (Auto) 0.0 0.0-0.1 10^3/uL D-Dimer 0.41 0.00-0.49 UG/ML Sodium Level 137 135-145 MMOL/L Potassium Level 4.0 3.6-5.0 MMOL/L Chloride Level 104 98-107 MMOL/L Carbon Dioxide Level 23 21-32 MMOL/L Anion Gap 10 5-14 MMOL/L Blood Urea Nitrogen 11 7-18 MG/DL Creatinine 0.64 0.60-1.30 MG/DL Estimat Glomerular Filtration Rate 126 BUN/Creatinine Ratio 17 Glucose Level 92 70-105 MG/DL Calcium Level 9.1 8.5-10.1 MG/DL My Orders Orders - ROHAN ARANGO DO Cbc With Automated Diff (06/26/22 07:31) Basic Metabolic Panel (06/26/22 07:31) Fibrin Degradation Products (06/26/22 07:31) Hydrocodone/Apap 5/325 Tablet (Lortab 5 (06/26/22 07:45) Cyclobenzaprine Tablet (Flexeril Tablet) (06/26/22 07:45) Urine Bedside (06/26/22 07:35) Ct Abdomen/Pelvis W (06/26/22 07:38) Morphine Injection (Morphine Injection (06/26/22 07:38) Ondansetron Injection (Zofran Injectio (06/26/22 07:45) Drug Screen Stat (Urine) (06/26/22 07:38) Ua Culture If Indicated (06/26/22 07:38) Iohexol Injection (Omnipaque 350 Mg/Ml 1 (06/26/22 07:45) Received Contrast (Hold Metformin- Contr (06/26/22 07:45) Sodium Chloride Flush (Catheter Flush Sy (06/26/22 07:45) Ns (Ivpb) (Sodium Chloride 0.9% Ivpb Bag (06/26/22 07:45) Ed Iv/Invasive Line Start (06/26/22 08:11) Medications Given in ED Current Medications Medications Dose Ordered Sig/Mary Route Start Time Stop Time Status Last Admin Dose Admin Acetaminophen/ Hydrocodone Bitart 1 ea ONCE ONCE PO 06/26/22 07:45 06/26/22 07:41 DC 06/26/22 07:37 1 EA Iohexol 100 ml ONCE ONCE IV 06/26/22 07:45 06/26/22 07:46 DC 06/26/22 07:58 100 ML Ondansetron HCl 4 mg ONCE ONCE IVP 06/26/22 07:45 06/26/22 07:46 DC 06/26/22 07:51 4 MG Sodium Chloride 10 ml NEEDED PRN IV 06/26/22 07:45 06/26/22 07:58 10 ML Sodium Chloride 100 ml ONCE ONCE IV 06/26/22 07:45 06/26/22 07:46 DC 06/26/22 07:58 80 ML Vital Signs/I&O 06/26/22 07:15 Temp 35.6 Pulse 85 Resp 19 B/P (MAP) 133/86 (102) O2 Delivery Room Air Departure Communication (Admissions) CT abdomen pelvis: No acute findings on radiology review. Right groin/inguinal pain. CT lab reviewed. No evidence or exam findings of hernia, kidney stone, appendicitis or DVT. Pain resolved with treatment. Recommendations for supportive care with watchful waiting and PCP follow-up. Return precautions reviewed. Patient verbalizes understanding agreement discharge instructions prior to departure. Impression Primary Impression: Right groin pain Disposition: 01 HOME, SELF-CARE Condition: Stable Departure-Patient Inst. Decision time for Depature: 09:27 Referrals: AMOR INFANTE MD (PCP) Primary Care Physician Patient Instructions: Pelvic Pain ED Add. Discharge Instructions: You were evaluated in the emergency department for right groin pain. Lab and imaging studies have been performed and are nondiagnostic. The exact cause of your symptoms has not been determined but may be caused by groin strain. Please take 2 Aleve twice daily and Flexeril as needed for additional relief. Avoid bending, excessive walking and strenuous physical activity. Follow-up with your PCP in 2 to 3 days for reevaluation. In the meantime if you develop new or worsening symptoms return to the ED All discharge instructions reviewed with patient and/or family. Voiced understanding. Scripts Cyclobenzaprine HCl (Cyclobenzaprine HCl) 10 Mg Tablet 10 MG PO TID, #15 TAB Prov: ROHAN ARANGO DO 06/26/22 ROHAN ARANGO DO Jun 26, 2022 07:35
[2022-06-26] MEDS ORDERED: morphine INJ 10 MG/ML 1ML (SYR OR VIAL) IVP STA (07:38)
[2022-06-26] MEDS ORDERED: CYCLOBENZAPRINE 10 MG (FLEXERIL) TAB PO SCH (07:45)
[2022-06-26] MEDS ORDERED: HOLD METFORMIN - RECEIVED CONTRAST 20 ML VIAL IV SCH (07:45)
[2022-06-26] MEDS ORDERED: NS 100 ML (IVPB) BAG IV ONE (07:45)
[2022-06-26] MEDS ORDERED: CATHETER FLUSH 10 ML SYR IV PRN (07:45)
[2022-06-26] MEDS ORDERED: HYDROcodone/APAP 5 MG/325 MG (LORTAB) TAB PO ONE (07:45)
[2022-06-26] MEDS ORDERED: IOHEXOL 350 MG/ML 100 ML (OMNIPAQUE 350) VIAL IV ONE (07:45)
[2022-06-26] MEDS ORDERED: ONDANSETRON 4 MG/2 ML (SDV) Z0FRAN IVP ONE (07:45)
[2022-06-26 07:52] LABS: BILIRUBIN,URINE NEGATIVE (NEGATIVE); CLARITY,URINE CLEAR; COLOR,URINE YELLOW; GLUCOSE, URINE (UA) NEGATIVE (NEGATIVE); KETONES,URINE NEGATIVE (NEGATIVE); LEUKOCYTE ESTERASE ,URINE NEGATIVE (NEGATIVE); NITRITE,URINE NEGATIVE (NEGATIVE); PH,URINE 5.5 (5-9); PROTEIN,URINE NEGATIVE (NEGATIVE)
[2022-06-26 07:54] LABS: BASOPHILS % (AUTO) 0 % (0-10); EOSINOPHILS # (AUTO) 0.3 10^3/uL (0.0-0.3); EOSINOPHILS % (AUTO) 5 % (0-10); HEMATOCRIT 39 % (35-52); HEMOGLOBIN 13.1 g/dL (11.5-16.0); LYMPHOCYTES # (AUTO) 1.8 10^3/uL (1.0-4.0); LYMPHOCYTES % (AUTO) 33 % (12-44); MEAN CORPUSCULAR HEMOGLOBIN 29 pg (25-34); MEAN CORPUSCULAR HGB CONC 34 g/dL (32-36); MEAN CORPUSCULAR VOLUME 87 fL (80-99); MEAN PLATELET VOLUME 10.3 fL (9.0-12.2); MONOCYTES # (AUTO) 0.5 10^3/uL (0.0-1.0); MONOCYTES % (AUTO) 9 % (0-12); NEUTROPHILS # (AUTO) 2.8 10^3/uL (1.8-7.8); NEUTROPHILS % (AUTO) 52 % (42-75); PLATELET COUNT 223 10^3/uL (130-400); WHITE BLOOD COUNT 5.3 10^3/uL (4.3-11.0)
[2022-06-26 07:59] LABS: BACTERIA,URINE MODERATE /HPF
[2022-06-26 08:00] LABS: SQUAMOUS EPITHELIAL CELL,UR 25-50 /HPF
[2022-06-26 08:03] LABS: AMPHETAMINE SCREEN, URINE NEGATIVE (NEGATIVE); BARBITURATE SCREEN URINE NEGATIVE (NEGATIVE); BENZODIAZEPINES SCREEN URINE NEGATIVE (NEGATIVE); CANNABINOID SCREEN, URINE POSITIVE (NEGATIVE); COCAINE SCREEN URINE NEGATIVE (NEGATIVE); METHADONE STAT NEGATIVE (NEGATIVE); OPIATE SCREEN URINE NEGATIVE (NEGATIVE); OXYCODONE STAT NEGATIVE (NEGATIVE); PROPOXYPHENE STAT NEGATIVE (NEGATIVE); TRICYCLIC ANTIDEPRESSANTS SCRE NEGATIVE (NEGATIVE)
[2022-06-26 08:11] LABS: CALCIUM 9.1 MG/DL (8.5-10.1); CREATININE SERUM 0.64 MG/DL (0.60-1.30)
--- NOTE | 2022-06-26 08:35 | Diagnostic Imaging Report ---
EXAMINATION: CT abdomen and pelvis with intravenous contrast. TECHNIQUE: Multiple contiguous axial images were obtained through the abdomen and pelvis after the uneventful administration of intravenous contrast. All CT scans use one or more of the following dose optimizing techniques: automated exposure control, MA and/or KvP adjustment based on patient size and exam type or iterative reconstruction. HISTORY: Right lower quadrant pain COMPARISON: 02/12/2020 FINDINGS: Limited views of the lower thorax are unremarkable. The liver is normal without focal lesion. There is no biliary ductal dilation. Gallbladder is normal. Pancreas is normal. Spleen is normal. Adrenal glands are normal. The kidneys are normal. There is no hydronephrosis. Urinary bladder is normal. Bowel is normal in caliber without obstruction or inflammation. The appendix is normal. No free fluid or air. No abdominal or pelvic lymphadenopathy. Aorta is normal in caliber without aneurysm. There are no suspicious osseus lesions. IMPRESSION: 1. No acute abnormality in the abdomen or pelvis. Dictated by: Dictated on workstation # [id number]
[2022-06-26] MEDS ORDERED: CYCL10TA25 PO (09:29)
== END 2022-06-26 09:51 | disposition home or self-care (01) ==
LOC: EDUNIT# 07:11 → ER FS 07:12
DX: R10.31 Right lower quadrant pain (principal)
CPT/HCPCS: 36415; 74177; 80048; 80306; 81000; 84703; 85025; 85379; Q9967

== ENCOUNTER 2022-11-12 10:17 | Emergency (ER) | payer MEDICAID ==
[~2022-11-12] VITALS: Ht 165 cm; Wt 105.0 kg
[~2022-11-12 10:17] MED LIST changes: +CYCL10TA25 PO
--- NOTE | 2022-11-12 10:22 | ED Cough/URI ---
General Stated Complaint: DIZZINESS,SORE THROAT, BODY ACHES History of Present Illness Date Seen by Provider: Nov 12, 2022 Time Seen by Provider: 10:22 Initial Comments 27-year-old female with no significant PMH is here with complaints of myalgia, lethargy, sore throat, body aches, 3 episodes of diarrhea which began today morning. Patient had pizza for dinner last night and was able to tolerated with no symptoms. Patient is able to drink fluids and eat without vomiting. Patient states that she felt feverish and had chills today morning, and bilateral ear pain as well. Denies nausea and vomiting, abdominal pain, shortness of breath, chest pain, cough, headache, neck pain or stiffness, dizziness. Patient's baby is also unwell but has not been specifically diagnosed with anything. Allergies and Home Medications Allergies Coded Allergies: No Known Drug Allergies (Unverified , 05/29/19) Patient Home Medication List Home Medication List Reviewed: Yes Amoxicillin/Potassium Clav (Amox Tr-K Clv 875-125 mg Tab) 875 Mg-125 Mg Tablet, 1 EACH PO BID Prescribed by: ROLF BERMEO MD on 11/12/22 1135 Cyclobenzaprine HCl (Cyclobenzaprine HCl) 10 Mg Tablet, 10 MG PO TID Prescribed by: ROHAN ARANGO on 06/26/22 0929 Ibuprofen (Ibu) 600 Mg Tablet, 600 MG PO Q6HR PRN for CRAMPS Prescribed by: ANNA SANTAMARIA on 09/03/21 0908 Multivitamin (Flintstones) 1 Each Tab.chew, 1 EACH PO DAILY, (Reported) Entered as Reported by: LEISA DUNN on 09/01/212037 Review of Systems Review of Systems Constitutional: chills, malaise EENTM: ear pain, throat pain Respiratory: no symptoms reported Cardiovascular: no symptoms reported Gastrointestinal: diarrhea Genitourinary: no symptoms reported Musculoskeletal: no symptoms reported Skin: no symptoms reported Psychiatric/Neurological: No Symptoms Reported Hematologic/Lymphatic: No Symptoms Reported Immunological/Allergic: no symptoms reported Past Wknfoyo-Fvwyyb-Srfcwy Hx Immunizations Up To Date Tetanus Booster (TDap): Unknown PED Vaccines UTD: Yes First/Initial COVID19 Vaccinat: 08-18-21 Second COVID19 Vaccination Jorge A: 08-18-21 Seasonal Allergies Seasonal Allergies: No Past Medical History Surgery/Hospitalization HX: None Surgeries: No Respiratory: No Cardiac: No Neurological: No Genitourinary: No Gastrointestinal: No Musculoskeletal: No Endocrine: No HEENT: No Cancer: No Psychosocial: No Integumentary: No Herpes Blood Disorders: No Adverse Reaction/Blood Tranf: No Family Medical History Congenital heart disease 19 MOTHER Physical Exam Vital Signs - First Documented 11/12/22 10:32 Temp 36.4 Pulse 110 Resp 18 B/P (MAP) 144/80 (101) Pulse Ox 99 O2 Delivery Room Air Capillary Refill : Height: 5'5.00" Weight: 222lbs. 1.0oz. 100.869071cv; 38.00 BMI Method:Actual General Appearance: WD/WN, no apparent distress HEENT: PERRL/EOMI, normal ENT inspection, TMs normal, pharyngeal erythema (Very mild, with normal tonsils) Neck: non-tender, full range of motion, supple, normal inspection Respiratory: chest non-tender, lungs clear, normal breath sounds, no respiratory distress, no accessory muscle use Cardiovascular: regular rate, rhythm, no edema Gastrointestinal: normal bowel sounds, non tender, soft, no organomegaly Extremities: normal range of motion Neurologic/Psychiatric: alert, normal mood/affect, oriented x 3 Skin: normal color Lymphatic: no adenopathy Progress/Results/Core Measures Suspected Sepsis SIRS Temperature: Pulse: Respiratory Rate: Blood Pressure / Mean: Results/Orders Lab Results Laboratory Tests Test 11/12/22 10:30 11/12/22 10:37 Range/Units Influenza Type A (RT-PCR) Not Detected Not Detecte Influenza Type B (RT-PCR) Not Detected Not Detecte SARS-CoV-2 RNA (RT-PCR) Not Detected Not Detecte Group A Streptococcus Screen POSITIVE H NEGATIVE My Orders Orders - ROLF BERMEO MD Covid 19 Inhouse Test (11/12/22 10:22) Influenza A And B By Pcr (11/12/22 10:22) Rapid Strep A Screen (11/12/22 10:22) Covid 19 Inhouse Test (11/12/22 10:37) Influenza A And B By Pcr (11/12/22 10:37) Vital Signs/I&O 11/12/22 10:32 Temp 36.4 Pulse 110 Resp 18 B/P (MAP) 144/80 (101) Pulse Ox 99 O2 Delivery Room Air Capillary Refill : Progress Note : Progress Note 1. STREP THROAT: - COVID test: negative - Rapid strep test: positive - Rapid flu test: negative - Prescription given for Augmentin bid for 7 days - Advised adequate hydration, Tylenol or Ibuprofen prn fever or body aches - Follow up with PCP in 3 to 7 days the patient was seen in the ED, and treated appropriately to presentation at a specific point in time. Patient is informed that there is a possibility that disease and illness can evolve and change in acuity rapidly or slowly after patient is discharged from the ER. Precautionary advice given to the patient for immediate return to ER if symptoms worsen or do not resolve, and to seek emergency care sooner rather than later. Pt also advised on the importance of PCP follow up and compliance with management and follow up plan with PCP and/or specialist, as this is part of the management plan. Pt verbally expressed understanding. Departure Impression Primary Impression: Strep throat Disposition: 01 HOME, SELF-CARE Condition: Stable Departure-Patient Inst. Referrals: AMOR INFANTE MD (PCP/Family) Primary Care Physician Patient Instructions: Sore Throat, Adult ED Add. Discharge Instructions: - Prescription given for Augmentin bid for 7 days - Advised adequate hydration, Tylenol or Ibuprofen prn fever or body aches Scripts Amoxicillin/Potassium Clav (Amox Tr-K Clv 875-125 mg Tab) 875 Mg-125 Mg Tablet 1 EACH PO BID for 7 Days, #14 TAB Prov: ROLF BERMEO MD 11/12/22 ROLF BERMEO MD Nov 12, 2022 10:22
[2022-11-12] MEDS ORDERED: AMOX1TAB12 PO (11:35)
[2022-11-12 11:44] VITALS: BP 144/80
== END 2022-11-12 11:44 | disposition home or self-care (01) ==
LOC: EDUNIT# 10:17 → ER FS 10:20
DX: J02.0 Streptococcal pharyngitis (principal); Z20.822 Contact with and (suspected) exposure to COVID-19
CPT/HCPCS: 87430; 87636; 99283

== ENCOUNTER 2023-08-20 11:39 | Emergency (ER) | payer MEDICAID ==
[~2023-08-20] VITALS: Ht 165 cm; Wt 104.0 kg
[~2023-08-20 11:39] MED LIST changes: +AMOX1TAB12 PO
[2023-08-20] MEDS ORDERED: ONDANSETRON 4 MG ORAL DISSOLVE TABLET PO STA (12:00)
--- NOTE | 2023-08-20 12:00 | ED General ---
General Chief Complaint: Abdominal/GI Problems Stated Complaint: VOMITING/SOMETHING STUCK IN THROAT Source of Information: Patient Exam Limitations: No Limitations History of Present Illness Date Seen by Provider: Aug 20, 2023 Time Seen by Provider: 11:50 Initial Comments Mahnaz is a 27yo femal to the ER with concern for "something stuck in her throat". She has had vomiting and diarrhea for 2-3 days and has been retching/dry heaving a lot. She has had multiple bouts of diarrhea. No fever, chills, blood in stool or vomit. No dysuria, frequency. She states she ate an egg sandwich around 5 am and ever since has felt something in her throat. SHe has never had an issue with foreign body in esophagus before. No history of EGD. She does appear to be handling her own secretions well on initial exam. Timing/Duration: 4-6 Hours Severity: Moderate Associated Systoms: Chest Pain, Nausea/Vomiting Allergies and Home Medications Allergies Coded Allergies: No Known Drug Allergies (Unverified , 05/29/19) Patient Home Medication List Home Medication List Reviewed: Yes Amoxicillin/Potassium Clav (Amox Tr-K Clv 875-125 mg Tab) 875 Mg-125 Mg Tablet, 1 EACH PO BID Prescribed by: ROLF BERMEO MD on 11/12/22 1135 Cyclobenzaprine HCl (Cyclobenzaprine HCl) 10 Mg Tablet, 10 MG PO TID Prescribed by: ROHAN ARANGO on 06/26/22 0929 Ibuprofen (Ibu) 600 Mg Tablet, 600 MG PO Q6HR PRN for CRAMPS Prescribed by: ANNA SANTAMARIA on 09/03/21 0908 Lidocaine HCl (Lidocaine HCl) 2 % Jel.pf.tee, 5 ML MM Q4H PRN for esophageal pain/discomfort Prescribed by: HAM DOMINGO on 08/20/23 141 Multivitamin (Flintstones) 1 Each Tab.chew, 1 EACH PO DAILY, (Reported) Entered as Reported by: LEISA DUNN on 09/01/212037 Ondansetron (Ondansetron Odt) 4 Mg Tab.rapdis, 4 MG SL Q8H PRN for NAUSEA/VOMITING Prescribed by: HAM DOMINGO on 08/20/23 141 Discontinued Medications Lidocaine HCl (Lidocaine HCl) 2 % Jel.pf.tee, 5 ML MM Q4H PRN for esophageal pain Prescribed by: HAM DOMINGO on 08/20/23 1404 Ondansetron (Ondansetron Odt) 4 Mg Tab.rapdis, 4 MG SL Q8H PRN for NAUSEA/VOMITING Prescribed by: HAM DOMINGO on 08/20/23 1404 Review of Systems Review of Systems Constitutional: see HPI EENTM: no symptoms reported Respiratory: no symptoms reported Cardiovascular: chest pain ("something stuck in my throat") Gastrointestinal: diarrhea, nausea Genitourinary: no symptoms reported Musculoskeletal: no symptoms reported Skin: no symptoms reported Psychiatric/Neurological: No Symptoms Reported Past Brzftmn-Qwetdu-Zwmtfj Hx Immunizations Up To Date Tetanus Booster (TDap): Unknown PED Vaccines UTD: Yes First/Initial COVID19 Vaccinat: 08-18-21 Second COVID19 Vaccination Jorge A: 08-18-21 Seasonal Allergies Seasonal Allergies: No Past Medical History Surgery/Hospitalization HX: None Surgeries: No Respiratory: No Cardiac: No Neurological: No Genitourinary: No Gastrointestinal: No Musculoskeletal: No Endocrine: No HEENT: No Cancer: No Psychosocial: No Integumentary: No Herpes Blood Disorders: No Adverse Reaction/Blood Tranf: No Family Medical History Congenital heart disease 19 MOTHER Physical Exam Vital Signs Vital Signs - First Documented 08/20/23 12:29 Temp 37.5 Pulse 114 Resp 20 B/P (MAP) 138/101 (113) Pulse Ox 99 O2 Delivery Room Air Capillary Refill : Height, Weight, BMI Height: 5'5.00" Weight: 222lbs. 1.0oz. [id number]; 38.00 BMI Method:Actual General Appearance: No Apparent Distress, WD/WN, Obese Eyes: Bilateral Eye Normal Inspection, Bilateral Eye PERRL, Bilateral Eye EOMI HEENT: PERRL/EOMI, Pharynx Normal, Moist Mucous Membranes Neck: Normal Inspection, Supple Respiratory: Lungs Clear, Normal Breath Sounds, No Accessory Muscle Use, No Respiratory Distress Cardiovascular: Regular Rate, Rhythm, Normal Peripheral Pulses Gastrointestinal: Non Tender, Soft Extremity: Normal Inspection, Normal Range of Motion Neurologic/Psychiatric: Alert, Oriented x3, No Motor/Sensory Deficits, Normal Mood/Affect, 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 II-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 Norm as Tested Skin: Normal Color, Warm/Dry Progress/Results/Core Measures Suspected Sepsis SIRS Temperature: Pulse: Respiratory Rate: Blood Pressure / Mean: Results/Orders My Orders Orders - HAM DOMINGO MD Ondansetron Oral Dissolve Tab (Ondanset (08/20/23 12:00) Lidocaine 2% Viscous 15 Ml (Xylocaine Vi (08/20/23 12:30) Antacid Suspension (Antacid Suspension (08/20/23 12:30) Soft Tissue Neck (08/20/23 13:02) Promethazine Injection (Promethazine I (08/20/23 13:45) Medications Given in ED Vital Signs/I&O 08/20/23 12:29 Temp 37.5 Pulse 114 Resp 20 B/P (MAP) 138/101 (113) Pulse Ox 99 O2 Delivery Room Air Capillary Refill : Progress Note : Time: 13:53 Progress Note Patient seen and examine by me - mio today includes physical exam and xrays of the soft tissues of the neck. Pertinent physical exam findings include WDWN obese female in NAD. HEENT exam is WNL. Heart is regular - lungs are clear. No "Adrien's crunch" on auscultation. No concern for boerhave's/esophageal tear. Her abdominal exam is benign. ddx includes possible food bolus, esophageal spasm/abrasion Xrays independently reviewed and interpreted by me - I saw no concerning findings on xray - which was confirmed on radiology interpretation She was initially treated with 30ml of maalox and 5ml viscous lidocaine and 8mg zofran ODT. She had some relief of symptoms. She was able to tolerate small sips of water but still nauseated. I discussed the very low likelihood of food bolus based on her exam and the reassurance provided made her feel much better. She asked for additional nausea medications and was given 25mg phenergan IM. I encouraged acid reducers such as pepcid over the counter. return precautions provided in both verbal and written format. patient was comfortable with discharge to home. Diagnostic Imaging Diagonstic Imaging: Xray Comments [facility] [place], [place] NAME: MARGOMAHNAZ R [facility] REC#: [id number] PT STATUS: REG ER : 1995 PHYSICIAN: HAM DOMINGO MD ADMIT DATE: 08/20/23/ER Draft Date of Exam:08/20/23 SOFT TISSUE NECK EXAMINATION: Soft tissue neck radiographs, 2 views. COMPARISON: None. HISTORY: 27-year-old female, concern for foreign body. FINDINGS: There is no radiopaque foreign body within the included [id number]. There is no prominent narrowing of the airway. There is no prevertebral soft tissue swelling. There is no thickening of the epiglottis. IMPRESSION: 1. No radiographically apparent foreign body. 2. Additional soft tissue neck radiographs evaluation is unremarkable. Dictated on workstation # [id number] Dict: 08/20/23 1337 Trans: 08/20/23 1340 [facility] [id number] Interpreted by: JESSI BRO MD Electronically signed by: Departure Impression Primary Impression: Acute gastroenteritis Additional Impression: Esophagitis Disposition: HOME, SELF-CARE Condition: Stable Departure-Patient Inst. Decision time for Depature: 13:54 Referrals: AMOR INFANTE MD (PCP/Family) Primary Care Physician Patient Instructions: Viral Gastroenteritis, Child ED Add. Discharge Instructions: Use the viscous lidocaine 1 tsp mixed with 3 teaspoons of Maalox (over-the- counter) every 6-8 hours as needed for that feeling of something being stuck in your throat/pain. Take the ondansetron (zofran) 1 tablet every 6-8 hours as needed for nausea and vomiting. An over the counter acid vending machine assembler such as generic pepcid may be helpful in the setting of your upset stomach. 1 pill (20mg) twice a day for a week. You can take generic Imodium for the diarrhea ("anti-diarrheal tablets") - follow packaging instructions. Return to the Emergency Department for any new, concerning or emergent complaints, especially fever with persistent diarrhea and blood in your stools. Scripts Lidocaine HCl (Lidocaine HCl) 2 % Jel.pf.tee 5 ML MM Q4H PRN for esophageal pain/discomfort, #60 ML swish and swallow Prov: HAM DOMINGO MD 08/20/23 Ondansetron (Ondansetron Odt) 4 Mg Tab.rapdis 4 MG SL Q8H PRN for NAUSEA/VOMITING, #10 TAB Prov: HAM DOMINGO MD 08/20/23 Copy Copies To 1: AMOR INFANTE MD, KATHRYN M MD Aug 20, 2023 12:00
[2023-08-20 12:29] VITALS: BP 138/101
[2023-08-20] MEDS ORDERED: ANTACID SUSPENSION 30 ML UDC PO ONE (12:30)
[2023-08-20] MEDS ORDERED: LIDOCAINE 2% VISCOUS 15 ML UDC PO ONE (12:30)
--- NOTE | 2023-08-20 13:40 | Diagnostic Imaging Report ---
EXAMINATION: Soft tissue neck radiographs, 2 views. COMPARISON: None. HISTORY: 27-year-old female, concern for foreign body. FINDINGS: There is no radiopaque foreign body within the included [id number]. There is no prominent narrowing of the airway. There is no prevertebral soft tissue swelling. There is no thickening of the epiglottis. IMPRESSION: 1. No radiographically apparent foreign body. 2. Additional soft tissue neck radiographs evaluation is unremarkable. Dictated by: Dictated on workstation # [id number]
[2023-08-20] MEDS ORDERED: PROMETHAZINE INJ 25 MG/ML VIAL IM ONE (13:45)
[2023-08-20] MEDS ORDERED: LIDO5JEL10 MM ×2 (14:04→14:11)
[2023-08-20] MEDS ORDERED: ONDA4TAB11 SL ×2 (14:04→14:11)
== END 2023-08-20 14:09 | disposition home or self-care (01) ==
LOC: EDUNIT# 11:39 → ER 11:42
DX: K52.9 Noninfective gastroenteritis and colitis, unspecified (principal); K20.90 Esophagitis, unspecified without bleeding; E66.9 Obesity, unspecified; Z68.38 Body mass index [BMI] 38.0-38.9, adult
CPT/HCPCS: 70360